=== PATIENT | female | born 1955 | race Caucasian/White ===

== ENCOUNTER 2023-02-20 09:34 | Inpatient (IN) ==
[2023-02-20] MEDS ORDERED: SODIUM CHLORIDE 0.9% 500 ML IV STA (09:45)
[2023-02-20] MEDS ORDERED: dilTIAZem HCl 5 MG/ML 5 ML VIAL IV STA ×2 (09:57→11:33)
[2023-02-20] MEDS: dilTIAZem HCL 125 MG in DEXTROSE 5% 100 ML IV SCH ×2 (10:26→23:48)
[2023-02-20 10:44] LABS: Basophils # (auto) 0.02 K/uL (0-0.2); Basophils % (auto) 0.2 %; Eosinophils # (auto) 0.15 K/uL (0-0.50); Eosinophils % (auto) 1.6 %; Hemoglobin 13.1 g/dl (12.0-16.0); Immature Granulocytes # (auto) 0.25 K/uL (0.01-0.20); Immature Granulocytes % (auto) 2.6 %; Lymphocytes # (auto) 1.26 K/uL (1.2-3.4); Lymphocytes % (auto) 13.2 %; Mean Corpuscular Hemoglobin 28.9 pg (25.0-34.0); Mean Corpuscular Hgb Conc 33.6 g/dL (32.0-36.0); Mean Corpuscular Volume 85.9 fL (80.0-100.0); Mean Platelet Volume 10.5 fL (9.4-12.4); Monocytes # (auto) 0.61 K/uL (0.11-0.59); Monocytes % (auto) 6.4 %; Neutrophils # (auto) 7.25 K/uL (1.40-6.50); Platelet Count 242 K/uL (130-400); RDW Coefficient of Variation 14.4 % (11.5-14.5); RDW Standard Deviation 45.4 fL (36.4-46.3); Red Blood Count 4.54 M/uL (4.20-5.40); White Blood Count 9.54 K/ul (4.8-10.8)
[2023-02-20 10:51] LABS: Albumin Globulin Ratio 1.1 (0.9-2); Albumin Level 3.8 gm/dl (3.4-5.0); BUN Creatinine Ratio 26.7 (10-20); Bilirubin,Total 0.8 mg/dl (0.2-1.0); Calcium 8.7 mg/dl (8.6-10.3); Creatinine Clr Calc Pharmacy 73.1 ml/min; Est GFR (African American) 67.2 ml/min; Globulin 3.4 gm/dl (2.5-4.0); Magnesium 1.8 mg/dl (1.7-2.4); Potassium 3.1 mmol/L (3.5-5.1); Total Protein 7.2 gm/dl (6.0-8.3)
[2023-02-20 10:55] LABS: Troponin I High Sensitivity 8.8 pg/ml (0-14)
[2023-02-20 10:59] LABS: INR 2.8 (0.9-1.1); Partial Thromboplastin Ratio 1.4; Partial Thromboplastin Time 39.2 Seconds (21.0-31.0); Prothrombin Time 28.7 Seconds (9.0-12.0)
[2023-02-20 11:13] LABS: Lyme Ab IgG w/WB Rflx Negative (Negative); Lyme Ab IgM w/WB Rflx Negative (Negative)
[2023-02-20] MEDS ORDERED: POTASSIUM CHLORIDE / WTR 10 MEQ/100 ML PLCT IV ONE (11:33)
[2023-02-20] MEDS ORDERED: POTASSIUM CHLORIDE CRTAB 20 MEQ TABCR PO STA (11:33)
[2023-02-20] MEDS ORDERED: MAGNESIUM SULFATE / D5W 1 GM/100 ML BAG IV ONE ×2 (11:35→15:57)
--- NOTE | 2023-02-20 11:35 | Emergency Department Note ---
Impression & Plan Atrial fibrillation with rapid ventricular response, Acute hypokalemia ED Provider Note INFORMANT: Patient ED PROVIDER(S): Bassam Sol MD CHIEF COMPLAINT: New onset A-fib PLAN: Disposition: Admitted Condition: Good Outpatient prescription management: none Referral: None MEDICAL DECISION MAKING: Patient presented because of ruptured atrial fibrillation. She was evaluated. Clinically she was doing relatively well despite the tachycardia. She was started on Cardizem bolus and drip. This was titrated. The patient was found to have a mildly low magnesium and potassium with regards to this rapid A-fib. She was treated with IV magnesium and IV potassium. Patient received an additional Cardizem bolus. Her rate gradually improved. Patient was reassessed. Discussed further management in the hospital. Patient was in agreement. Consultation was made with the [facility] hospitalist service. Patient was evaluated in the ER admitted for further management Discussed with care process manager. Discussed with ED pharmacist. After review of the information above and other included data, I feel the patient is admission. Triage Nursing notes reviewed and agree them. Vital Signs: reviewed and remarkable for tachycardia Prior /Outside records reviewed: none Differential diagnosis: Premature contractions, electrolyte abnormality, cardiac dysrhythmia, thyroid dysfunction, pulmonary embolism, infection, gastrointestinal, as well as other pathologies. Diagnostics, as interpreted by me: ECG: Twelve-lead ECG reveals atrial fibrillation with rapid ventricular sponsor low-voltage QRS and a nonspecific ST abnormality at [address] elevation. Cardiac Monitoring: Cardiac monitoring ordered by me: The patient was placed on continuous cardiac monitoring and observed. It revealed atrial fibrillation at 153 bpm. Medical decision rules: none Imaging studies: Chest x-ray. Findings: A chest x-ray was performed and revealed no pneumothorax, effusion, infiltrate, pulmonary edema, free air under the diaph ragm, or wide mediastinum. Impression: No acute disease. HPI: The patient is a 67year old female who presents to the Emergency Room with complaints of new onset A-fib. This started several days ago and is persisting but intermittent. Patient notes that her smart watch was revealing periods of tachycardia. The patient also notes the following associated symptoms, none. The patient has been prescribed no new medication for relieving factors. Current pain is rated as 0/10. Patient went to the [facility] office and was directed to the ER due to findings consistent with atrial fibrillation. Respaire Dr. Cuenca at claimant thank you pt denies LOC, headache, fevers, chills, diaphoresis, visual changes, neck pain, chest pain, breathing difficulties, nausea, vomiting, abdominal pain, back pain, melena, hematochezia, urinary symptoms, numbness, weakness, lymphadenopathy, rash, or other complaints. PAST MEDICAL HISTORY: See Below, anticoagulated, PE PAST SURGICAL HISTORY: See Below, SOCIAL HISTORY: See Below, HOME MEDICATIONS: See Below ALLERGIES: See Below VITALS: See Below PHYSICAL EXAMINATION: ,GENERAL: Awake, alert, well-appearing, in no distress HENT: Normocephalic, atraumatic. Oropharynx unremarkable. EYES: Normal conjunctiva. Sclera non-icteric. NECK: Inspection normal. Non-tender. Supple. No nuchal rigidity. FROM. No masses. RESPIRATORY: Clear to auscultation. No wheezes. No rales. Normal respiratory effort. CARDIAC: Tachycardic rate. Irregular rhythm. No murmurs. No rubs. Extremities warm and well perfused. Pulses equal. No JVD. GI: Soft, non-distended. No tenderness to palpation. No rebound or guarding. No masses. RECTAL: Deferred. MUSCULOSKELETAL: Atraumatic. Chest examination reveals no tenderness. The back is symmetrical on inspection without obvious abnormality. There is no CVA tenderness to palpation. No joint edema. LOWER EXTREMITIES: Calves are equal size bilaterally and non-tender. No edema. Chronic venous discoloration. NEURO: Normal sensorium. No sensory or motor deficits noted. SKIN: No rash or jaundice noted. CRITICAL CARE: I have personally spent greater than 35 minutes of critical care time in the direct management of this patient. This includes bedside care, interpretation of diagnostic studies, and testing, discussion with consultants, patient, and family members, and other required patient management activities. These minutes are in excess of all separately billable procedures. Past Med/Surg History Medical History (Updated 02/20/23 @ 12:56 by Tatyana Boyd PA-C) Depression DVT (deep venous thrombosis) HTN (hypertension) Hx of pulmonary embolus Hx of thyroid cancer Post-surgical hypothyroidism Surgical History H/O neck surgery H/O tubal ligation Hx of thyroidectomy with neck dissection for thyroid cancer Family History Father Heart disease Myocardial infarction first at age 48 Other Breast cancer Social History (Updated 02/20/23 @ 12:11 by Tatyana Boyd PA-C) Smoking Status: Never smoker Do You Dip or Chew Tobacco: No; Hx Alcohol Use: No Hx Substance Use: No Preferred Language: Yoruba marital status: Feels Safe at Home: Yes Allergies Allergies Allergy/AdvReac Type Severity Reaction Status Date / Time No Known Allergies Allergy Unknown 0 Verified 02/20/23 12:02 Home Meds Home Medications Medication Instructions Recorded Confirmed amlodipine 10 mg tablet 10 mg PO DAILY 02/20/23 02/20/23 cholecalciferol (vitamin D3) 10 10 mcg PO DAILY 02/20/23 02/20/23 mcg (400 unit) tablet (Vitamin D3) fluticasone propionate 50 50 mcg intranasal DAILY 02/20/23 02/20/23 mcg/actuation nasal spray,suspension hydrochlorothiazide 25 mg tablet 25 mg PO BID 02/20/23 02/20/23 levothyroxine 175 mcg tablet 175 mcg PO DAILY@0630 02/20/23 02/20/23 omeprazole 20 mg capsule,delayed 20 mg PO DAILY 02/20/23 02/20/23 release warfarin 10 mg tablet 5 mg PO MO@1600 02/20/23 02/20/23 warfarin 10 mg tablet 10 mg PO SUTUWETHFRSA@1600 02/20/23 02/20/23 Results & Data (ED) Vital Signs Vital Signs - 24 hr 02/20/23 09:41 02/20/23 09:46 02/20/23 09:58 Temperature 36.5 C Temperature Source Oral Pulse Rate 188 H 171 H Pulse Rate [Apical] 158 H Pulse Rhythm [Apical] Pulse Strength [Apical] Respiratory Rate 16 15 Blood Pressure 137/88 Blood Pressure [Left Arm] 137/100 Blood Pressure Mean 104 Blood Pressure Mean [Left Arm] 112 Blood Pressure Position Sitting Blood Pressure Position [Left Arm] Pulse Oximetry 98 98 Oxygen Delivery Method Room Air Oxygen Flow Rate Sepsis Recent Fever Within 48 Hours No Sepsis New/Unexplained Change in Mental Status No Sepsis Action Taken by Nursing No Action Required 02/20/23 10:52 02/20/23 11:08 02/20/23 11:46 Temperature Temperature Source Pulse Rate Pulse Rate [Apical] 144 H 153 H 154 H Pulse Rhythm [Apical] Irregular Pulse Strength [Apical] Normal Respiratory Rate 18 16 18 Blood Pressure Blood Pressure [Left Arm] 118/96 134/80 119/98 Blood Pressure Mean Blood Pressure Mean [Left Arm] 103 98 105 Blood Pressure Position Blood Pressure Position [Left Arm] Lying Pulse Oximetry 93 93 94 Oxygen Delivery Method Nasal Cannula Room Air Oxygen Flow Rate 2 Sepsis Recent Fever Within 48 Hours Sepsis New/Unexplained Change in Mental Status Sepsis Action Taken by Nursing 02/20/23 13:31 02/20/23 14:00 Temperature Temperature Source Pulse Rate Pulse Rate [Apical] 131 H 119 H Pulse Rhythm [Apical] Pulse Strength [Apical] Respiratory Rate 22 19 Blood Pressure Blood Pressure [Left Arm] 113/89 Blood Pressure Mean Blood Pressure Mean [Left Arm] 97 Blood Pressure Position Blood Pressure Position [Left Arm] Sitting Pulse Oximetry 93 93 Oxygen Delivery Method Room Air Oxygen Flow Rate Sepsis Recent Fever Within 48 Hours Sepsis New/Unexplained Change in Mental Status Sepsis Action Taken by Nursing Laboratory Data 02/20/23 09:59 02/20/23 09:59 Lab Results 02/20/23 02/20/23 02/20/23 Range/Units 09:59 09:59 09:59 WBC 9.54 (4.8-10.8) K/ul RBC 4.54 (4.20-5.40) M/uL Hgb 13.1 (12.0-16.0) g/dl Hct 39.0 (37.0-47.0) % MCV 85.9 (80.0-100.0) fL MCH 28.9 (25.0-34.0) pg MCHC 33.6 (32.0-36.0) g/dL RDW Std Deviation 45.4 (36.4-46.3) fL RDW Coeff of Torsten 14.4 (11.5-14.5) % Plt Count 242 (130-400) K/uL MPV 10.5 (9.4-12.4) fL Immature Gran % (Auto) 2.6 % Neut % (Auto) 76.0 % Lymph % (Auto) 13.2 % [place] % (Auto) 6.4 % Eos % (Auto) 1.6 % Baso % (Auto) 0.2 % Neut # (Auto) 7.25 H (1.40-6.50) K/uL Lymph # (Auto) 1.26 (1.2-3.4) K/uL [place] # (Auto) 0.61 H (0.11-0.59) K/uL Eos # (Auto) 0.15 (0-0.50) K/uL Baso # (Auto) 0.02 (0-0.2) K/uL Immature Gran # (Auto) 0.25 H (0.01-0.20) K/uL PT 28.7 H (9.0-12.0) Seconds INR 2.8 H (0.9-1.1) APTT 39.2 H (21.0-31.0) Seconds PTT Ratio 1.4 Sodium 139 (136-145) mmol/L Potassium 3.1 L (3.5-5.1) mmol/L Chloride 101 (98-107) mmol/L Carbon Dioxide 27 (21-32) mmol/L Anion Gap 11 (3-11) BUN 27 H (6-23) mg/dl Creatinine 1.01 (0.6-1.2) mg/dl Est Cr Clr Drug Dosing 73.1 ml/min Est GFR ( Amer) 67.2 ml/min Est GFR (Non-Af Amer) 58.0 ml/min BUN/Creatinine Ratio 26.7 H (10-20) Glucose 104 H (70-99(Fasting)) mg/dl Calcium 8.7 (8.6-10.3) mg/dl Magnesium 1.8 (1.7-2.4) mg/dl Total Bilirubin 0.8 (0.2-1.0) mg/dl AST 123 H (13-39) U/L ALT 88 H (7-52) U/L Alkaline Phosphatase 109 H (34-104) U/L Troponin I High Sens 8.8 (0-14) pg/ml Total Protein 7.2 (6.0-8.3) gm/dl Albumin 3.8 (3.4-5.0) gm/dl Globulin 3.4 (2.5-4.0) gm/dl Albumin/Globulin Ratio 1.1 (0.9-2) TSH (0.300-4.500) uIu/ml Lyme Disease IgG Ab (Negative) Lyme Disease IgM Ab (Negative) SARS-CoV-2, RNA, NAAT (NEGATIVE) 02/20/23 02/20/23 02/20/23 Range/Units 09:59 09:59 Unknown WBC (4.8-10.8) K/ul RBC (4.20-5.40) M/uL Hgb (12.0-16.0) g/dl Hct (37.0-47.0) % MCV (80.0-100.0) fL MCH (25.0-34.0) pg MCHC (32.0-36.0) g/dL RDW Std Deviation (36.4-46.3) fL RDW Coeff of Torsten (11.5-14.5) % Plt Count (130-400) K/uL MPV (9.4-12.4) fL Immature Gran % (Auto) % Neut % (Auto) % Lymph % (Auto) % [place] % (Auto) % Eos % (Auto) % Baso % (Auto) % Neut # (Auto) (1.40-6.50) K/uL Lymph # (Auto) (1.2-3.4) K/uL [place] # (Auto) (0.11-0.59) K/uL Eos # (Auto) (0-0.50) K/uL Baso # (Auto) (0-0.2) K/uL Immature Gran # (Auto) (0.01-0.20) K/uL PT (9.0-12.0) Seconds INR (0.9-1.1) APTT (21.0-31.0) Seconds PTT Ratio Sodium (136-145) mmol/L Potassium (3.5-5.1) mmol/L Chloride (98-107) mmol/L Carbon Dioxide (21-32) mmol/L Anion Gap (3-11) BUN (6-23) mg/dl Creatinine (0.6-1.2) mg/dl Est Cr Clr Drug Dosing ml/min Est GFR ( Amer) ml/min Est GFR (Non-Af Amer) ml/min BUN/Creatinine Ratio (10-20) Glucose (70-99(Fasting)) mg/dl Calcium (8.6-10.3) mg/dl Magnesium (1.7-2.4) mg/dl Total Bilirubin (0.2-1.0) mg/dl AST (13-39) U/L ALT (7-52) U/L Alkaline Phosphatase (34-104) U/L Troponin I High Sens (0-14) pg/ml Total Protein (6.0-8.3) gm/dl Albumin (3.4-5.0) gm/dl Globulin (2.5-4.0) gm/dl Albumin/Globulin Ratio (0.9-2) TSH 1.949 (0.300-4.500) uIu/ml Lyme Disease IgG Ab Negative (Negative) Lyme Disease IgM Ab Negative (Negative) SARS-CoV-2, RNA, NAAT NEGATIVE (NEGATIVE) Administered Medications Diltiazem HCl 125 mg/ Dextrose 125 mls @ 10 mls/hr IV .[id number] [facility]; Protocol Stop: 03/22/23 09:59 Last Titration: 02/20/23 10:56 Dose: 10 mg/hr, 10 mls/hr Documented By: ROVERTO Co-signed By: BERNIE Admin: 02/20/23 10:26 Dose: 5 mg/hr, 5 mls/hr Documented By: ANATOLIY Co-signed By: GAGE Discontinued Medications Acetaminophen (Acetaminophen 325 Mg Tab) 650 mg PO NOW STA Stop: 02/20/23 12:41 Last Admin: 02/20/23 12:48 Dose: 650 mg Documented By: ROVERTO Diltiazem HCl (Diltiazem Hcl 5 Mg/Ml 5 Ml Vial) 10 mg IV NOW STA Stop: 02/20/23 09:58 Last Admin: 02/20/23 10:02 Dose: 10 mg Documented By: ANATOLIY Co-signed By: GAGE Diltiazem HCl (Diltiazem Hcl 5 Mg/Ml 5 Ml Vial) 10 mg IV NOW STA Stop: 02/20/23 11:34 Last Admin: 02/20/23 12:11 Dose: 10 mg Documented By: ROVERTO Co-signed By: BERNIE Sodium Chloride (Nss) 500 mls @ 999 mls/hr IV .Q31M STA Stop: 02/20/23 10:15 Last Infusion: 02/20/23 10:39 Dose: 0 mls/hr Documented By: Admin: 02/20/23 10:01 Dose: 999 mls/hr Documented By: ANATOLIY Potassium Chloride (K Moe / Wtr) 10 meq in 100 mls @ 100 mls/hr IV ONE ONE; Protocol Stop: 02/20/23 12:32 Last Admin: 02/20/23 12:14 Dose: 100 mls/hr Documented By: ROVERTO Magnesium Sulfate/Dextrose (Magnesium Sulfate / D5w) 1 gm in 100 mls @ 50 mls/hr IV ONE ONE Stop: 02/20/23 13:34 Last Admin: 02/20/23 12:19 Dose: 50 mls/hr Documented By: ROVERTO Metoprolol Tartrate (Metoprolol Tartrate 25 Mg Tab) 25 mg PO NOW STA Stop: 02/20/23 12:53 Last Admin: 02/20/23 13:11 Dose: 25 mg Documented By: BERNIE Potassium Chloride (Potassium Chloride Crtab 20 Meq Tabcr) 40 meq PO NOW STA Stop: 02/20/23 11:34 Last Admin: 02/20/23 12:14 Dose: 40 meq Documented By: ROVERTO Imaging Data Radiologist's Impression: Chest X-Ray 02/20/23 11:46 SINGLE VIEW CHEST CLINICAL HISTORY: Rapid atrial fibrillation. FINDINGS: An AP, portable, upright chest radiograph is compared to study dated 05/05/2009. The heart is enlarged. There is mild pulmonary vascular congestion. There is mild elevation of right hemidiaphragm. Airspace opacities are seen at both lung bases. No large pleural effusion or pneumothorax is seen. The skeletal structures are osteopenic. The bony thorax is grossly intact. IMPRESSION: 1. Cardiomegaly with mild pulmonary vascular congestion. 2. Bibasilar opacities could represent atelectasis versus a mild pneumonitis. Correlate clinically. ACT 112: Negative or not required by law. Electronically signed by: Momo Sewell M.D. 02/20/2023 12:[address] 02/20/23 12:56 CT chest diagnostic wo con CLINICAL HISTORY: ? pneumonitis, cough x 6 months TECHNIQUE: Multidetector row helical CT of the chest was performed. Coronal and sagittal reformations were obtained. Automated dose lowering techniques and/or adjustment according to patient size were utilized for this exam. CT DOSE: 856.73 mGy.cm Comparison: Comparison is made to chest radiograph 12/21/2022 FINDINGS: Lungs and pleura: No airspace opacities are seen. Interlobular septal thickening is seen most prominent in the lung bases. There is bronchial wall thickening as well. Multiple pulmonary nodules are seen including a 4 mm nodule in the right upper lobe (series 4 image 78), 4 mm nodule in the right upper lobe (image 103) and 3 mm nodules in the bilateral lower lobes (images [id number]), respectively. Heart and pericardium: Heart size is normal. No pericardial effusion. Vessels: Moderate atherosclerotic changes in the aorta and coronary arteries. Pulmonary trunk measures 37 mm in diameter. Mediastinum and javier: Subcentimeter lymph nodes are seen. Chest wall and lower neck: Subcentimeter right lower cervical node is seen. Abdomen: Calcifications in the spleen may represent prior granulomatous disease. Bones: Subacute to chronic fracture of the right lateral fourth rib noted. IMPRESSION: 1. No evidence of pneumonia. There is pulmonary hypertension with interstitial pulmonary edema. 2. Tiny pulmonary nodules as above. According to Fleischner criteria, no follow-up is required in low risk patients, in high-risk patients, a 12 month follow-up CT can be optionally performed. ACT 112: Negative or not required by law. Electronically signed by: Chuckie Lira M.D. 02/20/2023 2:30 PM Discharge Plan Visit Data Chief Complaint: Arrhythmia/Palpitations Stated Complaint: ABNORMAL HEART PALPITATIONS,AFIB ED Provider: Bassam Sol Discharge Problem: Atrial fibrillation with rapid ventricular response, Acute hypokalemia Forms Stand Alone Forms: [facility] [employer] Prescriptions Prescriptions: No Action levothyroxine 175 mcg tablet 175 mcg PO DAILY@0630 warfarin 10 mg tablet 10 mg PO SUTUWETHFRSA@1600 warfarin 10 mg tablet 5 mg PO MO@1600 amlodipine 10 mg tablet 10 mg PO DAILY omeprazole 20 mg capsule,delayed release(DR/EC) 20 mg PO DAILY hydrochlorothiazide 25 mg tablet 25 mg PO BID fluticasone propionate 50 mcg/actuation spray,suspension 50 mcg INTRANASAL DAILY cholecalciferol (vitamin D3) [Vitamin D3] 10 mcg (400 unit) Tablet 10 mcg PO DAILY Referrals Referrals: Campos Lange MD [Primary Care Provider] -
--- NOTE | 2023-02-20 11:58 | History & Physical Report ---
Date of Service February 20, 2023 Assessment & Plan (1) Atrial fibrillation with rapid ventricular response: (2) Acute hypokalemia: (3) HTN (hypertension): (4) Post-surgical hypothyroidism: (5) Chronic cough: Plan This is a 67-year-old female who has significant past medical history of HTN, hypothyroidism, CKD stage III, history of PE on long-term anticoagulation with warfarin and history of thyroid cancer who presents to ED secondary to referral from PCP 2/2 Afib. A-fib with RVR, new onset Admit to medical Continue diltiazem drip Initiate metoprolol tartrate 25 mg twice daily, first dose now Obtain echocardiogram Consult cardiology Replete electrolytes to keep K greater than 4 and mag greater than 2 INR therapeutic in setting of history of PE, [id number] 3 We will make n.p.o. after midnight in event procedure warranted Patient with chronic cough x6 months, chest x-ray showing atelectasis versus pneumonitis Obtain procalcitonin and chest CT without contrast as respiratory component could be possible because of A-fib Hypokalemia received 40meq KCL in ED along with 10meq K rider will give additional 40meq KCL at 1600 replete mag as well to keep > 2 Hypertension BP normal, hold amlodipine and HCTZ for now unless patient becomes hypertensive while on diltiazem drip and titrating metoprolol tartrate Postsurgical hypothyroidism Continue levothyroxine, TSH normal Chronic cough Patient's been following [facility] Recently had PET scan which was unremarkable showing no change in uptake of pulmonary nodules but did show new incidental finding of rib fracture Chest x-ray concerning for atelectasis versus pneumonitis Obtain procalcitonin and chest CT Encourage incentive spirometry 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 consider OP US DVT prophylaxis: Continue warfarin Full code PCP: Nazario Dispo: PCU for heart rate management Patient was seen in collaboration with, Dr. Smallwood, please see addendum A total of 75 was spent coordinating, documenting, and providing care for this patient excluding time spent in the performance of separately billed services. This included personally viewing all current laboratories and imaging studies, medication reconciliation, outpatient chart review, and discussion with specialists. History of Present Illness Chief Complaint: Referred by PCP office due to Afib. Primary Care Provider: Campos Lange MD This is a 67-year-old female who has significant past medical history of HTN, hypothyroidism, CKD stage III, history of PE on long-term anticoagulation with warfarin and history of thyroid cancer who presents to ED secondary to referral from PCP 2/2 Afib. Pt was seen in outpatient clinic today where outpatient EKG revealed afib with RVR. Her smart watch has been alerting her of elevated heart rates for the past few days. She states she saw provider today initally due to R sided neck and shoulder pain that started two days ago. She has tried tylenol with some relief. Pain is not related to movement and nothing seems to make worse. She has never has similar pain in the past. Denies any numbness or tingling or radiating pain to R arm. She also reports her Iwatch telling her that her HR was high in the 150s. In clinic EKG revealed afib with RVR so she was referred here. No prior hx of afib or cad. Denies CP, sob, dizziness, lightheaded, n/v/d, abd pain, change in bowel or urinary habits. Continues to have chronic dry cough. Also has R anterior chest/rib discomfort from broken ribs. Of significance patient has recently been following with pulmonology due to persistent cough. She has been prescribed Flonase and omeprazole without improvement in symptoms and her lisinopril has also been discontinued. She recently had a PET scan due to prior history of thyroid cancer which showed incidental finding of right-sided rib fractures and otherwise was negative except for stable pulm nodules. CT scan chest also showed right hilar lymph nodes unchanged, 1 right upper lobe nodule and 2 subcentimeter parenchymal nodules in the left lower lobe with low likelihood of malignancy. Tessalon Perles were added along with lidocaine patch for right-sided rib discomfort. She also was treated with a 2-week course of Augmentin antibiotic therapy due to recurrent bronchitis. Subsequently patient developed rash for which she saw dermatology on 02/15. She was prescribed a short course of prednisone at this appointment which was to finish today but she discontinued and antibiotic was d/c at that time. Allergies Allergy/AdvReac Type Severity Reaction Status Date / Time No Known Allergies Allergy Unknown 0 Verified 02/20/23 12:02 Home Medications Medication Instructions Recorded Confirmed Type amlodipine 10 mg tablet 10 mg PO DAILY 02/20/23 02/20/23 History cholecalciferol (vitamin D3) 10 10 mcg PO DAILY 02/20/23 02/20/23 History mcg (400 unit) tablet (Vitamin D3) fluticasone propionate 50 50 mcg intranasal DAILY 02/20/23 02/20/23 History mcg/actuation nasal spray,suspension hydrochlorothiazide 25 mg tablet 25 mg PO BID 02/20/23 02/20/23 History levothyroxine 175 mcg tablet 175 mcg PO DAILY@0602/20/23 02/20/23 History omeprazole 20 mg capsule,delayed 20 mg PO DAILY 02/20/23 02/20/23 History release warfarin 10 mg tablet 5 mg PO MO@1600 02/20/23 02/20/23 History warfarin 10 mg tablet 10 mg PO SUTUWETHFRSA@1600 02/20/23 02/20/23 History Past Med/Surg History Medical History (Updated 02/20/23 @ 12:56 by Tatyana Boyd PA-C) Depression DVT (deep venous thrombosis) HTN (hypertension) Hx of pulmonary embolus Hx of thyroid cancer Post-surgical hypothyroidism Surgical History H/O neck surgery H/O tubal ligation Hx of thyroidectomy with neck dissection for thyroid cancer Family History Father Heart disease Myocardial infarction first at age 48 Other Breast cancer Social History (Updated 02/20/23 @ 12:11 by Tatyana Boyd PA-C) Smoking Status: Never smoker Do You Dip or Chew Tobacco: No; Hx Alcohol Use: No Hx Substance Use: No Preferred Language: Tajik marital status: Feels Safe at Home: Yes Review of Systems Review of Systems: All systems reviewed & are unremarkable except as noted in HPI & below Physical Exam Physical Exam: Constitutional: WD/WN, vitals as above, NAD, sitting up in bed, pleasant, conversing easily Head: Normocephalic, Atraumatic Eyes: PERRL, conjunctivae normal, anicteric sclerae ENMT: external ear and nose normal, oropharynx normal Neck: trachea midline, no thyromegaly normal visual inspection Respiratory: normal respiratory effort, lungs clear to auscultation, no wheeze, rales, rhonchi. Normal insp/exp effort, no accessory muscle use Cardiovascular: IRR/IRR, no murmur, b/l obese lower ext, no meenakshi edema, b/l varicosities Vessels: no JVD or carotid bruit Chest: normal inspection of chest Abdomen: normal bowel sounds, soft, nontender, no hepatosplenomegaly Musculoskeletal: no cyanosis or clubbing, extremities motor strength 5/5 Skin: no rashes, warm and dry normal turgor Neurologic: PERRL, EOMI, accommodation nl, no face palsy, no dysarthria CN's II-XI intact bilaterally and moves all extremities Psychiatric: A+Ox3, euthymic affect Lymphatic: no cervical or axillary lymphadenopathy : deferred Results & Data Results & Data Vital Signs (Past 12 Hours) Vital Signs Temp Pulse Pulse Resp BP BP Pulse Ox 02/20/23 11:46 154 H 18 119/98 94 02/20/23 11:08 153 H 16 134/80 93 02/20/23 10:52 144 H 18 118/96 93 02/20/23 09:58 171 H 02/20/23 09:46 158 H 15 137/100 98 02/20/23 09:41 36.5 C 188 H 16 137/88 98 O2 Del Method O2 Flow Rate 02/20/23 11:46 02/20/23 11:08 Room Air 02/20/23 10:52 Nasal Cannula 2 02/20/23 09:58 02/20/23 09:46 02/20/23 09:41 Room Air Diagnostic Findings Chest X-Ray 02/20/23 11:46 SINGLE VIEW CHEST CLINICAL HISTORY: Rapid atrial fibrillation. FINDINGS: An AP, portable, upright chest radiograph is compared to study dated 05/05/2009. The heart is enlarged. There is mild pulmonary vascular congestion. There is mild elevation of right hemidiaphragm. Airspace opacities are seen at both lung bases. No large pleural effusion or pneumothorax is seen. The skeletal structures are osteopenic. The bony thorax is grossly intact. IMPRESSION: 1. Cardiomegaly with mild pulmonary vascular congestion. 2. Bibasilar opacities could represent atelectasis versus a mild pneumonitis. Co rrelate clinically. ACT 112: Negative or not required by law. Electronically signed by: Momo Sewell M.D. 02/20/2023 12:27 PM Medications Administered Medication List Diltiazem HCl 125 mg/ Dextrose 125 mls @ 5 mls/hr IV .Q24H [facility]; Protocol Stop: 03/22/23 09:59 Last Admin: 02/20/23 10:26 Dose: 5 mg/hr, 5 mls/hr Documented By: ANATOLIY Co-signed By: GAGE Discontinued Medications Diltiazem HCl (Diltiazem Hcl 5 Mg/Ml 5 Ml Vial) 10 mg IV NOW STA Stop: 02/20/23 09:58 Last Admin: 02/20/23 10:02 Dose: 10 mg Documented By: ANATOLIY Co-signed By: GAGE Sodium Chloride (Nss) 500 mls @ 999 mls/hr IV .Q31M STA Stop: 02/20/23 10:15 Last Infusion: 02/20/23 10:39 Dose: 0 mls/hr Documented By: Admin: 02/20/23 10:01 Dose: 999 mls/hr Documented By: ANATOLIY ECG Rate (beats per minute): 165 Rhythm: atrial fibrillation COVID-19 Results Results COVID-19 Adm Lab Results: RBC 4.54 M/uL (4.20-5.40) 02/20/23 WBC 9.54 K/ul (4.8-10.8) 02/20/23 Hgb 13.1 g/dl (12.0-16.0) 02/20/23 Hct 39.0 % (37.0-47.0) 02/20/23 Plt Count 242 K/uL (130-400) 02/20/23 Neutrophils (%) (Auto) 76.0 % 02/20/23 Lymphocytes (%) (Auto) 13.2 % 02/20/23 Monocytes # (Auto) 0.61 K/uL (0.11-0.59) H 02/20/23 Eosinophils # (Auto) 0.15 K/uL (0-0.50) 02/20/23 Immature Granulocyte % (Auto) 2.6 % 02/20/23 Neutrophils # (Auto) 7.25 K/uL (1.40-6.50) H 02/20/23 Lymphocytes # (Auto) 1.26 K/uL (1.2-3.4) 02/20/23 Monocytes # (Auto) 0.61 K/uL (0.11-0.59) H 02/20/23 Eosinophils # (Auto) 0.15 K/uL (0-0.50) 02/20/23 Basophils # (Auto) 0.02 K/uL (0-0.2) 02/20/23 Immature Granulocyte # (Auto) 0.25 K/uL (0.01-0.20) H 02/20 Na 139 mmol/L (136-145) 02/20/23 K 3.1 mmol/L (3.5-5.1) L 02/20/23 Cl 101 mmol/L (98-107) 02/20/23 CO2 27 mmol/L (21-32) 02/20/23 Anion Gap 11 (3-11) 02/20/23 BUN 27 mg/dl (6-23) H 02/20/23 Creatinine 1.01 mg/dl (0.6-1.2) 02/20/23 BUN/Creatinine Ratio 26.7 (10-20) H 02/20/23 Glucose Level 104 mg/dl (70-99(Fasting)) H 02/20/23 Ca 8.7 mg/dl (8.6-10.3) 02/20/23 Total Bilirubin 0.8 mg/dl (0.2-1.0) 02/20/23 AST/SGOT 123 U/L (13-39) H 02/20/23 ALT/SGPT 88 U/L (7-52) H 02/20/23 Alkaline Phosphatase 109 U/L (34-104) H 02/20/23 Total Protein 7.2 gm/dl (6.0-8.3) 02/20/23 Albumin 3.8 gm/dl (3.4-5.0) 02/20/23 Globulin 3.4 gm/dl (2.5-4.0) 02/20/23 Albumin/Globulin Ratio 1.1 (0.9-2) 02/20/23 Procalcitonin 0.19 ng/ml (0-0.5) 02/20/23 PTT 39.2 Seconds (21.0-31.0) H 02/20/23 INR 2.8 (0.9-1.1) H 02/20/23 SARS-CoV-2, RNA, NAAT NEGATIVE (NEGATIVE) 02/20/[address] 02/20/23 Chest X-Ray 02/20/23 Code Status & VTE Plan Code Status FULL CODE Supervising Physician Co-Signing Physician Notes Attending addendum: The patient was seen and examined in the emergency room She has been complaining of some right shoulder and upper back pain for the last 2 days without any associated symptoms She was sent in from doctor's office with tachycardia which was noted by the patient in her watch She denies any palpitation, chest pain, shortness of breath Complains to have dry cough for a while and that has improved a little following stopping of lisinopril On examination Remains stable in the emergency room and the heart rate has been improving Otherwise hemodynamically stable Chestclear to auscultate bilaterally HeartS1, S2, irregularly irregular without any murmur Abdomenbenign Extremitieschronic swelling of the legs likely secondary to lymphedema and may have trace edema as well 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
--- NOTE | 2023-02-20 12:29 | XRay Report ---
SINGLE VIEW CHEST CLINICAL HISTORY: Rapid atrial fibrillation. FINDINGS: An AP, portable, upright chest radiograph is compared to study dated 05/05/2009. The heart i s enlarged. There is mild pulmonary vascular congestion. There is mild elevation of right hemidiaphra gm. Airspace opacities are seen at both lung bases. No large pleural effusion or pneumothorax is seen . The skeletal structures are osteopenic. The bony thorax is grossly intact. IMPRESSION: 1. Cardiomegaly with mild pulmonary vascular congestion. 2. Bibasilar opacities could represent atelectasis versus a mild pneumonitis. Correlate clinically. ACT 112: Negative or not required by law. Electronically signed by: Momo Sewell M.D. 02/20/2023 12:27 PM
[2023-02-20] MEDS ORDERED: ACETAMINOPHEN 325 MG TAB PO STA (12:40)
[2023-02-20] MEDS ORDERED: METOPROLOL TARTRATE 25 MG TAB PO STA (12:52)
--- NOTE | 2023-02-20 14:31 | CT Scan Report ---
CT chest diagnostic wo con CLINICAL HISTORY: ? pneumonitis, cough x 6 months TECHNIQUE: Multidetector row helical CT of the chest was performed. Coronal and sagittal reformations were obtained. Automated dose lowering techniques and/or adjustment according to patient size were u tilized for this exam. CT DOSE: 856.73 mGy.cm Comparison: Comparison is made to chest radiograph 12/21/2022 FINDINGS: Lungs and pleura: No airspace opacities are seen. Interlobular septal thickening is seen most promine nt in the lung bases. There is bronchial wall thickening as well. Multiple pulmonary nodules are seen including a 4 mm nodule in the right upper lobe (series 4 image 78), 4 mm nodule in the right upper lobe (image 103) and 3 mm nodules in the bilateral lower lobes (images 1 [id number]), respectively. Heart and pericardium: Heart size is normal. No pericardial effusion. Vessels: Moderate atherosclerotic changes in the aorta and coronary arteries. Pulmonary trunk measure s 37 mm in diameter. Mediastinum and javier: Subcentimeter lymph nodes are seen. Chest wall and lower neck: Subcentimeter right lower cervical node is seen. Abdomen: Calcifications in the spleen may represent prior granulomatous disease. Bones: Subacute to chronic fracture of the right lateral fourth rib noted. IMPRESSION: 1. No evidence of pneumonia. There is pulmonary hypertension with interstitial pulmonary edema. 2. Tiny pulmonary nodules as above. According to Fleischner criteria, no follow-up is required in lo w risk patients, in high-risk patients, a 12 month follow-up CT can be optionally performed. ACT 112: Negative or not required by law. Electronically signed by: Chuckie Lira M.D. 02/20/2023 2:30 PM
[2023-02-20] MEDS ORDERED: MAGNESIUM HYDROXIDE SUSP 30 ML UDC PO PRN (15:57)
[2023-02-20] MEDS ORDERED: POLYETHYLENE (MIRALAX) 17 GM PACK PO PRN (15:57)
[2023-02-20] MEDS ORDERED: ALUMINUM/MAGNESIUM SUSP 30 ML UDC PO PRN (15:57)
[2023-02-20] MEDS ORDERED: ACETAMINOPHEN 325 MG TAB PO PRN (15:57)
[2023-02-20] MEDS ORDERED: ONDANSETRON INJ 2 MG/ML 2 ML VIAL IV PRN (15:57)
[2023-02-20] MEDS ORDERED: POTASSIUM CHLORIDE CRTAB 20 MEQ TABCR PO ONE (16:00)
--- NOTE | 2023-02-20 17:04 | Ultrasound Report ---
ULTRASOUND RIGHT UPPER QUADRANT ABDOMEN CLINICAL HISTORY: Elevated hepatic transaminases. COMPARISON STUDY: No priors. TECHNIQUE: Real-time, grayscale, and color flow sonography of the right upper quadrant of the abdomen was performed. Images are reviewed in the transverse and longitudinal planes. FINDINGS: Liver: The liver is mildly enlarged, cirrhotic in morphology, and heterogeneous in echotexture. There is nodularity of the hepatic surface contour. There is no intrahepatic biliary ductal dilatation. Th e main portal vein is patent. Gallbladder: The gallbladder is normal in appearance. No gallstones are identified. There is no gallb ladder wall thickening or pericholecystic fluid. A sonographic Mcgarry's sign is reportedly absent. Th e common bile duct measures up to 0.2 cm in diameter. Pancreas: Visualized portions of the pancreatic head and body are normal in appearance. The splenic v ein is patent. Right kidney: Survey images of the right kidney demonstrate mild cortical atrophy. Echotexture is nor mal. There is no hydronephrosis. A 4.0 cm renal sinus cyst is noted. Ascites: None. IMPRESSION: 1. The liver is cirrhotic in morphology and heterogeneous in echotexture. 2. No gallstones are seen. ACT 112: Negative or not required by law. Electronically signed by: Momo Sewell M.D. 02/20/2023 5:03 PM
[2023-02-20] MEDS: WARFARIN SOD 10 MG TAB PO SCH (17:22)
[2023-02-20] MEDS: METOPROLOL TARTRATE 25 MG TAB PO SCH (20:51)
[2023-02-20] MEDS ORDERED: oxyCODONE HCL IR 5 MG TAB (IMMEDIATE RELEASE) PO PRN (23:17)
[2023-02-21] MEDS ORDERED: FUROSEMIDE INJ 20 MG/2 ML VIAL IV ONE (00:38)
--- NOTE | 2023-02-21 01:15 | CT Scan Report ---
Exam(s): CT HEAD Without Contrast EXAM: CT Head Without Intravenous Contrast CLINICAL HISTORY: Reason for exam: villeda. TECHNIQUE: Axial computed tomography images of the head/brain without intravenous contrast. Automated exposure control was utilized for the study. A dose lowering technique was utilized adhering to the principles of ALARA. COMPARISON: No relevant prior studies available. FINDINGS: Brain: Mild volume loss with prominent ventricles and sulci. Mild periventricular and subcortical white matter hypoattenuation likely reflects chronic small vessel disease. No hemorrhage. Ventricles: See above. Bones/joints: Unremarkable. No acute fracture. Soft tissues: Unremarkable. Sinuses: Unremarkable as visualized. No acute sinusitis. Mastoid air cells: Unremarkable as visualized. No mastoid effusion. IMPRESSION: No acute findings in the head/brain. Electronically signed by: Mellissa Olvera M.D. 02/21/23 01:14 AM
--- NOTE | 2023-02-21 01:21 | CT Scan Report ---
Exam(s): CT C SPINE EXAM: CT Cervical Spine Without Intravenous Contrast CLINICAL HISTORY: Reason for exam: neck pain. TECHNIQUE: Axial computed tomography images of the cervical spine without intravenous contrast. Automated exposure control was utilized for the study. A dose lowering technique was utilized adhering to the principles of ALARA. COMPARISON: No relevant prior studies available. FINDINGS: Vertebrae: Grade 1 anterolisthesis of C4 on 5. Straightening of the cervical lordosis. No acute fracture. Discs/spinal canal/neural foramina: Degenerative changes. No severe spinal canal stenosis. C5-6 degenerative changes with mild to moderate central canal and foraminal stenoses. Soft tissues: Unremarkable. IMPRESSION: 1. No evidence of acute fracture or malalignment. 2. Degenerative changes as above. Electronically signed by: Mellissa Olvera M.D. 02/21/23 01:20 AM
[2023-02-21 06:14] LABS: Hematocrit (blood only) 37.7 % (37.0-47.0); Hemoglobin 12.5 g/dl (12.0-16.0); Mean Corpuscular Hemoglobin 28.7 pg (25.0-34.0); Mean Corpuscular Hgb Conc 33.2 g/dL (32.0-36.0); Mean Corpuscular Volume 86.7 fL (80.0-100.0); Platelet Count 167 K/uL (130-400); RDW Coefficient of Variation 14.6 % (11.5-14.5); RDW Standard Deviation 46.5 fL (36.4-46.3); Red Blood Count 4.35 M/uL (4.20-5.40); White Blood Count 9.45 K/ul (4.8-10.8)
[2023-02-21] MEDS ORDERED: LEVOTHYROXINE SODIUM 175 MCG TABLET PO SCH (06:30)
[2023-02-21 06:36] LABS: Alanine Aminotransferase 98 U/L (7-52); Albumin Globulin Ratio 1.2 (0.9-2); Albumin Level 3.5 gm/dl (3.4-5.0); Alkaline Phosphatase 93 U/L (34-104); Anion Gap 7 (3-11); BUN Creatinine Ratio 26.9 (10-20); Bilirubin,Total 0.9 mg/dl (0.2-1.0); Blood Urea Nitrogen 25 mg/dl (6-23); Calcium 8.4 mg/dl (8.6-10.3); Carbon Dioxide 26 mmol/L (21-32); Chloride 102 mmol/L (98-107); Creatinine Clr Calc Pharmacy 78.7 ml/min; Est GFR (African American) 74.2 ml/min; Glucose 108 mg/dl (70-99(Fasting)); Magnesium 2.3 mg/dl (1.7-2.4); Sodium 135 mmol/L (136-145); Total Protein 6.5 gm/dl (6.0-8.3)
[2023-02-21 06:42] LABS: INR 2.5 (0.9-1.1); Prothrombin Time 26.3 Seconds (9.0-12.0)
--- NOTE | 2023-02-21 07:44 | XRay Report ---
XR chest 1V portable CLINICAL HISTORY: sob TECHNIQUE: Single frontal radiograph of the chest was obtained. Comparison: Comparison is made to chest radiograph 02/20/2023 FINDINGS: No lines and tubes are seen. Cardiomegaly is noted. Lungs are underinflated but clear. No evidence of pleural effusion or pneumothorax. IMPRESSION: No acute abnormalities and in particular no radiographic evidence of pneumonia. ACT 112: Negative or not required by law. Electronically signed by: Chuckie Lira M.D. 02/21/2023 7:43 AM
[2023-02-21] MEDS: METOPROLOL TARTRATE 25 MG TAB PO SCH (08:18)
[2023-02-21 08:39] LABS: Potassium 4.4 mmol/L (3.5-5.1)
[2023-02-21] MEDS ORDERED: PANTOprazole 40 MG TAB PO SCH (09:00)
[2023-02-21] MEDS ORDERED: CHOLECALCIFEROL 400 UNITS 10 MCG TAB PO SCH (09:00)
--- NOTE | 2023-02-21 10:07 | Anesthesiology Consultation ---
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 w/Anesthesia - King Pathak MD Height/Weight Height: 5 ft 4 in Weight: 127.3 kg Allergies Allergy/AdvReac Type Severity Reaction Status Date / Time No Known Allergies Allergy Unknown 0 Verified 02/20/23 12:02 Medications Home Medications Medication Instructions Recorded Confirmed Last Taken amlodipine 10 mg tablet 10 mg PO DAILY 02/20/23 02/20/23 Unknown cholecalciferol (vitamin D3) 10 10 mcg PO DAILY 02/20/23 02/20/23 Unknown mcg (400 unit) tablet (Vitamin D3) fluticasone propionate 50 50 mcg intranasal DAILY 02/20/23 02/20/23 Unknown mcg/actuation nasal spray,suspension hydrochlorothiazide 25 mg tablet 25 mg PO BID 02/20/23 02/20/23 Unknown levothyroxine 175 mcg tablet 175 mcg PO DAILY@0630 02/20/23 02/20/23 Unknown omeprazole 20 mg capsule,delayed 20 mg PO DAILY 02/20/23 02/20/23 Unknown release warfarin 10 mg tablet 5 mg PO MO@1600 02/20/23 02/20/23 Unknown warfarin 10 mg tablet 10 mg PO SUTUWETHFRSA@1600 02/20/23 02/20/23 Unknown Active Medications Generic Name Dose Route Start Last Admin Trade Name Freq PRN Reason Stop Dose Admin Acetaminophen 650 mg 02/20/23 15:57 02/20/23 17:24 Acetaminophen 325 Mg Tab PO 03/22/23 15:56 650 mg Q4H PRN Administration Pain or Fever Diltiazem HCl 125 mg/ Dextrose 125 mls @ 15 mls/hr 02/20/23 10:00 02/20/23 23:48 IV 03/22/23 09:59 15 mg/hr .Q8H20M JOSE RAMON 15 mls/hr Administration Protocol 15 MG/HR Levothyroxine Sodium 175 mcg 02/21/23 06:30 02/21/23 05:30 Levothyroxine Sodium 175 Mcg Tablet PO 03/23/23 06:29 175 mcg DAILY@0630 [facility] Administration Metoprolol Tartrate 25 mg 02/20/23 21:00 02/21/23 08:18 Metoprolol Tartrate 25 Mg Tab PO 03/22/23 20:59 25 mg BID JOSE RAMON Administration Ondansetron HCl 4 mg 02/20/23 15:57 02/21/23 03:50 Ondansetron Inj 2 Mg/Ml 2 Ml Vial IV 03/22/23 15:56 4 mg Q6H PRN Administration Nausea Oxycodone HCl 5 - 10 mg 02/20/23 23:17 02/20/23 23:33 Oxycodone Hcl Ir 5 Mg Tab (Immediate Release) PO 03/06/23 23:16 10 mg QID PRN Administration Pain Pantoprazole Sodium 40 mg 02/21/23 09:00 02/21/23 08:18 Pantoprazole 40 Mg Tab PO 03/23/23 08:59 40 mg DAILY JOSE RAMON Administration Vitamin D 400 units 02/21/23 09:00 02/21/23 08:18 Cholecalciferol 400 Units 10 Mcg Tab PO 03/23/23 08:59 400 units DAILY JOSE RAMON Administration Warfarin Sodium 10 mg 02/20/23 16:00 02/20/23 17:22 Warfarin Sod 10 Mg Tab PO 03/22/23 15:59 10 mg SUTUWETHFRSA@1600 JOSE RAMON Administration Past Medical History Medical History Depression DVT (deep venous thrombosis) HTN (hypertension) Hx of pulmonary embolus Hx of thyroid cancer Post-surgical hypothyroidism Past Family History Family History Father Heart disease Myocardial infarction first at age 48 Other Breast cancer Past Surgical History Surgical History H/O neck surgery H/O tubal ligation Hx of thyroidectomy with neck dissection for thyroid cancer Social History Smoking Status: Never smoker Do You Dip or Chew Tobacco: No Hx Alcohol Use: No Hx Substance Use: No Physical Exam Vital Signs Last Vital Signs Temp 98.4 F 02/21/23 07:44 Pulse 112 H 02/21/23 07:44 Resp 20 02/21/23 07:44 BP 112/77 02/21/23 07:44 Pulse Ox 90 02/21/23 07:44 O2 Del Method Nasal Cannula 02/21/23 07:44 O2 Flow Rate 2 02/21/23 07:44 Testing Laboratory Results 02/21/23 05:52 02/21/23 07:49 PT 26.3 Seconds (9.0-12.0) H 02/21/23 05:52 INR 2.5 (0.9-1.1) H 02/21/23 05:52 APTT 39.2 Seconds (21.0-31.0) H 02/20/23 09:59
[2023-02-21] MEDS ORDERED: LIDOCAINE 2% 2 ML VIAL/AMP(20MG/ML) INFIL ONE (10:14)
[2023-02-21] MEDS ORDERED: PROPOFOL IV EMULSION 10 MG/ML 20 ML VIAL IV ONE (10:14)
--- NOTE | 2023-02-21 10:16 | Cardiology Consultation ---
Date of Consultation February 21, 2023 Assessment & Plan (1) Atrial fibrillation with rapid ventricular response: (2) Chronic cough: (3) HTN (hypertension): Plan Patient is a 67-year-old female with history of hypertension, past PE DVT presents with newly observed atrial fibrillation with elevated ventricular sponsor rate. Patient aware of palpitations and elevated heart rate by heart rate monitor watch. Heart rates have not slowed significantly with metoprolol and IV diltiazem. Echocardiogram demonstrates preserved LV systolic function with mild left ventricular hypertrophy Plan: New onset atrial fibrillation possibly exacerbated by recent pulmonary issues. Underlying risk factors of hypertension. Patient chronically anticoagulated with warfarin without interruption. Given limited response to medical therapies have recommended proceeding to synchronized electrical c ardioversion. IV diltiazem discontinued. Patient n.p.o. We will make arrangements for synchronized electrical cardioversion this morning with further recommendations pending the results of procedure Atrial fibrillation and management discussed in detail with patient and Risks and benefits of synchronized cardioversion discussed History of Present Illness Reason for Consultation: New onset atrial fibrillation Requesting Physician: Dr. Smallwood Attending Physician: Rohan Smallwood MD History of Present Illness Patient is a 67-year-old female with ongoing medical issues of 1. Hypertension 2. 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 Possible allergic reaction to amoxicillin treated with prednisone Evening before admission patient noted on heart rate monitor watch elevated heart rate with sensation of palpitations. No chest pain, shortness of breath, syncope, near syncope. Patient's been chronically anticoagulated due to past DVT pulmonary embolus without interruption Currently asymptomatic. Treatment with metoprolol and IV diltiazem had little effect on heart rate heart rates running 110s to 120s though significantly elevated on initial presentation. No prior history of valvular disease or structural heart disease Allergies Allergy/AdvReac Type Severity Reaction Status Date / Time No Known Allergies Allergy Unknown 0 Verified 02/20/23 12:02 Home Medications Medication Instructions Recorded Confirmed Type amlodipine 10 mg tablet 10 mg PO DAILY 02/20/23 02/20/23 History cholecalciferol (vitamin D3) 10 10 mcg PO DAILY 02/20/23 02/20/23 History mcg (400 unit) tablet (Vitamin D3) fluticasone propionate 50 50 mcg intranasal DAILY 02/20/23 02/20/23 History mcg/actuation nasal spray,suspension hydrochlorothiazide 25 mg tablet 25 mg PO BID 02/20/23 02/20/23 History levothyroxine 175 mcg tablet 175 mcg PO DAILY@0630 02/20/23 02/20/23 History omeprazole 20 mg capsule,delayed 20 mg PO DAILY 02/20/23 02/20/23 History release warfarin 10 mg tablet 5 mg PO MO@1600 02/20/23 02/20/23 History warfarin 10 mg tablet 10 mg PO SUTUWETHFRSA@1600 02/20/23 02/20/23 History Patient History Medical History Depression DVT (deep venous thrombosis) HTN (hypertension) Hx of pulmonary embolus Hx of thyroid cancer Post-surgical hypothyroidism Surgical History H/O neck surgery H/O tubal ligation Hx of thyroidectomy with neck dissection for thyroid cancer Family History Father Heart disease Myocardial infarction first at age 48 Other Breast cancer Social History Smoking Status: Never smoker Do You Dip or Chew Tobacco: No; Hx Alcohol Use: No Hx Substance Use: No Preferred Language: Liberian Communication Ability: Effective 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 Required: No Beliefs That Will Affect Care: None marital status: Current Living Situation: Alone Other Information That Helps Us Care for You: No Feels Safe at Home: Yes Safety Concerns: Feels Safe At This Time Review of Systems Review of Systems: All systems reviewed & are unremarkable except as noted in HPI & below Physical Exam Constitutional: + obese; no acute distress Eyes: PERRL, conjunctivae normal, anicteric sclerae ENMT: external ear and nose normal, oropharynx normal Neck: trachea midline, no thyromegaly Respiratory: normal respiratory effort, lungs clear to auscultation Cardiovascular: Rate/Rhythm: + tachycardic and + irregularly irregular Heart Sounds: normal S1 and normal S2; no murmur Vessels: no JVD Extremities: no edema Gastrointestinal (Abdomen): normal bowel sounds, soft, nontender, no hepatosplenomegaly Musculoskeletal: no cyanosis or clubbing, extremities motor strength 5/5 Results & Data Vital Signs (Past 12 Hours) Vital Signs Temp Pulse Pulse Resp BP Pulse Ox O2 Del Method 02/21/23 07:44 36.9 C 112 H 20 112/77 90 Nasal Cannula 02/20/23 23:00 118 H 02/21/23 03:57 93 Nasal Cannula 02/21/23 03:30 36.4 C L 112 H 18 116/82 O2 Flow Rate 02/21/23 07:44 2 02/20/23 23:00 02/21/23 03:57 2 02/21/23 03:30 Laboratory Results Laboratory Results - last 24 hr 02/20/23 02/20/23 02/20/23 09:59 09:59 09:59 WBC 9.54 RBC 4.54 Hgb 13.1 Hct 39.0 MCV 85.9 MCH 28.9 MCHC 33.6 RDW Std Deviation 45.4 RDW Coeff of Torsten 14.4 Plt Count 242 MPV 10.5 Immature Gran % (Auto) 2.6 Neut % (Auto) 76.0 Lymph % (Auto) 13.2 Stafford % (Auto) 6.4 Eos % (Auto) 1.6 Baso % (Auto) 0.2 Neut # (Auto) 7.25 H Lymph # (Auto) 1.26 Stafford # (Auto) 0.61 H Eos # (Auto) 0.15 Baso # (Auto) 0.02 Immature Gran # (Auto) 0.25 H PT 28.7 H INR 2.8 H APTT 39.2 H PTT Ratio 1.4 Sodium 139 Potassium 3.1 L Chloride 101 Carbon Dioxide 27 Anion Gap 11 BUN 27 H Creatinine 1.01 Est Cr Clr Drug Dosing 73.1 Est GFR ( Amer) 67.2 Est GFR (Non-Af Amer) 58.0 BUN/Creatinine Ratio 26.7 H Glucose 104 H Calcium 8.7 Magnesium 1.8 Total Bilirubin 0.8 AST 123 H ALT 88 H Alkaline Phosphatase 109 H Troponin I High Sens 8.8 Total Protein 7.2 Albumin 3.8 Globulin 3.4 Albumin/Globulin Ratio 1.1 Procalcitonin TSH Lyme Disease IgG Ab Lyme Disease IgM Ab SARS-CoV-2, RNA, NAAT 02/20/23 02/20/23 02/20/23 09:59 09:59 09:59 WBC RBC Hgb Hct MCV MCH MCHC RDW Std Deviation RDW Coeff of Torsten Plt Count MPV Immature Gran % (Auto) Neut % (Auto) Lymph % (Auto) Stafford % (Auto) Eos % (Auto) Baso % (Auto) Neut # (Auto) Lymph # (Auto) Stafford # (Auto) Eos # (Auto) Baso # (Auto) Immature Gran # (Auto) PT INR APTT PTT Ratio Sodium Potassium Chloride Carbon Dioxide Anion Gap BUN Creatinine Est Cr Clr Drug Dosing Est GFR ( Amer) Est GFR (Non-Af Amer) BUN/Creatinine Ratio Glucose Calcium Magnesium Total Bilirubin AST ALT Alkaline Phosphatase Troponin I High Sens Total Protein Albumin Globulin Albumin/Globulin Ratio Procalcitonin 0.19 TSH 1.949 Lyme Disease IgG Ab Negative Lyme Disease IgM Ab Negative SARS-CoV-2, RNA, NAAT 02/20/23 02/21/23 02/21/23 Unknown 05:52 05:52 WBC 9.45 RBC 4.35 Hgb 12.5 Hct 37.7 MCV 86.7 MCH 28.7 MCHC 33.2 RDW Std Deviation 46.5 H RDW Coeff of Torsten 14.6 H Plt Count 167 MPV 11.0 Immature Gran % (Auto) Neut % (Auto) Lymph % (Auto) Stafford % (Auto) Eos % (Auto) Baso % (Auto) Neut # (Auto) Lymph # (Auto) Stafford # (Auto) Eos # (Auto) Baso # (Auto) Immature Gran # (Auto) PT 26.3 H INR 2.5 H APTT PTT Ratio Sodium Potassium Chloride Carbon Dioxide Anion Gap BUN Creatinine Est Cr Clr Drug Dosing Est GFR ( Amer) Est GFR (Non-Af Amer) BUN/Creatinine Ratio Glucose Calcium Magnesium Total Bilirubin AST ALT Alkaline Phosphatase Troponin I High Sens Total Protein Albumin Globulin Albumin/Globulin Ratio Procalcitonin TSH Lyme Disease IgG Ab Lyme Disease IgM Ab SARS-CoV-2, RNA, NAAT NEGATIVE 02/21/23 02/21/23 05:52 07:49 WBC RBC Hgb Hct MCV MCH MCHC RDW Std Deviation RDW Coeff of Torsten Plt Count MPV Immature Gran % (Auto) Neut % (Auto) Lymph % (Auto) Stafford % (Auto) Eos % (Auto) Baso % (Auto) Neut # (Auto) Lymph # (Auto) Stafford # (Auto) Eos # (Auto) Baso # (Auto) Immature Gran # (Auto) PT INR APTT PTT Ratio Sodium 135 L Potassium TNP 4.4 D Chloride 102 Carbon Dioxide 26 Anion Gap 7 BUN 25 H Creatinine 0.93 Est Cr Clr Drug Dosing 78.7 Est GFR ( Amer) 74.2 Est GFR (Non-Af Amer) 64.0 BUN/Creatinine Ratio 26.9 H Glucose 108 H Calcium 8.4 L Magnesium 2.3 Total Bilirubin 0.9 AST TNP 139 H ALT 98 H Alkaline Phosphatase 93 Troponin I High Sens Total Protein 6.5 Albumin 3.5 Globulin 3.0 Albumin/Globulin Ratio 1.2 Procalcitonin TSH Lyme Disease IgG Ab Lyme Disease IgM Ab SARS-CoV-2, RNA, NAAT
--- NOTE | 2023-02-21 10:45 | Cardioversion ---
Date of Service February 21, 2023 Electrical Cardioversion Rpt Electrical Cardioversion Report Patient was seen and examined, chart reviewed. Procedure risk and benefits of synchronize electrical cardioversion explained in detail. Informed consent was obtained. Formal TIMEOUT ws performed Patient was sedated via anesthesia consult with O2 HR BP and endtidal CO2 monitoring. Synchronized biphasic 150J shock administered with successful conversion to sinus rhythm. Patient aroused having tolerated well EKG: NSR at 65 bpm, low voltage QRS '
--- NOTE | 2023-02-21 11:11 | Anesthesiology Progress Note ---
Date of Service February 21, 2023 Anesthesia Post Procedure Vital Signs Vital Signs: Temp Pulse Pulse Resp BP Pulse Ox O2 Del Method 02/21/23 10:58 78 18 105/73 93 Oxymask 02/21/23 10:43 69 18 88/67 L 93 Oxymask 02/21/23 10:23 125 H 18 106/90 95 Oxymask 02/21/23 07:44 98.4 F 112 H 20 112/77 90 Nasal Cannula 02/20/23 23:00 118 H 02/21/23 03:57 93 Nasal Cannula 02/21/23 03:30 97.5 F L 112 H 18 116/82 02/20/23 19:00 Room Air 02/20/23 19:39 97.9 F 109 H 18 115/78 91 Room Air 02/20/23 17:00 146 H 02/20/23 16:38 124 H 02/20/23 16:00 97.9 F 131 H 16 134/87 94 Room Air 02/20/23 14:00 119 H 19 93 02/20/23 13:31 131 H 22 113/89 93 Room Air 02/20/23 11:46 154 H 18 119/98 94 O2 Flow Rate 02/21/23 10:58 12 02/21/23 10:43 12 02/21/23 10:23 8 02/21/23 07:44 2 02/20/23 23:00 02/21/23 03:57 2 02/21/23 03:30 02/20/23 19:00 02/20/23 19:39 02/20/23 17:00 02/20/23 16:38 02/20/23 16:00 02/20/23 14:00 02/20/23 13:31 02/20/23 11:46 Transfer of Care Handoff Completed per policy Notes Mental Status: alert / awake / arousable and participated in evaluation Patient Amnestic to Procedure: Yes Nausea / Vomiting: adequately controlled Pain: adequately controlled Airway Patency, RR, SpO2: stable & adequate BP & HR: stable & adequate Hydration State: stable & adequate Anesthetic Complications: no major complications apparent and Pt Satisfied with anesthetic care
[2023-02-21] MEDS: dilTIAZem HCL 125 MG in DEXTROSE 5% 100 ML IV SCH (11:18)
--- NOTE | 2023-02-21 12:10 | Communication Note ---
Date of Service: February 21, 2023 Patient referred and underwent synchronized electrical cardioversion earlier today for new onset atrial fibrillation with difficult to control heart rate. P atient with successful conversion to sinus rhythm with single 150 J shock Impression: New onset atrial fibrillation with successful conversion to sinus rhythm. History of hypertension I suspect diastolic LV dysfunction Plan: Reduce amlodipine to 5 mg/day Add metoprolol succinate 25 mg daily Continue anticoagulation with warfarin Given low voltage on EKG question secondary to infiltrative process versus body habitus we will order serum immunofixation Would resume HCTZ 25 mg twice per day as per outpatient. May need higher dose/alternative diuretic post discharge Add potassium chloride 10 mill equivalent per day We will arrange for cardiology appointment 4 to 6-week Consider sleep study as outpatient
[2023-02-21] MEDS ORDERED: hydroCHLOROthiazide 25 MG TAB PO SCH (12:15)
--- NOTE | 2023-02-21 13:02 | Hospitalist Progress Note ---
Date of Service February 21, 2023 Assessment & Plan (1) Atrial fibrillation with rapid ventricular response: (2) Acute hypokalemia: (3) HTN (hypertension): (4) Post-surgical hypothyroidism: (5) Chronic cough: Plan This is a 67-year-old female who has significant past medical history of HTN, hypothyroidism, CKD stage III, history of PE on long-term anticoagulation with warfarin and history of thyroid cancer who presents to ED secondary to referral from PCP 2/2 Afib. A-fib with RVR, new onset Admit to medical Continue diltiazem drip Initiate metoprolol tartrate 25 mg twice daily, first dose now Obtain echocardiogram-short atrial fibrillation with elevated ventricular rate, LV normal in size with mild concentric LVH, LV wall motion is normal, EF 55 to 60%, left atrium is moderately dilated with mild mitral annular calcification, mild MR and mild TR INR therapeutic in setting of history of PE, [id number] 3 We will make n.p.o. after midnight in event procedure warranted Appreciate cardiology input and recommendation Status post cardioversion with reversion to normal sinus rhythm Maintained on beta-joan Can be discharged home this afternoon if stable Patient with chronic cough x6 months, chest x-ray showing atelectasis versus pneumonitis Obtain procalcitonin and chest CT without contrast as respiratory component could be possible because of A-fib CT of this chest showed tiny 4 mm nodule in the right upper lobe A 12-month follow-up CT meds can be done for further evaluation of the nodule Hypokalemia received 40meq KCL in ED along with 10meq K rider will give additional 40meq KCL at 1600 replete mag as well to keep > 2 Potassium level has been normalized to 4.4 Hypertension BP normal, hold amlodipine and HCTZ for now unless patient becomes hypertensive while on diltiazem drip and titrating metoprolol tartrate Postsurgical hypothyroidism Continue levothyroxine, TSH normal Chronic cough Patient's been following Rcahel hillman Recently had PET scan which was unremarkable showing no change in uptake of pulmonary nodules but did show new incidental finding of rib fracture Chest x-ray concerning for atelectasis versus pneumonitis Obtain procalcitonin and chest CT Encourage incentive spirometry 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 consider OP US DVT prophylaxis: Continue warfarin Full code PCP: Nazario Dispo: PCU for heart rate management Will be discharged home this afternoon Admission and Anticipated Discharge Date Admission Date: February 20, 2023 Subjective 02/21/2023 The patient was seen and examined in telemetry unit He is a status post cardioversion and maintaining sinus rhythm at 59/min Denies any symptoms If she has been feeling well following the cardioversion she will be discharged home this afternoon Review of Systems Review of Systems: All systems reviewed and are unremarkable except as noted below Physical Exam Physical Exam: Lying in bed comfortably Constitutional: well developed, well nourished and + obese; not ill appearing Eyes: PERRL, conjunctivae normal, anicteric sclerae ENMT: external ear and nose normal, oropharynx normal Neck: trachea midline, no thyromegaly Respiratory: no respiratory distress Auscultation: lungs clear to auscultation bilaterally Cardiovascular: Rate/Rhythm: regular rate and regular rhythm; not tachycardic Heart Sounds: normal S1 and normal S2; no murmur Extremities: no edema Gastrointestinal (Abdomen): Inspection/Auscultation: normal bowel sounds; abdomen not distended Percussion/Palpation: abdomen soft; abdomen nontender Musculoskeletal: No acute arthritis involving any joint Neurologic: normal touch/pain/proprioception and moves all extremities; no focal motor deficits Psychiatric: A+Ox3, euthymic affect Lymphatic: no cervical or axillary lymphadenopathy Results & Data Results & Data Vital Signs (Past 12 Hours) Vital Signs Temp Pulse Resp BP Pulse Ox O2 Del Method O2 Flow Rate 02/21/23 08:00 Nasal Cannula 2 02/21/23 11:20 36.5 C 59 L 18 98/60 L 90 Nasal Cannula 3 02/21/23 10:58 78 18 105/73 93 Oxymask 12 02/21/23 10:43 69 18 88/67 L 93 Oxymask 12 02/21/23 10:23 125 H 18 106/90 95 Oxymask 8 02/21/23 07:44 36.9 C 112 H 20 112/77 90 Nasal Cannula 2 02/21/23 03:57 93 Nasal Cannula 2 02/21/23 03:30 36.4 C L 112 H 18 116/82 Laboratory Results Short CBC 02/21/23 Range/Units 05:52 WBC 9.45 (4.8-10.8) K/ul Hgb 12.5 (12.0-16.0) g/dl Hct 37.7 (37.0-47.0) % Plt Count 167 (130-400) K/uL BMP 02/21/23 02/21/23 05:52 07:49 Sodium 135 L Potassium TNP 4.4 D Chloride 102 Carbon Dioxide 26 BUN 25 H Creatinine 0.93 Glucose 108 H Calcium 8.4 L Liver Function 02/21/23 02/21/23 Range/Units 05:52 07:49 Total Bilirubin 0.9 (0.2-1.0) mg/dl AST TNP 139 H ALT 98 H (7-52) U/L Alkaline Phosphatase 93 (34-104) U/L Albumin 3.5 (3.4-5.0) gm/dl Medications Administered Current Inpatient Medications Acetaminophen (Acetaminophen 325 Mg Tab) 650 mg PO Q4H PRN PRN Reason: Pain or Fever Stop: 03/22/23 15:56 Last Admin: 02/20/23 17:24 Dose: 650 mg Al Hydrox/Mg Hydrox/Simethicone (Aluminum/Magnesium Susp 30 Ml Udc) 15 ml PO Q4H PRN PRN Reason: Dyspepsia Stop: 03/22/23 15:56 Amlodipine Besylate (Amlodipine Besylate 5 Mg Tab) 5 mg PO [facility] Stop: 03/24/23 08:59 Hydrochlorothiazide (Hydrochlorothiazide 25 Mg Tab) 25 mg PO BID [facility] Stop: 03/23/23 12:14 Last Admin: 02/21/23 12:51 Dose: 25 mg Levothyroxine Sodium (Levothyroxine Sodium 175 Mcg Tablet) 175 mcg PO DAILY@629 [facility] Stop: 03/23/23 06:29 Last Admin: 02/21/23 05:30 Dose: 175 mcg Magnesium Hydroxide (Magnesium Hydroxide Susp 30 Ml Udc) 30 ml PO Q12H PRN PRN Reason: Constipation Stop: 03/22/23 15:56 Metoprolol Succinate (Metoprolol Succ 25mg Ext Rel Tab) [facility] Stop: 03/24/23 08:59 Ondansetron HCl (Ondansetron Inj 2 Mg/Ml 2 Ml Vial) 4 mg IV Q6H PRN PRN Reason: Nausea Stop: 03/22/23 15:56 Last Admin: 02/21/23 03:50 Dose: 4 mg Oxycodone HCl (Oxycodone Hcl Ir 5 Mg Tab (Immediate Release)) 5 - 10 mg PO QID PRN PRN Reason: Pain Stop: 03/06/23 23:16 Last Admin: 02/20/23 23:33 Dose: 10 mg Pantoprazole Sodium (Pantoprazole 40 Mg Tab) 40 mg PO DAILY [facility] Stop: 03/23/23 08:59 Last Admin: 02/21/23 08:18 Dose: 40 mg Polyethylene Glycol (Polyethylene (Miralax) 17 Gm Pack) 17 gm PO DAILY PRN PRN Reason: Constipation Stop: 03/22/23 15:56 Potassium Chloride (Potassium Chloride 10 Meq Tabcr) 10 meq PO DAILY [facility] Stop: 03/24/23 08:59 Vitamin D (Cholecalciferol 400 Units 10 Mcg Tab) 400 units PO DAILY [facility] Stop: 03/23/23 08:59 Last Admin: 02/21/23 08:18 Dose: 400 units Warfarin Sodium (Warfarin Sod 5 Mg Tab) 5 mg PO MO@1600 [facility] Stop: 03/28/23 15:59 Warfarin Sodium (Warfarin Sod 10 Mg Tab) 10 mg PO SUTUWETHFRSA@1600 [facility] Stop: 03/22/23 15:59 Last Admin: 02/20/23 17:22 Dose: 10 mg
--- NOTE | 2023-02-21 16:25 | Discharge Summary ---
Date of Service February 21, 2023 Admission HPI Per Admitting Provider This is a 67-year-old female who has significant past medical history of HTN, hypothyroidism, CKD stage III, history of PE on long-term anticoagulation with warfarin and history of thyroid cancer who presents to ED secondary to referral from PCP 2/2 Afib. Pt was seen in outpatient clinic today where outpatient EKG revealed afib with RVR. Her smart watch has been alerting her of elevated heart rates for the past few days. She states she saw provider today initally due to R sided neck and shoulder pain that started two days ago. She has tried tylenol with some relief. Pain is not related to movement and nothing seems to make worse. She has never has similar pain in the past. Denies any numbness or tingling or radiating pain to R arm. She also reports her Iwatch telling her that her HR was high in the 150s. In clinic EKG revealed afib with RVR so she was referred here. No prior hx of afib or cad. Denies CP, sob, dizziness, lightheaded, n/v/d, abd pain, change in bowel or urinary habits. Continues to have chronic dry cough. Also has R anterior chest/rib discomfort from broken ribs. Of significance patient has recently been following with pulmonology due to persistent cough. She has been prescribed Flonase and omeprazole without improvement in symptoms and her lisinopril has also been discontinued. She recently had a PET scan due to prior history of thyroid cancer which showed incidental finding of right-sided rib fractures and otherwise was negative except for stable pulm nodules. CT scan chest also showed right hilar lymph nodes unchanged, 1 right upper lobe nodule and 2 subcentimeter parenchymal nodules in the left lower lobe with low likelihood of malignancy. Tessalon Perles were added along with lidocaine patch for right-sided rib discomfort. She also was treated with a 2-week course of Augmentin antibiotic therapy due to recurrent bronchitis. Subsequently patient developed rash for which she saw dermatology on 02/15. She was prescribed a short course of prednisone at this appointment which was to finish today but she discontinued and antibiotic was d/c at that time. Admission Exam Per Admitting Provider hysical Exam: Constitutional: WD/WN, vitals as above, NAD, sitting up in bed, pleasant, conversing easily Head: Normocephalic, Atraumatic Eyes: PERRL, conjunctivae normal, anicteric sclerae ENMT: external ear and nose normal, oropharynx normal Neck: trachea midline, no thyromegaly normal visual inspection Respiratory: normal respiratory effort, lungs clear to auscultation, no wheeze, rales, rhonchi. Normal insp/exp effort, no accessory muscle use Cardiovascular: IRR/IRR, no murmur, b/l obese lower ext, no meenakshi edema, b/l varicosities Vessels: no JVD or carotid bruit Chest: normal inspection of chest Abdomen: normal bowel sounds, soft, nontender, no hepatosplenomegaly Musculoskeletal: no cyanosis or clubbing, extremities motor strength 5/5 Skin: no rashes, warm and dry normal turgor Neurologic: PERRL, EOMI, accommodation nl, no face palsy, no dysarthria CN's II-XI intact bilaterally and moves all extremities Psychiatric: A+Ox3, euthymic affect Lymphatic: no cervical or axillary lymphadenopathy : deferred Principal Diagnosis A-fib with RVR status post successful cardioversion Discharge Exam Lying in bed comfortably Constitutional well developed, well nourished and + obese; not ill appearing Eyes PERRL, conjunctivae normal, anicteric sclerae ENMT external ear and nose normal, oropharynx normal Neck trachea midline, no thyromegaly Respiratory no respiratory distress Auscultation: lungs clear to auscultation bilaterally Cardiovascular Rate/Rhythm: regular rate and regular rhythm; not tachycardic Heart Sounds: normal S1 and normal S2; no murmur Extremities: no edema Gastrointestinal (Abdomen) Inspection/Auscultation: normal bowel sounds; abdomen not distended Percussion/Palpation: abdomen soft; abdomen nontender Neurologic normal touch/pain/proprioception and moves all extremities; no focal motor deficits Psychiatric A+Ox3, euthymic affect Lymphatic no cervical or axillary lymphadenopathy Discharge Data Allergies Allergy/AdvReac Type Severity Reaction Status Date / Time No Known Allergies Allergy Unknown 0 Verified 02/20/23 12:02 Consultations 02/20/23 11:57 ED Decision to Admit Stat 02/20/23 12:16 Consult Cardiology Routine Procedures Performed Operation Date: 02/21/23 12:00 Actual Procedures p Cardioversion - King Pathak MD Ordered Studies 02/20/23 12:56 CT chest diagnostic wo con Routine 02/20/23 15:45 US GB [US gallbladder] Urgent 02/20/23 23:17 CT cervical spine wo con Stat CT head/brain wo con Stat Hospital Course (1) Atrial fibrillation with rapid ventricular response: (2) Acute hypokalemia: (3) HTN (hypertension): (4) Post-surgical hypothyroidism: (5) Chronic cough: Plan This is a 67-year-old female who has significant past medical history of HTN, hypothyroidism, CKD stage III, history of PE on long-term anticoagulation with warfarin and history of thyroid cancer who presents to ED secondary to referral from PCP 2/2 Afib. A-fib with RVR, new onset Admit to medical Continue diltiazem drip Initiate metoprolol tartrate 25 mg twice daily, first dose now Obtain echocardiogram-short atrial fibrillation with elevated ventricular rate, LV normal in size with mild concentric LVH, LV wall motion is normal, EF 55 to 60%, left atrium is moderately dilated with mild mitral annular calcification, mild MR and mild TR INR therapeutic in setting of history of PE, [id number] 3 We will make n.p.o. after midnight in event procedure warranted Appreciate cardiology input and recommendation Status post cardioversion with reversion to normal sinus rhythm Maintained on beta-joan Can be discharged home this afternoon if stable Patient with chronic cough x6 months, chest x-ray showing atelectasis versus pneumonitis Obtain procalcitonin and chest CT without contrast as respiratory component could be possible because of A-fib CT of this chest showed tiny 4 mm nodule in the right upper lobe A 12-month follow-up CT meds can be done for further evaluation of the nodule Hypokalemia received 40meq KCL in ED along with 10meq K rider will give additional 40meq KCL at 1600 replete mag as well to keep > 2 Potassium level has been normalized to 4.4 Hypertension BP normal, hold amlodipine and HCTZ for now unless patient becomes hypertensive while on diltiazem drip and titrating metoprolol tartrate Postsurgical hypothyroidism Continue levothyroxine, TSH normal Chronic cough Patient's been following Rachel lopez Recently had PET scan which was unremarkable showing no change in uptake of pulmonary nodules but did show new incidental finding of rib fracture Chest x-ray concerning for atelectasis versus pneumonitis Obtain procalcitonin and chest CT Encourage incentive spirometry 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 consider OP US DVT prophylaxis: Continue warfarin Full code PCP: Nazario Dispo: PCU for heart rate management Will be discharged home this afternoon Total Time Total Time Spent Total Time Spent (In Minutes): 35 minutes Discharge Plan Discharge Items Patient Disposition: Home - Self-Care Reason For Visit: AFIB RVR Discharge Diagnosis: A-fib with RVR status post successful cardioversion Condition on Discharge: Good Activity: Resume your previous activity Non-emergency contact: Primary Care Provider Call non-emergency contact if: you have any medication questions and your symptoms worsen Follow-up/Referrals: Campos Lange MD [Primary Care Provider] - (Your doctor's office will give you a call tomorrow with an appointment within 7 days) Diet: Heart Healthy Addtl Attending Provider Instructions: Please take precautions to avoid fall Take your medications as advised Please give appointment with your healthcare providers Pending Studies at Discharge: No Stand-Alone Forms: My [employer], Smoking Cessation Medications and DC Order Prescriptions: New amlodipine [Norvasc] 5 mg Tablet 5 mg PO QAM 30 Days Qty: 30 0RF metoprolol succinate 25 mg Tablet Extended Release 24 Hr 25 mg PO QAM 30 Days Qty: 30 0RF potassium chloride 10 mEq Tablet,Er Particles/Crystals 10 meq PO DAILY 30 Days Qty: 30 0RF Continued levothyroxine 175 mcg tablet 175 mcg PO DAILY@0630 warfarin 10 mg tablet 10 mg PO SUTUWETHFRSA@1600 warfarin 10 mg tablet 5 mg PO MO@1600 omeprazole 20 mg capsule,delayed release(DR/EC) 20 mg PO DAILY hydrochlorothiazide 25 mg tablet 25 mg PO BID fluticasone propionate 50 mcg/actuation spray,suspension 50 mcg INTRANASAL DAILY cholecalciferol (vitamin D3) [Vitamin D3] 10 mcg (400 unit) Tablet 10 mcg PO DAILY Discontinued amlodipine 10 mg tablet 10 mg PO DAILY Discharge Orders: Discharge Order (Routine); Ordered 02/21/23 Ordered By: Rohan Smallwood Admission Data Admit Date/Time: 02/20/23 12:16 Attending Provider: Rohan Smallwood Admit Provider: Rohan Smallwood Primary Care Provider: Campos Lange Other Providers: King Pathak ; Rohan Smallwood
[2023-02-21] MEDS: WARFARIN SOD 10 MG TAB PO SCH (16:45)
--- NOTE | 2023-02-22 05:46 | Electrocardiogram Report ---
Test Reason : Blood Pressure : / mmHG Vent. Rate : 165 BPM Atrial Rate : 000 BPM P-R Int : 000 ms QRS Dur : 084 ms QT Int : 290 ms P-R-T Axes : 000 052 148 degrees QTc Int : 480 ms Atrial fibrillation with rapid ventricular response Low voltage QRS Nonspecific ST and T wave abnormality Abnormal ECG No previous ECGs available Confirmed by Jimbo Das ([id number]) on 02/22/2023 5:46:24 AM Referred By: REFERRED SELF Confirmed By:Jimbo Das
[2023-02-22] MEDS ORDERED: POTASSIUM CHLORIDE 10 MEQ TABCR PO SCH (09:00)
[2023-02-22] MEDS ORDERED: amLODIPine BESYLATE 5 MG TAB PO SCH (09:00)
[2023-02-22] MEDS ORDERED: METOPROLOL SUCC 25MG EXT REL TAB PO SCH (09:00)
--- NOTE | 2023-02-23 05:31 | Electrocardiogram Report ---
Test Reason : Blood Pressure : / mmHG Vent. Rate : 119 BPM Atrial Rate : 131 BPM P-R Int : 000 ms QRS Dur : 086 ms QT Int : 322 ms P-R-T Axes : 000 054 075 degrees QTc Int : 452 ms Atrial fibrillation with rapid ventricular response Low voltage QRS Abnormal ECG When compared with ECG of 20-FEB-2023 09:52, Nonspecific T wave abnormality no longer evident in Inferior leads Confirmed by Jimbo Das ([id number]) on 02/23/2023 5:31:20 AM Referred By: REFERRED SELF Confirmed By:Jimbo Das
--- NOTE | 2023-02-23 05:48 | Electrocardiogram Report ---
Test Reason : Blood Pressure : / mmHG Vent. Rate : 065 BPM Atrial Rate : 065 BPM P-R Int : 174 ms QRS Dur : 088 ms QT Int : 452 ms P-R-T Axes : 025 034 030 degrees QTc Int : 470 ms Normal sinus rhythm Low voltage QRS Borderline ECG When compared with ECG of 20-FEB-2023 09:52, Sinus rhythm has replaced Atrial fibrillation Vent. rate has decreased BY 100 BPM Confirmed by Jimbo Das ([id number]) on 02/23/2023 5:48:36 AM Referred By: REFERRED SELF Confirmed By:Jimbo Das
[2023-02-26] MEDS ORDERED: WARFARIN SOD 5 MG TAB PO SCH (16:00)
== END 2023-02-21 18:15 | disposition home or self-care (01) | DRG 310 ==
LOC: ED 09:34 → 4W 12:16

== ENCOUNTER 2024-04-10 18:19 | Inpatient (IN) ==
[2024-04-10] MEDS: LIDOCAINE 1%/EPINEPHRINE 1:100,000 50 ML VIAL INFIL ONE (18:57)
[2024-04-10] MEDS: LIDOCAINE 1%/EPINEPHRINE 1:100,000 50 ML VIAL ONE (18:57)
[2024-04-10 19:35] LABS: Basophils # (auto) 0.03 K/uL (0.00-0.20); Basophils % (auto) 0.4 %; Eosinophils # (auto) 0.12 K/uL (0.00-0.50); Eosinophils % (auto) 1.7 %; Hematocrit (blood only) 42.9 % (37.0-47.0); Hemoglobin 13.8 g/dl (12.0-16.0); Immature Granulocytes # (auto) 0.03 K/uL (0.01-0.20); Immature Granulocytes % (auto) 0.4 %; Lymphocytes # (auto) 1.26 K/uL (1.20-3.40); Lymphocytes % (auto) 17.8 %; Mean Corpuscular Hemoglobin 27.9 pg (25.0-34.0); Mean Corpuscular Hgb Conc 32.2 g/dL (32.0-36.0); Mean Corpuscular Volume 86.8 fL (80.0-100.0); Mean Platelet Volume 10.2 fL (9.4-12.4); Monocytes # (auto) 0.45 K/uL (0.11-0.59); Monocytes % (auto) 6.4 %; Neutrophils # (auto) 5.18 K/uL (1.40-6.50); Neutrophils % (auto) 73.3 %; Platelet Count 155 K/uL (130-400); RDW Standard Deviation 47.9 fL (36.4-46.3); Red Blood Count 4.94 M/uL (4.20-5.40); White Blood Count 7.07 K/ul (4.8-10.8)
--- NOTE | 2024-04-10 20:07 | Emergency Department Note ---
Impression & Plan Elevated INR ED Provider Note NAME: MATY ZAPATA AGE: 68 SEX: F : 1955 ARRIVES VIA: Walk-In INFORMANT: Patient, ED PROVIDER(S): Bin George MD CHIEF COMPLAINT: Laceration to right ankle HPI: This is a 68-year-old female presenting for laceration to right ankle. Patient is on warfarin for atrial fibrillation. Patient notes that she was in a pool and when she got out she think she had her right ankle. No bleeding that was profuse in this area. Pressure applied however this did not stop so they came to the ER. Patient notes no significant injury or fall. Able to walk on it without difficulty, last check of INR was over 6 weeks ago. ROS: See above HPI for pertinent positives & negatives. A total of 10 systems reviewed and were otherwise negative. PHYSICAL EXAMINATION: General: resting comfortably in no acute distress Head: Normocephalic and atraumatic Eyes: Normal inspection, extraocular muscles intact Ear, nose, throat: Normal external exam Neck: Normal range of motion Respiratory: lungs clear to auscultation bilaterally Cardiovascular: Regular rate/rhythm, no murmur GI: soft, nontender, no guarding or rebound Extremities: nontender, moves all extremities, extensive varicose veins, right ankle shows pinpoint area of venous bleeding laterally Neuro: The patient awake and alert, appropriately conversive, no focal deficits, symmetric faces Skin: Warm, dry, and intact MEDICAL DECISION MAKING: This is a 58-year-old female presenting for right ankle laceration. Patient has a pinpoint area of venous bleeding. No pulsatile nature of this. Will do [id number] stitch. Patient requests lidocaine prior to suture. -1% lidocaine with epinephrine was injected for analgesia -1 [id number] stitch was placed in the area of bleeding with immediate cessation of bleeding -4-O Ethilon was used -Patient's INR comes back at over 9.5 -Will give patient oral vitamin K and discussed for discharge -Discussed case with patient, she feels uncomfortable being sent home as she may fall with his unclear INR significant elevated. -Patient will be admitted to [facility] service for inpatient observation Differential diagnosis: Elevated INR, venous bleed, arterial bleed ER treatment provided: See below Diagnostics interpreted by me: ECG: None Cardiac Monitoring: An order was placed for continuous cardiac monitoring. The monitor shows a rate of 68 with sinus rhythm. Laboratory studies: As stated above and show below. Imaging studies: See below. Past Med/Surg History Problem List (Updated 04/12/24 @ 00:49 by Bin George MD) Elevated INR (Acute) Coagulopathy Acute hypokalemia (Acute) Encounter for pre-operative examination Chronic cough Atrial fibrillation with rapid ventricular response (Acute) follows w/ [facility] cardio Post-surgical hypothyroidism HTN (hypertension) (Chronic) Medical History (Updated 04/12/24 @ 00:49 by Bin George MD) CKD (chronic kidney disease) stage 3, GFR 30-59 ml/min Hilar adenopathy Upper airway cough syndrome Oropharyngeal dysphagia Anxiety situational Hx of deep venous thrombosis right calf; 40 yrs ago Hypothyroidism On anticoagulant therapy warfarin daily History of cardioversion 02/21/2023 Depression Hx of pulmonary embolus 40 yrs ago- takes warfarin daily Hx of thyroid cancer hx radiation- 2008 Surgical History Hx of thyroidectomy with neck dissection for thyroid cancer H/O neck surgery X3 total, related to thyroid cancer H/O tubal ligation Family History Father Heart disease Myocardial infarction first at age 48 Other Breast cancer Social History Smoking Status: Never smoker Second Hand Exposure: No; Do You Dip or Chew Tobacco: No; Hx Alcohol Use: No Hx Substance Use: No Preferred Language: Maldivian Communication Ability: Effective [employer] Faculty Assistant Required: No Beliefs That Will Affect Care: None marital status: Current Living Situation: Alone Other Information That Helps Us Care for You: No Feels Safe at Home: Yes Assistive Devices: None Allergies Allergies Allergy/AdvReac Type Severity Reaction Status Date / Time No Known Allergies Allergy Unknown 0 Verified 04/10/24 21:01 Home Meds Home Medications Medication Instructions Recorded Confirmed cholecalciferol (vitamin D3) 10 10 mcg PO QAM 02/20/23 04/10/24 mcg (400 unit) tablet (Vitamin D3) fluticasone propionate 50 50 mcg intranasal BID 02/20/23 04/10/24 mcg/actuation nasal spray,suspension levothyroxine 175 mcg tablet 175 mcg PO DAILYBB 02/20/23 04/10/24 omeprazole 20 mg capsule,delayed 20 mg PO DAILY 02/20/23 04/10/24 release warfarin 10 mg tablet See Rx Instructions .Route .COMPLEX 02/20/23 04/10/24 amiodarone 200 mg tablet 200 mg PO QAM 03/13/23 04/10/24 cetirizine 10 mg tablet (Zyrtec) 10 mg PO DAILY PRN Cough 03/13/23 04/10/24 furosemide 40 mg tablet 40 mg PO BID PRN SWELLING 03/13/23 04/10/24 amlodipine 5 mg tablet 5 mg PO QAM 04/10/24 04/10/24 montelukast 10 mg tablet 10 mg PO HS 04/10/24 04/10/24 Results & Data (ED) Vital Signs Vital Signs - 24 hr 04/10/24 18:25 Temperature 36.8 C Temperature Source Temporal Artery Scan Pulse Rate 75 Respiratory Rate 19 Respiratory Effort / Characteristics Non-Labored Spontaneous Respiratory Depth Normal Respiratory Pattern Regular Blood Pressure 167/97 H Blood Pressure Mean 120 Pulse Oximetry 94 Oxygen Delivery Method Room Air Sepsis Recent Fever Within 48 Hours No Sepsis New/Unexplained Change in Mental Status N/A Sepsis Action Taken by Nursing No Action Required Laboratory Data 04/11/24 07:17 04/11/24 07:17 Lab Results 04/10/24 Range/Units 19:18 WBC 7.07 (4.8-10.8) K/ul RBC 4.94 (4.20-5.40) M/uL Hgb 13.8 (12.0-16.0) g/dl Hct 42.9 (37.0-47.0) % MCV 86.8 (80.0-100.0) fL MCH 27.9 (25.0-34.0) pg MCHC 32.2 (32.0-36.0) g/dL RDW Std Deviation 47.9 H (36.4-46.3) fL RDW Coeff of Torsten 15.0 H (11.5-14.5) % Plt Count 155 (130-400) K/uL MPV 10.2 (9.4-12.4) fL Immature Gran % (Auto) 0.4 % Neut % (Auto) 73.3 % Lymph % (Auto) 17.8 % [place] % (Auto) 6.4 % Eos % (Auto) 1.7 % Baso % (Auto) 0.4 % Neut # (Auto) 5.18 (1.40-6.50) K/uL Lymph # (Auto) 1.26 (1.20-3.40) K/uL [place] # (Auto) 0.45 (0.11-0.59) K/uL Eos # (Auto) 0.12 (0.00-0.50) K/uL Baso # (Auto) 0.03 (0.00-0.20) K/uL Immature Gran # (Auto) 0.03 (0.01-0.20) K/uL PT > 90.0 H (9.0-12.0) Seconds INR > 9.5 H* (0.9-1.1) Sodium 142 (136-145) mmol/L Potassium 4.3 (3.5-5.1) mmol/L Chloride 104 (98-107) mmol/L Carbon Dioxide 31 (21-32) mmol/L Anion Gap 7 (3-11) BUN 19 (6-23) mg/dl Creatinine 1.29 H (0.6-1.2) mg/dl Est Cr Clr Drug Dosing Not Reportable Est GFR ( Amer) 49.6 ml/min Est GFR (Non-Af Amer) 42.8 ml/min BUN/Creatinine Ratio 14.7 (10-20) Glucose 107 H (70-99(Fasting)) mg/dl Calcium 9.6 (8.6-10.3) mg/dl Total Bilirubin 0.8 (0.2-1.0) mg/dl AST 45 H (13-39) U/L ALT 26 (7-52) U/L Alkaline Phosphatase 101 (34-104) U/L Total Protein 7.4 (6.0-8.3) gm/dl Albumin 4.2 (3.4-5.0) gm/dl Globulin 3.2 (2.5-4.0) gm/dl Albumin/Globulin Ratio 1.3 (0.9-2) TSH 5.977 H (0.300-4.500) uIu/ml Free T4 1.18 (0.61-1.60) ng/dl Administered Medications Amiodarone HCl (Amiodarone 200 Mg Tab) 200 mg PO QAM [facility] Stop: 05/11/24 08:59 Last Admin: 04/11/24 08:12 Dose: 200 mg Documented By: ADY Amlodipine Besylate (Amlodipine Besylate 5 Mg Tab) 5 mg PO QAM [facility] Stop: 05/11/24 08:59 Last Admin: 04/11/24 08:12 Dose: 5 mg Documented By: ADY Fluticasone Propionate (Fluticasone Propionate Na Spr 16 Gm Btl) 1 sprays NA BID JOSE RAMON Stop: 05/11/24 08:59 Last Admin: 04/11/24 21:20 Dose: 1 sprays Documented By: Admin: 04/11/24 08:12 Dose: 1 sprays Documented By: ADY Levothyroxine Sodium (Levothyroxine Sodium 175 Mcg Tablet) 175 mcg PO DAILYBB JOSE RAMON Stop: 05/11/24 06:29 Last Admin: 04/11/24 05:56 Dose: 175 mcg Documented By: ARSLAN Montelukast Sodium (Montelukast Sodium 10 Mg Tablet) 10 mg PO HS JOSE RAMON Stop: 05/11/24 20:59 Last Admin: 04/11/24 21:20 Dose: 10 mg Documented By: LAN Pantoprazole Sodium (Pantoprazole 40 Mg Tab) 40 mg PO DAILY JOSE RAMON Stop: 05/11/24 08:59 Last Admin: 04/11/24 08:12 Dose: 40 mg Documented By: ADY Discontinued Medications Sodium Chloride (1/2 Nss) 1,000 mls @ 80 mls/hr IV .[id number] STA Stop: 04/11/24 11:27 Last Infusion: 04/11/24 12:50 Dose: Infused Documented By: Admin: 04/11/24 00:44 Dose: 80 mls/hr Documented By: SARAH Phytonadione 2.5 mg/ Dextrose 50.25 mls @ 100.5 mls/hr IV ONE ONE Stop: 04/11/24 08:59 Last Infusion: 04/11/24 09:51 Dose: Infused Documented By: Admin: 04/11/24 09:18 Dose: 100.5 mls/hr Documented By: ADY Lidocaine/Epinephrine (Lidocaine 1%/Epinephrine 1:100,000 50 Ml Vial) 2 ml INFIL NOW ONE Stop: 04/10/24 18:46 Last Admin: 04/10/24 18:57 Dose: 2 ml Documented By: [id number] Lidocaine/Epinephrine (Lidocaine 1%/Epinephrine 1:100,000 50 Ml Vial) Confirm Administered Dose 1 ml .ROUTE .STK-MED ONE Stop: 04/10/24 18:46 Last Admin: 04/10/24 18:57 Dose: Not Given Documented By: SARAH(2) Phytonadione (Phytonadione 5 Mg Tab) 5 mg PO NOW STA Stop: 04/10/24 21:03 Last Admin: 04/10/24 21:19 Dose: 5 mg Documented By: SARINA Discharge Plan Visit Data Chief Complaint: Bleeding Stated Complaint: RT ANKLE BLEEDING ED Provider: Bin George Discharge Problem: Elevated INR Patient Disposition: Admitted As Inpatient Discharge Instructions Interventions: ED Discharge Assessment Last Done: 04/11/24 01:56
[2024-04-10 20:20] LABS: Prothrombin Time > 90.0 Seconds (9.0-12.0)
[2024-04-10 20:43] LABS: INR > 9.5 (0.9-1.1)
[2024-04-10] MEDS: PHYTONADIONE 5 MG TAB PO STA (21:19)
[2024-04-10 22:51] LABS: Alanine Aminotransferase 26 U/L (7-52); Albumin Globulin Ratio 1.3 (0.9-2); Albumin Level 4.2 gm/dl (3.4-5.0); Alkaline Phosphatase 101 U/L (34-104); Anion Gap 7 (3-11); Aspartate Aminotransferase 45 U/L (13-39); BUN Creatinine Ratio 14.7 (10-20); Bilirubin,Total 0.8 mg/dl (0.2-1.0); Blood Urea Nitrogen 19 mg/dl (6-23); Calcium 9.6 mg/dl (8.6-10.3); Carbon Dioxide 31 mmol/L (21-32); Chloride 104 mmol/L (98-107); Est GFR (African American) 49.6 ml/min; Est GFR (Non-African American) 42.8 ml/min; Globulin 3.2 gm/dl (2.5-4.0); Glucose 107 mg/dl (70-99(Fasting)); Potassium 4.3 mmol/L (3.5-5.1); Sodium 142 mmol/L (136-145); Total Protein 7.4 gm/dl (6.0-8.3)
[2024-04-10 23:06] LABS: Thyroid Stimulating Hormone 5.977 uIu/ml (0.300-4.500)
--- NOTE | 2024-04-10 23:08 | History & Physical Report ---
Date of Service April 10, 2024 Assessment & Plan (1) Coagulopathy: Plan: Resulting in bleeding traumatic wound right ankle Patient currently hemodynamically stable. hx PE/A-fib on Coumadin ARF hx chronic diastolic heart failure (55 %, TTE 2023), patient euvolemic to dry valvular heart disease (mild MR/TR) hypertension, stable thyroid cancer status post surgery postsurgical hypothyroidism, TSH slightly elevated Admit to medical telemetry Hold Coumadin for now Follow H&H, transfuse PRBC if hemoglobin less than 7 and or for symptomatic anemia Baseline UA, monitor creatinine response to IVF Recheck TSH next month DVT prophylaxis. SCDs while Coumadin on hold if INR less than 2 Full code Text document was generated using [employer] voice recognition software. It may contain grammatical or spelling errors. Kindly contact undersigned for clarification of any documentation item in question. History of Present Illness Chief Complaint: Right ankle bleeding Primary Care Provider: Campos Lange MD History obtained from patient, family, and records. Medical history significant for chronic diastolic heart failure (55 %, TTE 2023), PE/A-fib on Coumadin, valvular heart disease (mild MR/TR), hypertension, thyroid cancer status post surgery, postsurgical hypothyroidism, GERD. Last confinement last month for rapid A-fib status post cardioversion. Patient woke up this morning at home with nonpainful right ankle bleeding. Not sure about trauma. No recent changes in Coumadin dosing. Spontaneous cessation of bleeding at home. Patient took granddaughter for swimming this afternoon. Upon coming out of the pool, patient noted recurrent bleeding on right ankle from a small wound. No headache, no dizziness, no chest pain, no SOB. Patient consulted ER for evaluation. Right ankle laceration sutured at the ER. Oral Vitamin K administered at the ER. 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 Allergies Allergy/AdvReac Type Severity Reaction Status Date / Time No Known Allergies Allergy Unknown 0 Verified 04/10/24 21:01 Home Medications Medication Instructions Recorded Confirmed Type cholecalciferol (vitamin D3) 10 10 mcg PO QAM 02/20/23 04/10/24 History mcg (400 unit) tablet (Vitamin D3) fluticasone propionate 50 50 mcg intranasal BID 02/20/23 04/10/24 History mcg/actuation nasal spray,suspension levothyroxine 175 mcg tablet 175 mcg PO DAILYBB 02/20/23 04/10/24 History omeprazole 20 mg capsule,delayed 20 mg PO DAILY 02/20/23 04/10/24 History release warfarin 10 mg tablet See Rx Instructions .Route .COMPLEX 02/20/23 04/10/24 History amiodarone 200 mg tablet 200 mg PO QAM 03/13/23 04/10/24 History cetirizine 10 mg tablet (Zyrtec) 10 mg PO DAILY PRN Cough 03/13/23 04/10/24 History furosemide 40 mg tablet 40 mg PO BID PRN SWELLING 03/13/23 04/10/24 History amlodipine 5 mg tablet 5 mg PO QAM 04/10/24 04/10/24 History montelukast 10 mg tablet 10 mg PO HS 04/10/24 04/10/24 History Past Med/Surg History Problem List (Updated 04/11/24 @ 03:37 by Tej Pelaez MD) Coagulopathy Acute hypokalemia (Acute) Encounter for pre-operative examination Chronic cough Atrial fibrillation with rapid ventricular response (Acute) follows w/ [facility] cardio Post-surgical hypothyroidism HTN (hypertension) (Chronic) Medical History (Updated 04/11/24 @ 03:37 by Tej Pelaez MD) CKD (chronic kidney disease) stage 3, GFR 30-59 ml/min Hilar adenopathy Upper airway cough syndrome Oropharyngeal dysphagia Anxiety situational Hx of deep venous thrombosis right calf; 40 yrs ago Hypothyroidism On anticoagulant therapy warfarin daily History of cardioversion 02/21/2023 Depression Hx of pulmonary embolus 40 yrs ago- takes warfarin daily Hx of thyroid cancer hx radiation- 2008 Surgical History Hx of thyroidectomy with neck dissection for thyroid cancer H/O neck surgery X3 total, related to thyroid cancer H/O tubal ligation Family History Father Heart disease Myocardial infarction first at age 48 Other Breast cancer Social History Smoking Status: Never smoker Second Hand Exposure: No; Do You Dip or Chew Tobacco: No; Hx Alcohol Use: No Hx Substance Use: No Preferred Language: Somali Communication Ability: Effective 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 Production Required: No Beliefs That Will Affect Care: None marital status: Current Living Situation: Alone Other Information That Helps Us Care for You: No Feels Safe at Home: Yes Assistive Devices: None Review of Systems Review of Systems: As per HPI, all other systems reviewed and negative Physical Exam Physical Exam: GENERAL: Comfortable, morbidly obese, pleasant, no respiratory distress SKIN: Normal color, warm HEENT: [place] palpebral conjunctivae, no ptosis, dry buccal mucosa NECK : Supple, short neck, no tenderness CHEST : CTA, no tenderness HEART : RRR, no obvious murmurs ABDOMEN: Marked distention, nontender EXTREMITIES : Bilateral LE venous stasis without tenderness, RLE dressing NEUROLOGIC : Coherent, no facial asymmetry, no other gross focality Results & Data Results & Data Vital Signs (Past 12 Hours) Vital Signs Temp Pulse Pulse Resp BP BP Pulse Ox 04/10/24 22:00 68 16 134/88 98 04/10/24 20:00 78 16 140/88 97 04/10/24 18:25 36.8 C 75 19 167/97 H 94 O2 Del Method 04/10/24 22:00 Room Air 04/10/24 20:00 Room Air 04/10/24 18:25 Room Air Laboratory Results Laboratory Results WBC 7.07 K/ul (4.8-10.8) 04/10/24 19:18 RBC 4.94 M/uL (4.20-5.40) 04/10/24 19:18 Hgb 13.8 g/dl (12.0-16.0) 04/10/24 19:18 Hct 42.9 % (37.0-47.0) 04/10/24 19:18 MCV 86.8 fL (80.0-100.0) 04/10/24 19:18 MCH 27.9 pg (25.0-34.0) 04/10/24 19:18 MCHC 32.2 g/dL (32.0-36.0) 04/10/24 19:18 RDW Std Deviation 47.9 fL (36.4-46.3) H 04/10/24 19:18 RDW Coeff of Torsten 15.0 % (11.5-14.5) H 04/10/24 19:18 Plt Count 155 K/uL (130-400) 04/10/24 19:18 MPV 10.2 fL (9.4-12.4) 04/10/24 19:18 Immature Gran % (Auto) 0.4 % 04/10/24 19:18 Neut % (Auto) 73.3 % 04/10/24 19:18 Lymph % (Auto) 17.8 % 04/10/24 19:18 [place] % (Auto) 6.4 % 04/10/24 19:18 Eos % (Auto) 1.7 % 04/10/24 19:18 Baso % (Auto) 0.4 % 04/10/24 19:18 Neut # (Auto) 5.18 K/uL (1.40-6.50) 04/10/24 19:18 Lymph # (Auto) 1.26 K/uL (1.20-3.40) 04/10/24 19:18 [place] # (Auto) 0.45 K/uL (0.11-0.59) 04/10/24 19:18 Eos # (Auto) 0.12 K/uL (0.00-0.50) 04/10/24 19:18 Baso # (Auto) 0.03 K/uL (0.00-0.20) 04/10/24 19:18 Immature Gran # (Auto) 0.03 K/uL (0.01-0.20) 04/10/24 19:18 PT > 90.0 Seconds (9.0-12.0) H 04/10/24 19:18 INR > 9.5 (0.9-1.1) H* 04/10/24 19:18 Sodium 142 mmol/L (136-145) 04/10/24 19:18 Potassium 4.3 mmol/L (3.5-5.1) 04/10/24 19:18 Chloride 104 mmol/L (98-107) 04/10/24 19:18 Carbon Dioxide 31 mmol/L (21-32) 04/10/24 19:18 Anion Gap 7 (3-11) 04/10/24 19:18 BUN 19 mg/dl (6-23) 04/10/24 19:18 Creatinine 1.29 mg/dl (0.6-1.2) H 04/10/24 19:18 Est Cr Clr Drug Dosing Not Reportable 04/10/24 19:18 Est GFR ( Amer) 49.6 ml/min 04/10/24 19:18 Est GFR (Non-Af Amer) 42.8 ml/min 04/10/24 19:18 BUN/Creatinine Ratio 14.7 (10-20) 04/10/24 19:18 Glucose 107 mg/dl (70-99(Fasting)) H 04/10/24 19:18 Calcium 9.6 mg/dl (8.6-10.3) 04/10/24 19:18 Total Bilirubin 0.8 mg/dl (0.2-1.0) 04/10/24 19:18 AST 45 U/L (13-39) H 04/10/24 19:18 ALT 26 U/L (7-52) 04/10/24 19:18 Alkaline Phosphatase 101 U/L (34-104) 04/10/24 19:18 Total Protein 7.4 gm/dl (6.0-8.3) 04/10/24 19:18 Albumin 4.2 gm/dl (3.4-5.0) 04/10/24 19:18 Globulin 3.2 gm/dl (2.5-4.0) 04/10/24 19:18 Albumin/Globulin Ratio 1.3 (0.9-2) 04/10/24 19:18 TSH 5.977 uIu/ml (0.300-4.500) H 04/10/24 19:18
[2024-04-10] MEDS ORDERED: oxyCODONE HCL IR 5 MG TAB (IMMEDIATE RELEASE) PO PRN (23:10)
[2024-04-10] MEDS ORDERED: ACETAMINOPHEN 500 MG TAB PO PRN (23:10)
[2024-04-10 23:43] LABS: T4 Free Thyroxine 1.18 ng/dl (0.61-1.60)
--- OUTSIDE RECORDS SUMMARY | 2024-04-11 00:07 | External Medical Summary | Summary of Care ---
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 Encounter Details Date Type Department Care Team (Late st Contact Info) Description 02/13/2024 8:20 AM EDT Office Visit Family Practice [facility] [address] [place] [address] Alicia Meyers CRNP [address] [place] [address] Moderate persistent asthma with exacerbation*; Chronic cough Allergies No known active allergiesdocumented as of this encounter (statuses as of 02/13/2024) Medications Medication Sig Dispensed Refills Start Date End Date Status VITAMIN D 400 UNIT PO TABSIndications:Hy pocalcemia 2 Tab Oral Daily qs 0 06/30/2009 Active Fluticasone Propionate 50 MCG/ACT Nasal Suspension (Flonase Allergy Relief) Administer 1 [place] into nostril in the morning. 15.8 mL 3 12/11/2022 Active Warfarin Sodium 10 MG Oral Tablet (Coumadin)Indicati ons:History of pulmonary embolism TAKE 1 TAB BY MOUTH DAILY. DIRECTED BY THE [facility] 90 Tablet 3 02/02/2023 Active Furosemide 40 MG Oral Tablet (Lasix) Take one tab by mouth daily (40mg) and ok to take a second tab daily by mouth as needed for worsening leg swelling and weight gain 60 Tablet 11 03/02/2023 Active Albuterol Sulfate 108 (90 Base) MCG/ACT Inhalation Aerosol Powder Breath Activated Inhale 2 Puffs by mouth every 4 hours. 1 Each 3 03/05/2023 Active amLODIPine Besylate 5 MG Oral Tablet (Norvasc) Take 1 Tablet by mouth in the morning. 90 Tablet 3 04/02/2023 Active Metoprolol Succinate ER 25 MG Oral Tablet Extended Release 24 Hour (toPROL XL) Take 1 Tablet by mouth in the morning. 90 Tablet 3 04/27/2023 Active Amiodarone HCl 200 MG Oral Tablet (Cordarone)Indicat ions:PAF (paroxysmal atrial fibrillation) (HCC),Atrial fibrillation with rapid ventricular response (HCC) Take 1 Tablet by mouth in the morning. 90 Tablet 3 04/27/2023 Active Cetirizine HCl 10 MG Oral Tablet (ZyrTEC Allergy) Take 1 Tablet by mouth in the morning. Active Levothyroxine Sodium 175 MCG Oral Tablet (Levoxyl)Indicatio ns:Malignant neoplasm of thyroid gland (HCC) TAKE 1 TABLET BY MOUTH IN THE MORNING. (AT LEAST 30 MIN PRIOR TO BREAKFAST OR OTHER MEDS). 90 Tablet 3 08/30/2023 Active Montelukast Sodium 10 MG Oral Tablet (Singulair)Indicat ions:Mild intermittent asthma with exacerbation Take 1 Tablet by mouth at bedtime. 90 Tablet 3 09/07/2023 Active Fluticasone Furoate-Vilanterol 200-25 MCG/ACT Inhalation Aerosol Powder Breath Activated (BREO ellipta) Inhale 1 Puff by mouth in the morning. 60 Blister Dosing Unit 3 11/28/2023 Active Omeprazole 20 MG Oral Capsule Delayed Release (PriLOSEC)Indicati ons:Gastroesophage al reflux disease without esophagitis TAKE 1 CAPSULE EVERY DAY 1 HOUR BEFORE THE FIRST MEAL OF THE DAY 90 Capsule 3 12/05/2023 Active Fluticasone-Umecli din-Vilant 200-62.5-25 MCG/ACT Aerosol Powder Breath Activated (Trelegy Ellipta) Inhale 1 Puff by mouth every evening. 60 Blister Dosing Unit 3 02/06/2024 Active hydrOXYzine HCl 10 MG Oral Tablet (Atarax) Take 1-2 tablets every 8 hours as needed for anxiety 60 Tablet 1 02/06/2024 Active predniSONE 20 MG Oral Tablet (Deltasone) Take 1 Tablet by mouth daily for 5 days, THEN 0.5 Tablets daily for 5 days. 8 Tablet 02/13/2024 02/23/2024 Active Azithromycin 250 MG Oral Tablet (Zithromax) Take 2 tabs by mouth on the first day, then 1 tab daily on days two through five 6 Tablet 02/13/2024 02/18/2024 Active Hospital, Clinic, or Other Facility Administered Medication Ordered Dose Route Frequency Start Date End Date Status Albuterol Sulfate (Proventil) (2.5 MG/3ML) 0.083% inhalation solution 2.5 mgIndications:Chronic cough 2.5 mg NEBULIZER PRN 03/23/2023 03/22/2024 Active Albuterol Sulfate (Proventil) (5 MG/ML) 0.5% *conc* inhalation solution 2.5 mgIndications:Chronic cough 2.5 mg NEBULIZER PRN 03/23/2023 03/22/2024 Active documented as of this encounter (statuses as of 02/13/2024) Active Problems Problem Noted Date Diagnosed Date Acute reaction to situational stress 02/06/2024 BMI 45.0-49.9, adult 02/06/2024 Gastro-esophageal reflux disease without esophag itis 02/06/2024 Chronic cough 11/28/2023 Hypertensive heart and kidne y disease with chronic diastolic congestive heart failure and stage 3a chronic kidney disease 11/28/2023 PAF (paroxysmal atrial fibrillation) 03/18/2023 Chronic heart failure with preserved ejection fr action 03/18/2023 HTN, goal below 130/80 03/18/2023 Oropharyngeal dysphagia 03/05/2023 Hilar adenopathy 03/05/2023 History of thyroid cancer 11/06/2022 Stage 3a chronic kidney disease 10/25/2020 Overview: Per CKD protocol Hypothyroidism, postablative 07/18/2015 History of pulmonary embolism 04/05/2010 Morbidly obese 03/01/2010 Overview: Per Obesity Protocol, #19 ICD-10 update of inactive term documented as of this encounter (statuses as of 02/13/2024) Resolved Problems Problem Noted Date Diagnosed Date Resolved Date Mild persistent asthma without complication 11/28/2023 02/06/2024 Morbid obesity with BMI of 40.0-44.9, adult 11/28/2023 12/27/2023 Upper respiratory tract infection 09/24/2023 11/28/2023 Mild persistent asthma with acute exacerbation 09/24/2023 11/28/2023 Body mass index (BMI) of 45. 0 to 49.9 in adult 06/25/2023 09/06/2023 Overview: Per Obesity protocol - Per Obesity protocol - Per Obesity protocol - Per Obesity protocol Body mass index (BMI) of 40. 0 to 44.9 in adult 03/26/2023 06/28/2023 Overview: Per Obesity protocol - Per Obesity protocol - Per Obesity protocol Upper airway cough syndrome 03/05/2023 09/06/2023 Chronic cough 03/05/2023 09/06/2023 Multiple closed fractures of ribs of right side 03/05/2023 09/06/2023 Hypertensive kidney disease with stage 3a chronic kidney disease 02/26/2023 09/06/2023 Body mass index (BMI) of 45. 0 to 49.9 in adult 12/25/2022 03/29/2023 Overview: Per Obesity protocol - Per Obesity protocol Body mass index (BMI) of 40. 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 Area of suspicion in right neck on diagnostic US not confirmed at August 2010 US Guided FNAB appointment so no biopsy performed. Thyroglobulin 0.3 with TSH 0.19 Jan 2011. Repeat US revealed [address] with Fatty Hilum. No FNAB recommended by Radiologist. Thyroglobulin 0.4 in June 2012. Other pulmonary embolism and infarction 07/07/2009 04/05/2010 Hypocalcemia 06/26/2009 07/18/2019 Overview: Post thyroidectomy Malignant neoplasm of thyroid gland 06/25/2009 07/18/2019 Overview: 53 year old female at diagnosis s/p total thyroidectomy Diaz Box DO Jun 25, 2009. Path report describes a 0.2 cm focus in thryoid with 9 out of 33 positive lymph nodes for papillary thyroid cancer. Malignant neoplasm of thyroid gland 05/27/2009 06/25/2009 Anticoagulation management encounter 05/17/2009 09/06/2023 Iatrogenic pulmonary embolism and infarction 9 07/07/2009 Pyogenic granuloma 06/04/2003 9 Onychia of finger 06/04/2003 01/01/2018 HTN, goal below 140/90 04/28/200209/06 documented as of this encounter (statuses as of 02/13/2024) Immunizations Name Administration Dates Next Due COVID-19 mRNA, LNP-s, No Pre serve, 2-Dose Series (Moderna) 11/18/2020,10/23/2020 COVID-19, mRNA, LNP-s, PF, B ooster, 100mcg/0.5mg (Moderna) 09/24/2021 Pneumococcal Conjugate Vacci ne, 20-valent ([id number]) 11/07/2023 Pneumococcal Polysaccharide PPV23 (Pneumovax) 11/04/2021 Seasonal Influenza, PF, 6 M & above, IM , (FluLaval or Fluzone) 07/19/2020,07/18/2019,07/09/2018,06/18 Seasonal Influenza, Quadriva lent Hd (Fluzone Hd) 11/07/2023,09/06/2021 Seasonal Influenza, Quadriva lent, No Preserve, IM 08/30/2016,07/01/2015 Seasonal Influenza, Split, I IV3, With Preserve, Inj 09/19/2014,06/26/2013,06/07/2011,05/18,05/18/2009 09/19/2015 TD, Preservative Free 11/04/2021 TDAP (age 11 and older)(Adacel) 04/20/2011 documented as of this encounter Social History Tobacco Use Types Packs/Day Years Used Date Smoking Tobacco: Never Smokeless Tobacco: Never Alcohol Use Standard Drinks/Week Comments No 0 (1 standard drink = 0.6 oz pur e alcohol) PHQ-2 Answer Date Recorded PHQ-2 Score 0 07/18/2019 Hunger Vital Sign Answer Date Recorded Worried About Running Out of Food in the Last Ye ar Never true 07/18/2019 Ran Out of Food in the Last Year Never true 07/18/2019 Sex and Gender Information Value Date Recorded Sex Assigned at Not on file Gender Identity Not on file Sexual Orientation Not on file Job Start Date Occupation Industry Not on file Not on file Not on file documented as of this encounter Last Filed Vital Signs Vital Sign Reading Time Taken Comments Blood Pressure 134/70 02/13/2024 8:22 AM EDT Pulse 72 02/13/2024 8:22 AM EDT Temperature - - Respiratory Rate 16 02/13/2024 8:22 AM EDT Oxygen Saturation 93% 02/13/2024 8:22 AM EDT Inhaled Oxygen Concentration - - Weight - - Height 165.1 cm (5' 5") 02/13/2024 8:22 AM EDT Body Mass Index - - documented in this encounter Functional Status Functional Status Response Date of Assess ment Are you deaf or do you have serious difficulty h earing? No 12/03/2014 Are you blind or do you have serious difficulty seeing, even when wearing glasses? No 12/03/2014 Do you have serious difficul ty walking or climbing stairs? (5 years old or older) No 12/03/2014 Do you have difficulty dress ing or bathing? (5 years old or older) No 12/03/2014 Because of a physical, menta l, or emotional condition, do you have difficulty doing errands alone such as visiting a doctor s office or shopping? (15 years old or older) No 12/04/19 15 Cognitive Status Response Date of Assessm ent Because of a physical, menta l, or emotional condition, do you have serious difficulty concentrating, remembering, or making decisions? 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 History of Present Illness: Taylor Kraft is a 68 year old female presenting for new cough. This was sudden onset last Sunday. Using albuterol 2-3 times a day She started trelegy Sunday night and this barky cough started Sunday am. 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 [employer] Tobacco Use Smoking status: Never Smokeless tobacco: Never Vaping Use Vaping status: Never Used Substance and Sexual Activity Alcohol use: No Drug use: No Sexual activity: Yes control/protection: Surgical Other Topics Concern Not on file Social History Narrative 1 dog No mold Social Determinants of Health Financial Resource Strain: Not on file Food Insecurity: No Food Insecurity (07/18/2019) Hunger Vital Sign Worried About Running Out of Food in the Last Year: Never true Ran Out of Food in the Last Year: Never true Transportation Needs: Not on file Physical Activity: Not on file Stress: Not on file Social Connections: Not on file Intimate Partner Violence: Not At Risk (05/04/2023) Received from [facility], [facility] Safety Threatened: Not on file Insulted: Not on file Physically Hurt : Not on file Scream: Not on file Housing Stability: Low Risk (01/15/2024) [facility]ceived [facility], [facility] Housing Stability Unstable Housing in the Last Year: Not on file PMH: Past Medical History: Diagnosis Date Depressive disorder, not elsewhere classified HTN, goal below 140/90 Malignant neoplasm of thyroid gland (HCC) 06/25/2009 53 year old female s/p total thyroidectomy Diaz Box, Jun 25, 2009 Mitral valve regurgitation Obstetrical blood-clot embolism, antepartum 1980 very early , loss Other postablative hypothyroidism 08/18/2009 149 mCi I-131 August 04, 2009 under thyrogen with possible mediastinal lymph node on scan and a large thyroid remnant. Pulmonary embolus (HCC) 04/25 Past Surgical History: Procedure Laterality Date COLONOSCOPY W/ BIOPSY (RECTUM) 01/30/07 path-normal, repeat 2016 COLONOSCOPY, DIAGNOSTIC (RECTUM) 07/29/2018 adenomatous polyp, diverticulosis, repeat 5 yrs/COLONOSCOPY FLEXIBLE PROXIMAL DIAGNOSTIC performed by Anali James MD at END[facility]COPY [facility] FOLLOWUP THYROID SURGERY Left 12/03/2014 THYROIDECTOMY FOLLOWING PREVIOUS REMOVAL PORTION THYROID performed [place] Gurmeet Sood [place] [facility] labor and del x2 LIGATE/CUT OVIDUCT(S) PARATHYROID AUTOTRANSPLANTATION 06/25/09 PARATHYROID AUTOTRANSPLANTATION performed by DIAZ BOX [place] [facility] [place]OVAL OF NECK LYMPH NODES Left 11/10/2015 lymph node dissection for thyroid cancer REMOVAL OF THYROID FOR TUMOR 06/25/09 THYROIDECTOMY WITH LIMITED NECK DISSECTION performed by DIAZ BOX [place] [facility] [place]COMPLETE x6 including tubl preg post tubal lig Current Outpatient Medications Medication Sig Dispense Refill Bauipbininc-Deukncxaj-Cthavx 200-62.5-25 MCG/ACT Aerosol Powder Breath Activated (Trelegy Ellipta) Inhale 1 Puff by mouth every evening. 60 Blister Dosing Unit 3 hydrOXYzine HCl 10 MG Oral Tablet (Atarax) Take 1-2 tablets every 8 hours as needed for anxiety 60 Tablet 1 Omeprazole 20 MG Oral Capsule Delayed Release (PriLOSEC) TAKE 1 CAPSULE EVERY DAY 1 HOUR BEFORE THEFIRST MEAL OF THE DAY 90 Capsule 3 Fluticasone Furoate-Vilanterol 200-25 MCG/ACT Inhalation Aerosol Powder Breath Activated (BREO ellipta) Inhale 1 Puff by mouth in the morning. 60 Blister Dosing Unit 3 Montelukast Sodium 10 MG Oral Tablet (Singulair) Take 1 Tablet by mouth at bedtime. 90 Tablet 3 Levothyroxine Sodium 175 MCG Oral Tablet (Levoxyl) TAKE 1 TABLET BY MOUTH IN THE MORNING. (AT LEAST30 MIN PRIOR TO BREAKFAST OR OTHER MEDS). 90 Tablet 3 Cetirizine HCl 10 MG Oral Tablet (ZyrTEC Allergy) Take 1 Tablet by mouth in the morning. Amiodarone HCl 200 MG Oral Tablet (Cordarone) Take 1 Tablet by mouth in the morning. 90 Tablet 3 Metoprolol Succinate ER 25 MG Oral Tablet Extended Release 24 Hour (toPROL XL) Take 1 Tablet by mouth in the morning. 90 Tablet 3 amLODIPine Besylate 5 MG Oral Tablet (Norvasc) Take 1 Tablet by mouth in the morning. 90 Tablet 3 Albuterol Sulfate 108 (90 Base) MCG/ACT Inhalation Aerosol Powder Breath Activated Inhale 2 Puffs by mouth every 4 hours. 1 Each 3 Furosemide 40 MG Oral Tablet (Lasix) Take one tab by mouth daily (40mg) and ok to take a second tabdaily by mouth as needed for worsening leg swelling and weight gain 60 Tablet 11 Warfarin Sodium 10 MG Oral Tablet (Coumadin) TAKE 1 TAB BY MOUTH DAILY. DIRECTED BY THE COUMADINCLINIC 90 Tablet 3 Fluticasone Propionate 50 MCG/ACT Nasal Suspension (Flonase Allergy Relief) Administer 1 [place] intonostril in the morning. 15.8 mL 3 VITAMIN D 400 UNIT PO TABS 2 Tab Oral Daily qs 0 Current Facility-Administered Medications Medication Dose Route Frequency Provider Last Rate Last Admin Albuterol Sulfate (Proventil) (2.5 MG/3ML) 0.083% inhalation solution 2.5 mg 2.5 mg Nebulizer PRN RhedAlicia CRNP Albuterol Sulfate (Proventil) (5 MG/ML) 0.5% *conc* inhalation solution 2.5 mg 2.5 mg Nebulizer PRNRAlicia bautista CRNP 2.5 mg at 10/16/23 0753 Review of patient's allergies indicates: No Known Allergies Most Recent Immunizations Administered Date(s) Administered COVID-19 mRNA, LNP-s, No Preserve, 2-Dose Series (Moderna) 11/18/2020 COVID-19, mRNA, LNP-s, PF, Booster, 100mcg/0.5mg (Moderna) 09/24/2021 Diptheria/Tetanus Adult (TD) 01/20/2002 Pneumococcal Conjugate Vaccine, 20-valent ([id number]) 11/07/2023 Pneumococcal Polysaccharide PPV23 (Pneumovax) 11/04/2021 Seasonal Influenza, PF, 6 M & above, IM , (FluLaval or Fluzone) 07/19/2020 Seasonal Influenza, Quadrivalent Hd (Fluzone Hd) 11/07/2023 Seasonal Influenza, Quadrivalent, No Preserve, IM 08/30/2016 Seasonal Influenza, Split, IIV3, With Preserve, Inj 09/19/2014 TD, Preservative Free 11/04/2021 TDAP (age 11 and older)(Adacel) 04/20/2011 Physical Exam: BP 134/70 | Pulse 72 | Resp 16 | Ht 1.651 m (5' 5") | LMP 12/12/2006 | SpO2 93% | BMI 45.51 kg/m | BSA 2.39 m Physical Exam Constitutional: Appearance: She is obese. HENT: Head: Normocephalic. Nose: Mucosal edema present. Mouth/Throat: Pharynx: No posterior oropharyngeal erythema. Tonsils: No tonsillar exudate. Cardiovascular: Rate and Rhythm: Normal rate and regular rhythm. Pulmonary: Effort: Pulmonary effort is normal. Breath sounds: Examination of the right-lower field reveals decreased breath sounds. Examination ofthe left-lower field reveals decreased breath sounds. Decreased breath sounds present. Musculoskeletal: Cervical back: Normal range of motion. Lymphadenopathy: Cervical: No cervical adenopathy. Neurological: Mental Status: She is alert and oriented to person, place, and time. Psychiatric: Attention and Perception: Attention normal. Mood and Affect: Mood normal. Speech: Speech normal. Behavior: Behavior normal. Behavior is cooperative. Thought Content: Thought content normal. Cognition and Memory: Cognition and memory normal. Judgment: Judgment normal. Assessment and Plan: 1. Moderate persistent asthma with exacerbation UNCLEAR TRIGGER SUSPECTED ALLERGY GERD- CONTROLLED ADD PREDNISONE ADD AZITHROMYCIN ADD ALBUTEROL CONTINUE MUCINEX CONTINUE TRELEGY 200 2. Chronic cough Increased from BASELINE Recommend supportive care including: -Humidifier -Rest -Push fluids -Reviewed pathophysiology of viral URIk -Recommend handwashing and covering cough -Reviewed signs and symptoms in which to seek medical care I have advised the patient to call our office incase of any worsening or new symptoms. I spent a total of 20-29 minutes (exact time 25 mins) on the date of service in preparation, delivery, and documentation of the care provided to Taylor Kraft excluding any time spent in the performance of separately billed services. Janet, MSN, [facility] * Kelley Barrera MED ASSIST - 02/13/2024 8:23 AM EDT The patient has been properly identified by confirmation of name and date of . documented in this encounter Nursing Notes * Kelley Barrera MED ASSIST - 02/13/2024 8:21 AM EDT documented in this encounter Plan of Treatment Upcoming Encounters Date Type Department Care Team (Latest Contact Info) Description 02/20/2024 10:10 AM EDT Laboratory Laboratory, [facility] [address] [place] [phone] [facility] [address] [place] [phone] 02/21/2024 6:15 AM EDT Anticoagulation Pharmacy Call Center [phone] [place] [address] [facility] [address] [facility] [place] [address] 05/15/2024 9:40 AM EDT Office Visit [facility] [address] [place] [address] Alicia Meyers CRNP [address] [place] [address] 07/16/2024 11:46 AM EDT Hospital Encounter OR [facility], Operating Room, [facility] - 4th Floor [address] [place] [address] Viri Hightower MD [address] [place] [address] 07/16/2024 11:46 AM EDT - 07/16/2024 12:39 PM EDT Surgery OR [facility], Operating Room, [facility] Floor [address] [place] [address] Viri Hightower MD [address] [place] [phone] COLONOSCOPY FLEXIBLE PROXIMAL DIAGNOSTIC 11/10/2024 8:20 AM EST Office Visit [facility] [address] [place] [phone] Campos Lange MD [address] [place] [address] Scheduled Procedures Name Priority Associated Diagnoses Date/Ti me COLONOSCOPY FLEXIBLE PROXIMAL DIAGNOSTIC Recall History of colon polyps 07/16/2024 11:46 AM EDT Health Maintenance Due Date Last Done Comments Cologuard 2001 Fecal Occult Blood Test 2001 Sigmoidoscopy 2001 Zoster Vaccines (1 of 2) 2006 Depression Screening 07/19/2021 07/19/2020 COVID-19 Vaccine ( season) 2023 09/24/2021, 11/18/2020, 10/23/2020 Colonoscopy 07/29/2023 07/29/2018, 07/18, 01/30/2007 Colorectal Cancer Screening 07/29/2023 CKD PHOS USE SMARTSET 16960 11/07/202310/19, 07/23/2019, 03/25/2014 CKD HGB USE SMARTSET 81420 04/30/202404/30, 04/30/2023, 11/07/2022, Additional history exists GFR 05/07/2024 11/07/2023, 04/17, 03/02/2023, Additional history exists TSH 11/07/2024 11/07/2023, 04/17, 03/02/2023, Additional history exists Albumin/Creatinine Ratio 11/13/2024 11/13/2023, 10/19 Mammogram 02/05/2025 02/06/2024, 04/2023, 01/22/2023, Additional history exists Diabetes Screening 11/07/2026 11/07/2023, 0 04/27/2023, 03/02/2023, Additional history exists Lipid Panel 11/07/2027 11/07/2022, 02/15, 09/27/2020, Additional history exists DXA Scan 12/06/2029 12/06/2022, 11/16, 04/16/2013 DTaP,Tdap,and Td Vaccines (3 - Td or Tdap) 11/04/2031 11/04/2021, 04/20/2011, 01/20/2002 Pap Smear Discontinued 08/19/2014, 11/2013, 04/03/2013, Additional history exists RETIRED - COLONOSCOPY-EVERY 5 YRS AGES 18-100 Discontinued 07/29/2018, 07/29/2018, 01/30/2007 Influenza Vaccine (FLU shot) Completed 11/07/2023, 09/06/2021, 07/19/2020, Additional history exists Pneumococcal Vaccine: 65+ Years Completed 11/07/2023, 11/04/2021 GARDASIL-HPV IMMUNIZATION SERIES Aged Out No longer eligible based on patient's age to complete this topic Hepatitis B Aged Out No longer eligi ble based on patient's age to complete this topic MENINGOCOCCAL (MENACTRA/MENVEO) Aged Out No longer eligible based on patient's age to complete this topic documented as of this encounter Medical Devices Not on filedocumented as of this encounter Visit Diagnoses Diagnosis Moderate persistent asthma with exacerbation- Primary Unspecified asthma, with exacerbation Chronic cough Cough History of colon polyps Personal history of colonic polyps documented in this encounter Advance Directives * Full Code (Latest Code Status on File) Date Activated Date Inactivated Comments 12/03/2014 4:13 PM 12/04/2014 12:54 PM This order reflects the patients wishes and were consensually agreed upon. * Full Code Date Activated Date Inactivated Comments 06/22/2009 7:09 PM 07/01/2009 2:52 AM This order reflects the patients wishes and were consensually agreed upon. Care Teams Inspector And Clerk Relationship Specialty Start Date End Date Campos Lange MD [address] [place] [address] PCP - General Family Medicine 10/07/15 documented as of this encounter
--- OUTSIDE RECORDS SUMMARY | 2024-04-11 00:07 | External Medical Summary ---
Author Name Unknown Address Unknown Organization [id number]:[facility] - [facility] [address] [place] [address] Laboratory Report Ordering Provider Test Date Status MARLENE COVARRUBIAS 02/25/2024 09:42:07 Final Please draw PT/INR every 1-4 weeks or as requested by the [facility]

Warfarin Therapy
INR: 2.0-3.0 conventional anticoagulation
INR: 2.5-3.5 high intensity anticoagulation Observation Date Value Abnormality Reference (Units ) Status PT 02/25/2024 09:42:07 28.2 Above high normal 11 .6-15.2 (seconds) Final INR 02/25/2024 09:42:07 2.6 Above high normal 0. 8-1.2 Final Performing Location [facility] - [facility] [address] [place] [address]
--- OUTSIDE RECORDS SUMMARY | 2024-04-11 00:07 | External Medical Summary | Summary of Care ---
Author Name Unknown Organization [facility] Address [address] [place] [address] Phone [phone] Care Team Providers Care Clerical Supervisor Name Role Phone Capmos Lange MD Primary Care Provider +1- [phone] Reason for Visit * Reason Comments eRx-Medication Refill Encounter Details Date Type Department Care Team (Late st Contact Info) Description 03/11/2024 Refill Cardiology, [facility] [address] [facility] [place] [address] Francie Bartholomew, DO [address] [facility] [place] [address] HTN, goal below 130/80*; Chronic heart failure with preserved ejection fraction (HCC) Allergies No known active allergiesdocumented as of this encounter (statuses as of 03/11/2024) Medications Medication Sig Dispensed Refills Start Date End Date Status VITAMIN D 400 UNIT PO TABSIndications:H ypocalcemia 2 Tab Oral Daily qs 0 06/30/2009 Active Fluticasone Propionate 50 MCG/ACT Nasal Suspension (Flonase Allergy Relief) Administer 1 [place] into nostril in the morning. 15.8 mL 3 12/11/2022 Active Warfarin Sodium 10 MG Oral Tablet (Coumadin)Indicat ions:History of pulmonary embolism TAKE 1 TAB BY MOUTH DAILY. DIRECTED BY THE COU[facility]ADIN CLINIC 90 Tablet 3 02/02/2023 Active Albuterol Sulfate 108 (90 Base) MCG/ACT [...] Active Amiodarone HCl 200 MG Oral Tablet (Cordarone)Indica tions:PAF (paroxysmal atrial fibrillation) (HCC),Atrial fibrillation with rapid ventricular response (HCC) Take 1 Tablet by mouth in the morning. 90 Tablet 3 04/27/2023 Active Cetirizine HCl 10 MG Oral Tablet (ZyrTEC Allergy) Take 1 Tablet by mouth in the morning. Active Levothyroxine Sodium 175 MCG Oral Tablet (Levoxyl)Indicati ons:Malignant neoplasm of thyroid gland (HCC) TAKE 1 TABLET BY MOUTH IN THE MORNING. (AT LEAST 30 MIN PRIOR TO BREAKFAST OR OTHER MEDS). 90 Tablet 3 08/30/2023 Active Montelukast Sodium 10 MG Oral Tablet (Singulair)Indica tions:Mild intermittent asthma with exacerbation Take 1 Tablet by mouth at bedtime. 90 Tablet 3 09/07/2023 Active Fluticasone Furoate-Vilantero l 200-25 MCG/ACT Inhalation Aerosol Powder Breath Activated (BREO ellipta) Inhale 1 Puff by mouth in the morning. 60 Blister Dosing Unit 3 11/28/2023 Active Omeprazole 20 MG Oral Capsule Delayed Release (PriLOSEC)Indicat ions:Gastroesopha geal reflux disease without esophagitis TAKE 1 CAPSULE EVERY DAY 1 HOUR BEFORE THE FIRST MEAL OF THE DAY 90 Capsule 3 12/05/2023 Active Fluticasone-Umecl idin-Vilant 200-62.5-25 MCG/ACT Aerosol Powder Breath Activated (Trelegy Ellipta) Inhale 1 Puff by mouth every evening. 60 Blister Dosing Unit 3 02/06/2024 Active hydrOXYzine HCl 10 MG Oral Tablet (Atarax) Take 1-2 tablets every 8 hours as needed for anxiety 60 Tablet 1 02/06/2024 Active Furosemide 40 MG Oral Tablet (Lasix)Indication s:HTN, goal below 130/80,Chronic heart failure with preserved ejection fraction (HCC) TAKE 1 TAB BY MOUTH DAILY. MAY TAKE A SECOND TAB DAILY NEEDED FOR WORSENING LEG SWELLING AND WEIGHT GAIN 135 Tablet 3 03/11/2024 Active Furosemide 40 MG Oral Tablet (Lasix) Take one tab by mouth daily (40mg) and ok to take a second tab daily by mouth as needed for worsening leg swelling and weight gain 60 Tablet 11 03/02/2023 03/11/20 24 Discontinued Hospital, Clinic, or Other Facility Administered Medication Ordered Dose Route Frequency Start Date End Date Status Albuterol Sulfate (Proventil) (2.5 MG/3ML) 0.083% inhalation solution 2.5 mgIndications:Chronic cough 2.5 mg NEBULIZER PRN 03/23/2023 03/22/2024 Active Albuterol Sulfate (Proventil) (5 MG/ML) 0.5% *conc* inhalation solution 2.5 mgIndications:Chronic cough 2.5 mg NEBULIZER PRN 03/23/2023 03/22/2024 Active documented as of this encounter (statuses as of 03/11/2024) Active Problems Problem Noted Date Diagnosed Date [...] postablative 07/18/2015 History of pulmonary embolism 04/05/2010 documented as of this encounter (statuses as of 03/11/2024) Resolved Problems Problem Noted Date Diagnosed Date [...] CUFF SYNDROME, RIGHT SHOULDER 04/05/2010 07/18/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 Path report describes a [...] as of this encounter (statuses as of 03/11/2024) Immunizations Name Administration Dates Next Due COVID-19 mRNA, LNP-s, No Pre serve, 2-Dose Series (Moderna) 11/18/2020,10/23/2020 COVID-19, mRNA, LNP-s, PF, B ooster, 100mcg/0.5mg (Moderna) 09/24/2021 Pneumococcal Conjugate Vacci ne, 20-valent ([id number]) 11/07/2023 Pneumococcal Polysaccharide PPV23 (Pneumovax) 11/04/2021 Seasonal Influenza, PF, 6 M & above, IM , (FluLaval or Fluzone) 07/19/2020,07/18/2019,07/09/2018,06/18 Seasonal Influenza, Quadriva lent Hd (Fluzone Hd) 11/07/2023,09/06/2021 Seasonal Influenza, Quadriva lent, No Preserve, IM 08/30/2016,07/01/2015 Seasonal Influenza, Split, I IV3, With Preserve, Inj 09/19/2014,06/26/2013,06/07/2011,05/18,05/18/2009 09/19/2015 TD, Preservative Free 11/04/2021 TDAP, Age 7 and older, IM (Adacel) 04/20/2011 documented as of this encounter Social [...] on file documented as of this encounter Functional Status Functional Status Response [...] No 12/03/2014 documented as of this encounter Miscellaneous Notes * Telephone Encounter - Chris Covington CRNP - 03/11/2024 2:59 PM EDTSigned Prescriptions: Disp Refills Furosemide 40 MG Oral Tablet (Lasix) 135 Ta*3 Sig: TAKE 1 TAB BY MOUTH DAILY. MAY TAKE A SECOND TAB DAILY NEEDED FOR WORSENING LEG SWELLING AND WEIGHT GAIN Authorizing Provider: CHRIS COVINGTON * Telephone Encounter - Anel Mendez CMA - 03/11/2024 12:22 PM EDTPending Prescriptions: Disp Refills Furosemide 40 MG Oral Tablet (Lasix) 135 Ta*3 Sig: TAKE 1 TAB BY MOUTH DAILY. MAY TAKE A SECOND TAB DAILY NEEDED FOR WORSENING LEG SWELLING AND WEIGHT GAIN * Telephone Encounter - Anel Mendez CMA - 03/11/2024 12:22 PM EDT Did you pend patient's preferred pharmacy and medication before forwarding?yes Pharmacy: [id number] [address] [facility] Pending Prescriptions: Disp Refills Furosemide 40 MG Oral Tablet (Lasix) [Pha*135 Ta*3 Sig: TAKE 1 TAB BY MOUTH DAILY. MAY TAKE A SECOND TAB DAILY NEEDED FOR WORSENING LEG SWELLING AND WEIGHT GAIN Last Visit: 10/30/2023 (in office), Visit date not found (telemedicine) Next Visit: Visit date not found If no future appointments scheduled, and last appointment is greater than a year ago, please schedule patient for a follow-up appointment Last date the medication was ordered: 03-02-2023 Is this request for a controlled substance?No Urine Drug Screen:No results found. However, due to the size of the patient record, not all encounters were searched. Please check Results Review for a complete set of results. Patient Phone Numbers Labs: Lab Results Component Value Date/Time CREAT 1.1 (H) 11/07/2023 09:21 AM CREAT 1.2 (H) 09/27/2020 10:09 AM POTASSIUM 4.1 11/07/2023 09:21 AM POTASSIUM 4.4 09/27/2020 10:09 AM TSH 5.54 (H) 11/07/2023 09:21 AM TSH 1.40 11/13/2019 09:19 AM LDLCALC 115 11/07/2022 10:34 AM LDLCALC 141 (H) 09/27/2020 10:09 AM LDLDIRECT NOT APPLICABLE 09/27/2020 10:09 AM ALT 39 (H) 11/07/2023 09:21 AM ALT 35 11/13/2015 12:00 AM ALT 26 03/27/2013 08:43 AM documented in this encounter Plan of Treatment Upcoming Encounters Date Type Department Care Team (Latest Contact Info) Description 03/17/2024 9:30 AM EDT Laboratory Laboratory, [facility] [place] [address] [place] [facility] [place] [address] 03/18/2024 6:15 AM EDT Anticoagulation Centralized Clinical Pharmacy Services, Ruben Gilliam [address] [place] [address] [place] [address] [place] [address] [address] [facility] [place] [address] 05/15/2024 9:40 AM EDT Office Visit [facility] 132 [facility] [place] [address] Alicia Meyesr CRNP [address] [place] [address] 07/16/2024 10:47 AM EDT Hospital Encounter OR [facility], Operating Room, [facility] - 4th Floor 400 [place] [address] Viri Hightower MD [address] [place] [address] 07/16/2024 10:47 AM EDT - 07/16/2024 11:40 AM EDT Surgery OR [facility], Operating Room, [facility] - 4th Floor [address] [place] [address] Viri Hightower MD [address] [place] [address] COLONOSCOPY FLEXIBLE PROXIMAL DIAGNOSTIC 11/10/2024 8:20 AM EST Office Visit [facility] [address] [place] [phone] Campos Lange MD [address] [place] [address] Scheduled Procedures Name Priority Associated Diagnoses Date/Ti me COLONOSCOPY FLEXIBLE PROXIMAL DIAGNOSTIC Recall History of colon polyps 07/16/2024 10:47 AM EDT Health Maintenance Due Date Last Done Comments Cologuard 2001 Fecal Occult Blood Test 2001 Sigmoidoscopy 2001 Zoster Vaccines (1 of 2) 2006 Depression Screening 07/19/2021 07/19/2020 COVID-19 Vaccine ( season) 2023 09/24/2021, 11/18/2020, 10/23/2020 Colonoscopy 07/29/2023 07/29/2018, 07/18, 01/30/2007 Colorectal Cancer Screening 07/29/2023 CKD PHOS USE SMARTSET 93266 11/07/202310/19, 07/23/2019, 03/25/2014 CKD HGB USE SMARTSET 15623 04/30/202404/30, 04/30/2023, 11/07/2022, Additional history exists GFR [...] as of this encounter Visit Diagnoses Diagnosis HTN, goal below 130/80- Primary Unspecified essential hypertension Chronic heart failure with preserved ejection fraction (HCC) History of colon polyps Personal history of [...] and were consensually agreed upon. Care Teams Clerical Supervisor Relationship Specialty Start Date End Date Campos Lange MD [address] [place] [address] PCP - General Family Medicine 10/07/15 documented as of this encounter
--- OUTSIDE RECORDS SUMMARY | 2024-04-11 00:07 | External Medical Summary | Summary of Care ---
Author Name Unknown Organization [facility] Address [address] [place] [address] Phone [phone] Care Team Providers Care Precision Lens Generator Name Role Phone Campos Lange MD Primary Care Provider +1- [phone] Reason for Visit * Reason Onset Date Comments Order Request 02/07/2024 NPO Encounter Details Date Type Department Care Team (Late st Contact Info) Description 02/07/2024 Telephone Pulmonary Medicine, [facility] 132 [facility] [place] [address] Stan Romero MD [address] [facility] [id number] Order Request (NPO) Allergies No known active allergiesdocumented as of this encounter (statuses as of 02/12/2024) Medications Medication Sig Dispensed Refills Start Date End Date Status VITAMIN D 400 UNIT PO TABSIndications:Hyp ocalcemia 2 Tab Oral Daily qs 0 06/30/2009 Active Fluticasone Propionate 50 MCG/ACT Nasal Suspension (Flonase Allergy Relief) Administer 1 [place] into nostril in the morning. 15.8 mL 3 12/11/2022 Active Warfarin Sodium 10 MG Oral Tablet (Coumadin)Indicatio ns:History of pulmonary embolism TAKE 1 TAB BY [...] Active Amiodarone HCl 200 MG Oral Tablet (Cordarone)Indicati ons:PAF (paroxysmal atrial fibrillation) (HCC),Atrial fibrillation with rapid ventricular response (HCC) Take 1 Tablet by mouth in the morning. 90 Tablet 3 04/27/2023 Active Cetirizine HCl 10 MG Oral Tablet (ZyrTEC Allergy) Take 1 Tablet by mouth in the morning. Active Levothyroxine Sodium 175 MCG Oral Tablet (Levoxyl)Indication s:Malignant neoplasm of thyroid gland (HCC) TAKE 1 TABLET BY MOUTH IN THE MORNING. (AT LEAST 30 MIN PRIOR TO BREAKFAST OR OTHER MEDS). 90 Tablet 3 08/30/2023 Active Montelukast Sodium 10 MG Oral Tablet (Singulair)Indicati ons:Mild intermittent asthma with exacerbation Take 1 Tablet by mouth at bedtime. 90 Tablet 3 09/07/2023 Active Fluticasone Furoate-Vilanterol 200-25 MCG/ACT Inhalation Aerosol Powder Breath Activated (BREO ellipta) Inhale 1 Puff by mouth in the morning. 60 Blister Dosing Unit 3 11/28/2023 Active Omeprazole 20 MG Oral Capsule Delayed Release (PriLOSEC)Indicatio ns:Gastroesophageal reflux disease without esophagitis TAKE 1 CAPSULE EVERY DAY 1 HOUR BEFORE THE FIRST MEAL OF THE DAY 90 Capsule 3 12/05/2023 Active Fluticasone-Umeclid in-Vilant 200-62.5-25 MCG/ACT Aerosol Powder Breath Activated (Trelegy Ellipta) Inhale 1 Puff by mouth every evening. 60 Blister Dosing Unit 3 02/06/2024 Active hydrOXYzine HCl 10 MG Oral Tablet (Atarax) Take 1-2 tablets every 8 hours as needed for anxiety 60 Tablet 1 02/06/2024 Active Hospital, Clinic, or Other Facility Administered Medication Ordered Dose Route Frequency Start Date End Date Status Albuterol Sulfate (Proventil) (2.5 MG/3ML) 0.083% inhalation solution 2.5 mgIndications:Chronic cough 2.5 mg NEBULIZER PRN 03/23/2023 03/22/2024 Active Albuterol Sulfate (Proventil) (5 MG/ML) 0.5% *conc* inhalation solution 2.5 mgIndications:Chronic cough 2.5 mg NEBULIZER PRN 03/23/2023 03/22/2024 Active documented as of this encounter (statuses as of 02/12/2024) Active Problems Problem Noted Date Diagnosed Date [...] as of this encounter (statuses as of 02/12/2024) Resolved Problems Problem Noted Date Diagnosed Date [...] ROTATOR CUFF SYNDROME, RIGHT SHOULDER 04/05/2010 07/18/2019 shelter current use of ant icoagulant therapy 04/05/2010 [...] as of this encounter (statuses as of 02/12/2024) Immunizations Name Administration Dates Next Due COVID-19 mRNA, LNP-s, No Pre serve, 2-Dose Series (Moderna) 11/18/2020,10/23/2020 COVID-19, mRNA, LNP-s, PF, B ooster, 100mcg/0.5mg (Moderna) 09/24/2021 Pneumococcal Conjugate Vacci ne, 20-valent ([id number]) 11/07/2023 Pneumococcal Polysaccharide PPV23 (Pneumovax) 11/04/2021 Seasonal [...] encounter Miscellaneous Notes * Telephone Encounter - Jackie English LPN - 02/07/2024 10:52 AM EDT Pt's NPO order has been cx d/t the order being . Please reorder if the testing is still wanted documented in this encounter Plan of Treatment Upcoming Encounters Date Type Department Care Team (Latest Contact Info) Description 02/13/2024 8:20 AM EDT Office Visit [facility] [address] [place] [address] Alicia Meyers CRNP [address] [place] [address] 02/20/2024 10:10 AM EDT Laboratory Laboratory, [facility] [address] [place] [phone] [facility] [address] [place] [address] 02/21/2024 6:15 AM EDT [facility] [address] [facility] [place] [address] [facility] [address] [facility] [place] [address] 05/15/2024 9:40 AM EDT Office Visit [facility] [address] [place] [address] Alicia Meyers CRNP [address] [place] [address] 07/16/2024 11:46 AM EDT Hospital Encounter OR [facility], Operating Room, [facility] - 4th Floor [address] [place] [address] Viri Hightower MD [address] [place] [address] 07/16/2024 11:46 AM EDT - 07/16/2024 12:39 PM EDT Surgery OR [facility], Operating Room, [facility] - 4th Floor [address] [place] [address] Viri Hightower MD [address] [place] [address] COLONOSCOPY FLEXIBLE PROXIMAL DIAGNOSTIC 11/10/2024 8:20 AM EST Office Visit [facility] [address] [place] [facility] [place] [phone] Campos Lange MD [address] [place] [address] Scheduled Orders Name Type Priority Associated Diagnoses Orde r Schedule NOCTURNAL HOME OXIMETRY (OP) Procedures Routine Chronic respiratory failure with hypoxia (HCC) Ordered: 02/12/2024 Scheduled Procedures Name Priority Associated Diagnoses Date/Ti [...] Cancer Screening 07/29/2023 CKD PHOS USE SMARTSET 81924 11/07/202310/19, 07/23/2019, 03/25/2014 CKD HGB USE SMARTSET 49653 04/30/202404/30, 04/30/2023, 11/07/2022, Additional history exists GFR 05/07/2024 11/07/2023, 04/17, 03/02/2023, Additional history exists TSH 11/07/2024 11/07/2023, 04/17, 03/02/2023, Additional history exists Albumin/Creatinine Ratio 11/13/2024 11/13/2023, 10/19 Mammogram 02/05/2025 02/06/2024, 0504/2023, 01/22/2023, Additional history exists Diabetes Screening 11/07/2026 [...] as of this encounter Visit Diagnoses Diagnosis Chronic respiratory failure with hypoxia (HCC)- Primary Chronic respiratory failure History of colon polyps Personal history of [...] and were consensually agreed upon. Care Teams Precision Lens Generator Relationship Specialty Start Date End Date Campos Lange MD [address] [place] [address] PCP - General Family Medicine 10/07/15 documented as of this encounter
--- OUTSIDE RECORDS SUMMARY | 2024-04-11 00:07 | External Medical Summary | Summary of Care ---
Author Name Unknown Organization [facility] Address [address] [place] [address] Phone [phone] Care Team Providers Care Jewelry Enameler Name Role Phone Campos Lange MD Primary Care Provider +1- [phone] Reason for Visit * Reason Comments Dosage Adjustment Via Phone (anticoag Cl inic) Encounter Details Date Type Department Care Team (Latest Contact Info) Description 02/26/2024 6:10 AM EDT Anticoagulation Centralized Clinical Pharmacy Services, Ruben Gilliam [address] [place] [address] [place] [address] [facility] [address] [facility] [place] [address] History of pulmonary embolism* Allergies No known active allergiesdocumented as of this encounter (statuses as of 02/26/2024) Medications Medication Sig Dispensed Refills Start Date End Date Status VITAMIN D 400 UNIT PO TABSIndications:Hyp ocalcemia 2 Tab Oral Daily qs 0 06/30/2009 Active Fluticasone Propionate 50 MCG/ACT Nasal Suspension (Flonase Allergy Relief) Administer 1 [place] into nostril in the morning. 15.8 mL [...] as of this encounter (statuses as of 02/26/2024) Active Problems Problem Noted Date Diagnosed Date [...] as of this encounter (statuses as of 02/26/2024) Resolved Problems Problem Noted Date Diagnosed Date [...] ROTATOR CUFF SYNDROME, RIGHT SHOULDER 04/05/2010 07/18/2019 residential current use of ant icoagulant therapy 04/05/2010 [...] female at diagnosis s/p total thyroidectomy Ameya DO Karin Jun 25, 2009. Path report describes a [...] as of this encounter (statuses as of 02/26/2024) Immunizations Name Administration Dates Next Due COVID-19 mRNA, LNP-s, No Pre serve, 2-Dose Series (Moderna) 11/18/2020,10/23/2020 COVID-19, mRNA, LNP-s, PF, B ooster, 100mcg/0.5mg (Moderna) 09/24/2021 Pneumococcal Conjugate Vacci ne, 20-valent ([id number]) 11/07/2023 Pneumococcal Polysaccharide PPV23 (Pneumovax) 11/04/2021 Seasonal [...] as of this encounter Progress Notes * Ivania Martino RPh - 02/26/2024 10:12 AM EDT Agree with plan. Ivania Martino Rph, Pharm.D. Clinical Pharmacist Telepharmacy [phone] 02/26/2024,10:12 AM documented in this encounter Plan of Treatment Upcoming Encounters Date Type Department Care Team (Latest Contact Info) Description 05/15/2024 9:40 AM EDT Office Visit [facility] [address] [place] [address] Alicia Meyers CRNP [address] [place] [address] 07/16/2024 11:46 AM EDT Hospital Encounter OR [facility], Operating Room, [facility] - 4th Floor [address] [facility] [place] [address] Viri Hightower MD [address] [place] [address] 07/16/2024 11:46 AM EDT - 07/16/2024 12:39 PM EDT Surgery OR [facility], Operating Room, [facility] - 4th Floor [address] [facility] [place] [address] Viri Hightower MD [address] [place] [address] COLONOSCOPY FLEXIBLE PROXIMAL DIAGNOSTIC 11/10/2024 8:20 AM EST Office Visit [facility] [address] [place] [phone] Campos Lange MD [address] [place] [address] Scheduled Procedures Name Priority Associated Diagnoses Date/Ti [...] Cancer Screening 07/29/2023 CKD PHOS USE SMARTSET 40404 11/07/202310/19, 07/23/2019, 03/25/2014 CKD HGB USE SMARTSET 39984 04/30/202404/30, 04/30/2023, 11/07/2022, Additional history exists GFR [...] as of this encounter Visit Diagnoses Diagnosis History of pulmonary embolism- Primary Personal history of pulmonary embolism History of colon polyps Personal history of [...] and were consensually agreed upon. Care Teams Jewelry Enameler Relationship Specialty Start Date End Date Campos Lange MD [address] [place] [address] PCP - General Family Medicine 10/07/15 documented as of this encounter
--- OUTSIDE RECORDS SUMMARY | 2024-04-11 00:07 | External Medical Summary | Summary of Care ---
Author Name Unknown Organization [facility] Address [address] [place] [address] Phone [phone] Care Team Providers Care Neonatal Icu Coordinator Name Role Phone Campos Lange MD Primary Care Provider +1- [phone] Reason for Visit * Reason Comments Outpatient Testing Encounter Details Date Type Department Care Team (Late st Contact Info) Description 02/25/2024 9:30 AM EDT Laboratory Laboratory, [place] [address] [place] [phone] [place], Laboratory [address] [place] [address] History of pulmonary embolism Allergies No known active allergiesdocumented as of this encounter (statuses as of 02/25/2024) Medications Medication Sig Dispensed Refills Start Date End Date Status VITAMIN D 400 UNIT PO TABSIndications:Hyp ocalcemia 2 Tab Oral Daily qs 0 06/30/2009 Active Fluticasone Propionate 50 MCG/ACT Nasal Suspension (Flonase Allergy Relief) Administer 1 [place] into nostril in the morning. 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 Path report describes [...] as of this encounter (statuses as of 02/25/2024) Immunizations Name Administration Dates Next Due COVID-19 mRNA, LNP-s, No Pre serve, 2-Dose Series (Moderna) 11/18/2020,10/23/2020 COVID-19, mRNA, LNP-s, PF, B ooster, 100mcg/0.5mg (Moderna) 09/24/2021 Pneumococcal Conjugate Vacci ne, 20-valent ([id number]) 11/07/2023 Pneumococcal Polysaccharide PPV23 (Pneumovax) 11/04/2021 Seasonal [...] No 12/03/2014 documented as of this encounter Plan of Treatment Upcoming Encounters Date Type Department Care Team (Latest Contact Info) Description 02/28/2024 6:15 AM EDT [facility] Centralized Clinical Pharmacy Services, Ruben Gilliam [address] [place] [address] [place] [address] [facility] 58 60 [facility] [place] [address] 05/15/2024 9:40 AM EDT Office Visit Family [facility] [address] [place] [address] Alicia Meyers CRNP [address] [place] [address] 07/16/2024 11:46 AM EDT Hospital Encounter OR [facility], Operating Room, [facility] - 4th Floor [address] [place] [address] Viri Hightower MD [facility] [place] [address] 07/16/2024 11:46 AM EDT - 07/16/2024 12:39 PM EDT Surgery OR [facility], Operating Room, [facility] - 4th Floor [address] [place] [address] Viri Hightower MD [address] [place] [address] COLONOSCOPY FLEXIBLE PROXIMAL DIAGNOSTIC 11/10/2024 8:20 AM EST Office Visit [facility] [address] [place] [phone] Campos Lange MD [address] [place] [address] Pending Results Name Type Priority Associated Diagnoses Date /Time PT INR Lab Routine History of pulmonary embolism 02/25/2024 9:42 AM EDT Scheduled Procedures Name Priority Associated Diagnoses Date/Ti [...] Cancer Screening 07/29/2023 CKD PHOS USE SMARTSET 56116 11/07/202310/19, 07/23/2019, 03/25/2014 CKD HGB USE SMARTSET 01453 04/30/202404/30, 04/30/2023, 11/07/2022, Additional history exists GFR [...] encounter Visit Diagnoses Diagnosis History of pulmonary embolism Personal history of pulmonary embolism History of [...] and were consensually agreed upon. Care Teams Neonatal Icu Coordinator Relationship Specialty Start Date End Date Campos Lange MD [address] [place] [address] PCP - General Family Medicine 10/07/15 documented as of this encounter
--- OUTSIDE RECORDS SUMMARY | 2024-04-11 00:07 | External Medical Summary | Summary of Care ---
Author Name Unknown Organization [facility] Address [address] [place] [address] Phone [phone] Care Team Providers Care Fast Food Server Name Role Phone Alicia Meyers Nicci LACEY Primary Care Provider Reason for Visit * Reason Onset Date Comments Medication Refill 03/30/2024 Encounter Details Date Type Department Care Team (Late st Contact Info) Description 03/30/2024 Refill [facility] [address] [place] [address] Campos Lange MD [address] [place] [address] Allergies No known active allergiesdocumented as of this encounter (statuses as of 03/31/2024) Medications Medication Sig Dispensed Refills Start Date End Date Status VITAMIN D 400 UNIT PO TABSIndications:Hy pocalcemia 2 Tab Oral Daily qs 0 06/30/2009 Active Fluticasone Propionate 50 MCG/ACT Nasal Suspension (Flonase Allergy Relief) Administer 1 [place] into nostril in the morning. 15.8 mL 3 12/11/2022 Active Warfarin Sodium 10 MG Oral Tablet (Coumadin)Indicati ons:History of pulmonary embolism TAKE 1 TAB BY MOUTH DAILY. DIRECTED BY THE [facility] 90 Tablet 3 02/02/2023 Active Albuterol Sulfate 108 (90 Base) MCG/ACT Inhalation Aerosol Powder Breath Activated Inhale 2 Puffs by mouth every 4 hours. 1 Each 3 03/05/2023 Active Metoprolol Succinate ER 25 MG Oral [...] 02/06/2024 Active Furosemide 40 MG Oral Tablet (Lasix)Indications :HTN, goal below 130/80,Chronic heart failure with preserved ejection fraction (HCC) TAKE 1 TAB BY MOUTH DAILY. MAY TAKE A SECOND TAB DAILY NEEDED FOR WORSENING LEG SWELLING AND WEIGHT GAIN 135 Tablet 3 03/11/2024 Active amLODIPine Besylate 5 MG Oral Tablet (Norvasc) Take 1 Tablet by mouth in the morning. 90 Tablet 3 03/31/2024 Active amLODIPine Besylate 5 MG Oral Tablet (Norvasc) Take 1 Tablet by mouth in the morning. 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 Path report describes a [...] as of this encounter (statuses as of 03/31/2024) Immunizations Name Administration Dates Next Due COVID-19 mRNA, LNP-s, No Pre serve, 2-Dose Series (Moderna) 11/18/2020,10/23/2020 COVID-19, mRNA, LNP-s, PF, B ooster, 100mcg/0.5mg (Moderna) 09/24/2021 Pneumococcal Conjugate Vacci ne, 20-valent ([id number]) 11/07/2023 Pneumococcal Polysaccharide PPV23 (Pneumovax) 11/04/2021 Seasonal [...] Upcoming Encounters Date Type Department Care Team (Late st Contact Info) Description 04/01/2024 6:15 AM EDT Anticoagulation Centralized Clinical Pharmacy Services, Ruben Gilliam [address] [place] [address] [place] [address] [place] [address] 05/15/2024 9:40 AM EDT Office Visit Family Practice [facility] [address] [place] [address] Alicia Meyers CRNP [address] [place] [address] 07/16/2024 10:47 AM EDT Hospital Encounter OR [facility], Operating Room, [facility] - 4th Floor [address] [place] [address] Viri Hightower MD [address] [place] [address] 07/16/2024 10:47 AM EDT - 07/16/2024 11:40 AM EDT Surgery OR [facility], Operating Room, [facility] - 4th Floor [address] [place] [address] Viri Hightower MD [address] [place] [address] COLONOSCOPY FLEXIBLE PROXIMAL DIAGNOSTIC 11/10/2024 8:20 AM EST Office Visit [facility] [address] [place] [address] Campos Lnage MD [address] [place] [address] Scheduled Procedures Name Priority Associated Diagnoses Date/Ti [...] Cancer Screening 07/29/2023 CKD PHOS USE SMARTSET 45483 11/07/202310/19, 07/23/2019, 03/25/2014 CKD HGB USE SMARTSET 36228 04/30/202404/303, 04/30/2023, 11/07/2022, Additional history exists GFR 05/07/2024 11/07/2023, 04/17, 03/02/2023, Additional history exists Influenza Vaccine (FLU shot) (#1) 2024 11/07/2023, 09/06/2021, 07/19/2020, Additional history exists TSH 11/07/2024 11/07/2023, 04/17, [...] YRS AGES 18-100 Discontinued 07/29/2018, 07/29/2018, 01/30/2007 *BASELINE EKG FOR HTN Completed 03/02/2023 , 02/20/2023, 11/18/2014, Additional history exists Pneumococcal Vaccine: 65+ Years Completed 11/07/2023, 11/04/2021 HPV (Gardasil) Vaccine Aged Out No lo nger eligible based on patient's age to complete this topic Hepatitis B Vaccine Aged Out No longe r eligible based on patient's age to complete this topic MENINGOCOCCAL (MENACTRA/MENVEO) Aged Out No longer eligible based on patient's age to complete this topic documented as of this encounter Medical Devices Not on filedocumented as of this encounter Advance Directives * Full Code (Latest Code Status on File) Date Activated Date Inactivated Comments 12/03/2014 4:13 PM 12/04/2014 12:54 PM This order reflects the patients wishes and were consensually agreed upon. * Full Code Date Activated Date Inactivated Comments 06/22/2009 7:09 PM 07/01/2009 2:52 AM This order reflects the patients wishes and were consensually agreed upon. Care Teams Fast Food Server Relationship Specialty Start Date End Date Alicia Meyers CRNP [address] [place] [address] PCP - General Nurse Practitioner 03/30/24 documented as of this encounter
--- OUTSIDE RECORDS SUMMARY | 2024-04-11 00:07 | External Medical Summary | Summary of Care ---
Author Name Unknown Organization [facility] Address [address] [place] [address] Phone [phone] Care Team Providers Care Scientific Artist Name Role Phone Alicia Meyers Primary Care Provider Reason for Visit * Reason Comments eRx-Medication Refill Encounter Details Date Type Department Care Team (Late st Contact Info) Description 03/29/2024 Refill Family Practice [facility] [address] [facility] [address] Alicia Meyers CRNP [address] [facility] [place] [address] Allergies No known active allergiesdocumented as of this encounter (statuses as of 03/31/2024) Medications Medication Sig Dispensed Refills Start Date End Date Status VITAMIN D 400 UNIT PO TABSIndications:Hyp ocalcemia 2 Tab Oral Daily qs 0 06/30/2009 Active Fluticasone Propionate 50 MCG/ACT Nasal Suspension (Flonase Allergy Relief) Administer 1 [place] into nostril in the morning. 15.8 mL [...] 02/06/2024 Active Furosemide 40 MG Oral Tablet (Lasix)Indications: HTN, goal below 130/80,Chronic heart failure with preserved ejection fraction (HCC) TAKE 1 TAB BY MOUTH DAILY. MAY TAKE A SECOND TAB DAILY NEEDED FOR WORSENING LEG SWELLING AND WEIGHT GAIN 135 Tablet 3 03/11/2024 Active documented as of this encounter (statuses [...] CUFF SYNDROME, RIGHT SHOULDER 04/05/2010 07/18/2019 intermediate current use of ant icoagulant therapy 04/05/2010 [...] (Moderna) 09/24/2021 Pneumococcal Conjugate Vacci ne, 20-valent ([id number]) 11/07/2023 Pneumococcal Polysaccharide PPV23 (Pneumovax) 11/04/2021 Seasonal [...] encounter Miscellaneous Notes * Telephone Encounter - Ivan Connolly RPh - 03/31/2024 1:14 PM EDTRefused Prescriptions: Disp Refills amLODIPine Besylate 5 MG Oral Tablet (Norv*90 Tab*3 Sig: TAKE 1TABLET BY MOUTH EVERY DAY IN THE MORNINGRefused By: IVAN CONNOLLY for Refusal: Duplicate Request documented in this encounter Plan of Treatment Upcoming Encounters Date Type Department Care Team (Late st Contact Info) Description 04/01/2024 6:15 AM EDT Anticoagulation Centralized Clinical Pharmacy Services, Ruben Gilliam [address] [place] [address] [place] [address] [place] [address] 05/15/2024 9:40 AM EDT Office Visit [facility] [address] [place] [address] Alicia Meyers CRNP [address] [place] [address] 07/16/2024 10:47 AM EDT Hospital Encounter OR [facility], Operating Room, [facility] - 4th Floor [address] [facility] [place] [address] Viri Hightower MD [address] [place] [address] 07/16/2024 10:47 AM EDT - 07/16/2024 11:40 AM EDT Surgery OR [facility], Operating Room, [facility] - [facility] Floor 400 [facility] [place] [address] Viri Hightower MD [address] [place] [address] COLONOSCOPY FLEXIBLE PROXIMAL DIAGNOSTIC 11/10/2024 8:20 AM EST Office Visit [facility] [address] [place] [address] Campos Lange MD [address] [place] [address] Scheduled Procedures Name Priority Associated Diagnoses Date/Ti [...] Cancer Screening 07/29/2023 CKD PHOS USE SMARTSET 50688 11/07/202310/19, 07/23/2019, 03/25/2014 CKD HGB USE SMARTSET 08280 04/30/202404/30, 04/30/2023, 11/07/2022, Additional history exists GFR 05/07/2024 11/07/2023, 04/17, 03/02/2023, Additional history exists Influenza Vaccine (FLU shot) (#1) 2024 11/07/2023, 09/06/2021, 07/19/2020, Additional history exists TSH 11/07/2024 11/07/2023, 04/17, 03/02/2023, Additional history exists Albumin/Creatinine Ratio 11/13/2024 11/13/2023, 10/19 Mammogram 02/05/2025 02/06/2024, 050 04/2023, 01/22/2023, Additional history exists Diabetes Screening [...] and were consensually agreed upon. Care Teams Scientific Artist Relationship Specialty Start Date End Date Alicia Meyers CRNP [address] [place] [address] PCP - General Nurse Practitioner 03/30/24 documented as of this encounter
--- OUTSIDE RECORDS SUMMARY | 2024-04-11 00:07 | External Medical Summary | Summary of Care ---
Author Name Unknown Organization [facility] Address [address] [place] [address] Phone [phone] Care Team Providers Care Charge Coordinator Name Role Phone Campos Lange MD Primary Care Provider +1- [phone] Reason for Visit * Reason Onset Date Comments Order Request 02/07/2024 NPO Encounter Details Date Type Department Care Team (Late st Contact Info) Description 02/07/2024 Telephone Pulmonary Medicine, [facility] 132 [facility] [place] [address] Stan Romero [facility] [address] [facility] [phone] Order Request (NPO) Allergies No known active allergiesdocumented as of this encounter (statuses as of 02/13/2024) Medications Medication Sig Dispensed Refills Start Date End Date Status VITAMIN D 400 UNIT PO TABSIndications:Hyp ocalcemia 2 Tab Oral Daily qs 0 06/30/2009 Active Fluticasone Propionate 50 MCG/ACT Nasal Suspension (Flonase Allergy Relief) Administer 1 [place] into nostril in the morning. 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 Please reorder if the testing is still wanted documented in this encounter Plan of Treatment Upcoming Encounters Date Type Department Care Team (Latest Contact Info) Description 02/20/2024 10:10 AM EDT Laboratory Laboratory, [facility] [address] [place] [address] [facility] [address] [place] [address] 02/21/2024 6:15 AM EDT [facility] Call Center [address] [facility] [place] [address] [facility] [address] [facility] [place] [address] 05/15/2024 9:40 AM EDT Office Visit Family Practice [facility] [address] [place] [address] Alicia Meyres CRNP [address] [place] [address] 07/16/2024 11:46 AM EDT Hospital Encounter OR [facility], Operating Room, [facility] - 4th Floor 400 [facility] [place] [address] Viri Hightower MD [address] [place] [address] 07/16/2024 11:46 AM EDT - 07/16/2024 12:39 PM EDT Surgery OR [facility], Operating Room, [facility] - 4th Floor 400 [place] [address] Viri Hightower MD [address] [place] [address] COLONOSCOPY FLEXIBLE PROXIMAL DIAGNOSTIC 11/10/2024 8:20 AM EST Office Visit [facility] [address] [place] [address] Campos Lange MD [address] [place] [address] Scheduled Orders Name Type Priority Associated Diagnoses [...] Cancer Screening 07/29/2023 CKD PHOS USE SMARTSET 45353 11/07/202310/19, 07/23/2019, 03/25/2014 CKD HGB USE SMARTSET 01649 04/30/202404/30, 04/30/2023, 11/07/2022, Additional history exists GFR [...] and were consensually agreed upon. Care Teams Charge Coordinator Relationship Specialty Start Date End Date Campos Lange MD [address] [place] [address] PCP - General Family Medicine 10/07/15 documented as of this encounter
--- OUTSIDE RECORDS SUMMARY | 2024-04-11 00:08 | External Medical Summary | Summary of Care ---
Author Name Unknown Organization [facility] Address [address] [place] [address] Phone [phone] Care Team Providers Care Lead Enterprise Architect Name Role Phone Campos Lange MD Primary Care Provider +1- [phone] Reason for Visit * Reason Comments Outpatient Testing Encounter Details Date Type Department Care Team (Late st Contact Info) Description 01/02/2024 10:00 AM EDT Laboratory Laboratory, [place] [address] [place] [address] [place], Laboratory [address] [place] [address] History of pulmonary embolism Allergies No known active allergiesdocumented as of this encounter (statuses as of 01/02/2024) Medications Medication Sig Dispensed Refills Start Date End Date Status VITAMIN D 400 UNIT PO TABSIndications:Hyp ocalcemia 2 Tab Oral Daily qs 0 06/30/2009 Active Fluticasone Propionate 50 MCG/ACT Nasal Suspension (Flonase Allergy Relief) Administer 1 [place] into nostril in the morning. 15.8 mL [...] Oral Tablet (Cordarone)Indicati ons:PAF (paroxysmal atrial fibrillation) ([facility]),Atrial fibrillation with rapid ventricular response (HCC) Take 1 Tablet by mouth in the morning. 90 Tablet 3 04/27/2023 Active Cetirizine HCl 10 MG Oral Tablet (ZyrTEC Allergy) Take 1 Tablet by mouth in the morning. 0 Active Levothyroxine Sodium 175 MCG Oral Tablet [...] THE DAY 90 Capsule 3 12/05/2023 Active Hospital, Clinic, or Other Facility Administered Medication Ordered Dose Route Frequency Start Date End Date Status Albuterol Sulfate (Proventil) (2.5 MG/3ML) 0.083% inhalation solution 2.5 mgIndications:Chronic cough 2.5 mg NEBULIZER PRN 03/23/2023 03/22/2024 Active Albuterol Sulfate (Proventil) (5 MG/ML) 0.5% *conc* inhalation solution 2.5 mgIndications:Chronic cough 2.5 mg NEBULIZER PRN 03/23/2023 03/22/2024 Active documented as of this encounter (statuses as of 01/02/2024) Active Problems Problem Noted Date Diagnosed Date Mild persistent asthma without complication 11/15 Chronic cough 11/28/2023 Hypertensive heart and kidne [...] as of this encounter (statuses as of 01/02/2024) Resolved Problems Problem Noted Date Diagnosed Date Resolved Date Morbid obesity with BMI of 40.0-44.9, adult [...] ROTATOR CUFF SYNDROME, RIGHT SHOULDER 04/05/2010 07/18/2019 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 04/05/2010 [...] as of this encounter (statuses as of 01/02/2024) Immunizations Name Administration Dates Next Due COVID-19 mRNA, LNP-s, No Pre serve, 2-Dose Series (Moderna) 11/18/2020,10/23/2020 COVID-19, mRNA, LNP-s, PF, B ooster, 100mcg/0.5mg (Moderna) 09/24/2021 Pneumococcal Conjugate Vacci ne, 20-valent ([id number]) 11/07/2023 Pneumococcal Polysaccharide PPV23 (Pneumovax) 11/04/2021 Seasonal [...] Care Team (Late st Contact Info) Description 01/03/2024 6:15 AM EDT Anticoagulation Pharmacy Call Center [address] [facility] [place] [address] [facility] 58 60 [facility] [place] [address] 01/24/2024 9:20 AM EDT Office Visit [facility] [address] [place] [address] Alicia Meyers CRNP [address] [place] [address] 02/06/2024 9:00 AM EDT Imaging Radiology [facility] 1st Floor, [place] [address] [place] [address] 02/06/2024 10:00 AM EDT Office Visit Family [facility] [address] [place] [address] Alicia Meyers, TOWEL SORTER [address] [place] [address] 11/10/2024 8:20 AM EST Office Visit [facility] [address] [facility] [address] Campos Lange MD [address], [place] [address] Pending Results Name Type Priority Associated Diagnoses Date /Time PT INR Lab Routine History of pulmonary embolism 01/02/2024 9:58 AM EDT Scheduled Procedures Name Priority Associated Diagnoses Date/Ti me COLONOSCOPY FLEXIBLE PROXIMAL DIAGNOSTIC Recall History of colon polyps Health Maintenance Due Date Last Done Comments Zoster Vaccines (1 of 2) 2006 Depression Screening 07/19/2021 07/19/2020 COVID-19 Vaccine ( season) 2023 09/24/2021, 11/18/2020, 10/23/2020 COLONOSCOPY-EVERY 5 YRS AGES 18-100 07/29/2023 07/29/2018, 07/29/2018, 01/30/2007 CKD PHOS USE SMARTSET 74288 11/07/202310/19, 07/23/2019, 03/25/2014 Mammogram 01/23/2024 01/22/2023, 0504/2023, 01/03/2022, Additional history exists CKD HGB USE SMARTSET 64983 04/30/202404/30, 04/30/2023, 11/07/2022, Additional history exists GFR 05/07/2024 11/07/2023, 04/17, 03/02/2023, Additional history exists TSH 11/07/2024 11/07/2023, 04/17, 03/02/2023, Additional history exists Albumin/Creatinine Ratio 11/13/2024 11/13/2023, 10/19 Diabetes Screening 11/07/2026 11/07/2023, 0 04/27/2023, 03/02/2023, Additional history exists Lipid Panel 11/07/2027 11/07/2022, 02/15, 09/27/2020, Additional history exists DXA Scan 12/06/2029 12/06/2022, 11/16, 04/16/2013 DTaP,Tdap,and Td Vaccines (3 - Td or Tdap) 11/04/2031 11/04/2021, 04/20/2011, 01/20/2002 Pap Smear Discontinued 08/19/2014, 11/2013, 04/03/2013, Additional history exists Influenza Vaccine (FLU shot) Completed 11/07/2023, 09/06/2021, [...] pulmonary embolism Personal history of pulmonary embolism documented in this encounter Advance Directives Latest Code Status on File Code Status Date Activated Date Inactivated Comments Full Code 12/03/2014 4:13 PM 12/04/2014 12:54 PM This order reflects the patients wishes and were consensually agreed upon. Code Status History Code Status Date Activated Date Inactivated Comments Full Code 06/22/2009 7:09 PM 07/01/2009 2:52 AM This order reflects the patients wishes and were consensually agreed upon. Care Teams Lead Enterprise Architect Relationship Specialty Start Date End Date Campos Lange MD [address] [place] [address] PCP - General Family Medicine 10/07/15 documented as of this encounter
--- OUTSIDE RECORDS SUMMARY | 2024-04-11 00:08 | External Medical Summary | Summary of Care ---
Author Name Unknown Organization [facility] Address [address] [place] [address] Phone [phone] Care Team Providers Care Ice Cream Van Vendor Name Role Phone Campos Lange MD Primary Care Provider +1- [phone] Reason for Visit * Reason Comments Follow Up Encounter Details Date Type Department Care Team (Late st Contact Info) Description 02/06/2024 10:00 AM EDT Office Visit [facility] [address] [facility] [place] [address] Alicia Meyers CRNP [address] [facility] [address] Moderate persistent asthma without complication*; Chronic heart failure with preserved ejection fraction (HCC); HTN, goal below 130/80; PAF (paroxysmal atrial fibrillation) ([facility]); Hypothyroidism, postablative; Chronic cough; Acute reaction to situational stress; BMI 45.0-49.9, adult ([facility]); Gastro-esophageal reflux disease without esophagitis Allergies No known active allergiesdocumented as of this encounter (statuses as of 02/07/2024) Medications Medication Sig Dispensed Refills Start Date End Date Status VITAMIN D 400 UNIT PO TABSIndications:Hyp ocalcemia 2 Tab Oral Daily qs 0 06/30/2009 Active Fluticasone Propionate 50 MCG/ACT Nasal Suspension (Flonase Allergy Relief) Administer 1 Grafton into nostril in the morning. 15.8 mL [...] as of this encounter (statuses as of 02/07/2024) Active Problems Problem Noted Date Diagnosed Date [...] as of this encounter (statuses as of 02/07/2024) Resolved Problems Problem Noted Date Diagnosed Date [...] female at diagnosis s/p total thyroidectomy Ameya Box DO Jun 25, 2009. Path report [...] as of this encounter (statuses as of 02/07/2024) Immunizations Name Administration Dates Next Due COVID-19 mRNA, LNP-s, No Pre serve, 2-Dose Series (Moderna) 11/18/2020,10/23/2020 COVID-19, mRNA, LNP-s, PF, B ooster, 100mcg/0.5mg (Moderna) 09/24/2021 Pneumococcal Conjugate Vacci ne, 20-valent ([id number]) 11/07/2023 Pneumococcal Polysaccharide PPV23 (Pneumovax) 11/04/2021 Seasonal [...] Sign Reading Time Taken Comments Blood Pressure 138/72 02/06/2024 9:44 AM EDT Pulse 69 02/06/2024 9:44 AM EDT Temperature - - Respiratory Rate - - Oxygen Saturation - - Inhaled Oxygen Concentration - - Weight 124.1 kg (273 lb 8 oz) 02/06/2024 9:44 AM EDT Height - - Body Mass Index 45.51 11/28/2023 7:05 AM EDT documented in this encounter Functional Status Functional [...] Progress Notes * Alicia Meyers CRNP - 02/06/2024 10:09 AM EDT FOLLOW UP History of Present Illness: Taylor Kraft is a 68 year old female presenting for follow up of chronic cough. Started breo 200 3 months ago. She is most comfortable when she sleeps in recliner. Cough is about 50-60% improved from origianal Interim History: Cough is still keeping her up at night Worse when laying on her side Feels cough is less severe. Using albuterone 1-2 times per day. Respiratory Symptoms: Cough: still present but less severe Sputum: productive occasional Dyspnea:improved on breo Hemoptysis: DENIES Wheeze: SOMETIMES AT NIGHT Triggers: exertion, laying on back. Worse in [place] Orthopnea: denies Oxygen: denies CPAP/BIPAP use:denies GERD symptoms:denies Sinus Symptoms :PND controlled with singulair and zyrtec Tobacco use: Social History Tobacco Use Smoking Status Never Smokeless Tobacco Never PMH: Patient Active Problem List Diagnosis Morbidly obese (HCC) History of pulmonary embolism Hypothyroidism, postablative Stage 3a chronic kidney disease History of thyroid cancer Oropharyngeal dysphagia Hilar adenopathy PAF (paroxysmal atrial fibrillation) (HCC) Chronic heart failure with preserved ejection fraction (HCC) HTN, goal below 130/80 Mild persistent asthma without complication Chronic cough Hypertensive heart and kidney disease with chronic diastolic congestive heart failure and stage 3a chronic kidney disease (HCC) Current Outpatient Medications Medication Sig Dispense Refill VITAMIN D 400 UNIT PO TABS 2 Tab Oral Daily qs 0 Fluticasone Propionate 50 MCG/ACT Nasal Suspension (Flonase Allergy Relief) Administer 1 Grafton intonostril in the morning. 15.8 mL 3 Warfarin Sodium 10 MG Oral Tablet (Coumadin) TAKE 1 TAB BY MOUTH DAILY. DIRECTED BY THE COUMADINCLINIC 90 Tablet 3 Furosemide 40 MG Oral Tablet (Lasix) Take one tab by mouth daily (40mg) and ok to take a second tabdaily by mouth as needed for worsening leg swelling and weight gain 60 Tablet 11 Albuterol Sulfate 108 (90 Base) MCG/ACT Inhalation Aerosol Powder Breath Activated Inhale 2 Puffs by mouth every 4 hours. 1 Each 3 amLODIPine Besylate 5 MG Oral Tablet (Norvasc) Take 1 Tablet by mouth in the morning. 90 Tablet 3 Metoprolol Succinate ER 25 MG Oral Tablet Extended Release 24 Hour (toPROL XL) Take 1 Tablet by mouth in the morning. 90 Tablet 3 Amiodarone HCl 200 MG Oral Tablet (Cordarone) Take 1 Tablet by mouth in the morning. 90 Tablet 3 Cetirizine HCl 10 MG Oral Tablet (ZyrTEC Allergy) Take 1 Tablet by mouth in the morning. Levothyroxine Sodium 175 MCG Oral Tablet (Levoxyl) TAKE 1 TABLET BY MOUTH IN THE MORNING. (AT LEAST30 MIN PRIOR TO BREAKFAST OR OTHER MEDS). 90 Tablet 3 Montelukast Sodium 10 MG Oral Tablet (Singulair) Take 1 Tablet by mouth at bedtime. 90 Tablet 3 Fluticasone Furoate-Vilanterol 200-25 MCG/ACT Inhalation Aerosol Powder Breath Activated (BREO ellipta) Inhale 1 Puff by mouth in the morning. 60 Blister Dosing Unit 3 Omeprazole 20 MG Oral Capsule Delayed Release (PriLOSEC) TAKE 1 CAPSULE EVERY DAY 1 HOUR BEFORE THEFIRST MEAL OF THE DAY 90 Capsule 3 Current Facility-Administered Medications Medication Dose Route Frequency Provider Last Rate Last Admin Albuterol Sulfate (Proventil) (2.5 MG/3ML) 0.083% inhalation solution 2.5 mg 2.5 mg Nebulizer PRN RhedAlicia CRNP Albuterol Sulfate (Proventil) (5 MG/ML) 0.5% *conc* inhalation solution 2.5 mg 2.5 mg Nebulizer PRNRAlicia bautista CRNP 2.5 mg at 10/16/23 0753 Review of patient's allergies indicates: No Known Allergies Past Surgical History: Procedure Laterality Date COLONOSCOPY W/ BIOPSY (RECTUM) 01/30/07 path-normal, repeat 2017 COLONOSCOPY, DIAGNOSTIC (RECTUM) 07/29/2018 adenomatous polyp, diverticulosis, repeat 5 yrs/COLONOSCOPY FLEXIBLE PROXIMAL DIAGNOSTIC performed by Anali James MD at ENDOSCOPY [facility] FOLLOWUP THYROID SURGERY Left 12/03/2014 THYROIDECTOMY FOLLOWING PREVIOUS REMOVAL PORTION THYROID performed by Gurmeet Sood MD at [facility] INFORMATION labor and del x2 LIGATE/CUT OVIDUCT(S) PARATHYROID AUTOTRANSPLANTATION 06/25/09 PARATHYROID AUTOTRANSPLANTATION performed by AMEYA BOX at [facility] REMOVAL OF NECK LYMPH NODES Left 11/10/2015 lymph node dissection for thyroid cancer REMOVAL OF THYROID FOR TUMOR 06/25/09 THYROIDECTOMY WITH LIMITED NECK DISSECTION performed by AMEYA BOX at [facility] TREATMENT OF INCOMPLETE x6 including tubl preg post tubal lig Review of Systems: Review of Systems Constitutional: Negative for fatigue and fever. Respiratory: Positive for cough, shortness of breath and wheezing. Negative for chest tightness. Gastrointestinal: Negative for abdominal pain. Neurological: Negative for syncope. Psychiatric/Behavioral: Positive for sleep disturbance. Negative for agitation. The patient is nervous/anxious. Physical Exam: BP 138/72 | Pulse 69 | Wt 124.1 kg (273 lb 8 oz) | LMP 12/12/2006 | BMI 45.51 kg/m | BSA 2.39 m Physical Exam Constitutional: Appearance: She is obese. HENT: Head: Normocephalic. Nose: Nose normal. Mouth/Throat: Mouth: Mucous membranes are moist. Pharynx: Oropharynx is clear. Eyes: Conjunctiva/sclera: Conjunctivae normal. Pupils: Pupils are equal, round, and reactive to light. Cardiovascular: Rate and Rhythm: Normal rate and regular rhythm. Pulmonary: Effort: Pulmonary effort is normal. Breath sounds: Normal breath sounds. Musculoskeletal: General: Normal range of motion. Cervical back: Normal range of motion. Skin: General: Skin is warm and dry. Nails: There is no clubbing. Neurological: General: No focal deficit present. Mental Status: She is alert and oriented to person, place, and time. Psychiatric: Mood and Affect: Mood normal. Behavior: Behavior normal. Thought Content: Thought content normal. Judgment: Judgment normal. Assessment and Plan: 1. Moderate persistent asthma without complication STILL WITH DAILY COUGH FEELS ABOUT 50% improved Still disrupting sleep Change to Trelegy 200 Stop breo Continue albuterol 2. Chronic heart failure with preserved ejection fraction (HCC) WEIGHT IS STABLE LEG SWELLING STABLE 3. HTN, goal below 130/80 STABLE 4. PAF (paroxysmal atrial fibrillation) ([facility]) RATE CONTROLLED 5. Hypothyroidism, postablative STABLE 6. Chronic cough ONGOING 7. Acute reaction to situational stress ADD HYDROXIZINE I have advised the patient to call our office incase of any worsening or new symptoms. I spent a total of 40-54 minutes (exact time 40 mins) on the date of service in preparation, delivery, and documentation of the care provided to Taylor Kraft excluding any time spent in the performance of separately billed services. Janet, MSN, D[facility]I [facility] Pulmonary and Sleep Medicine documented in this encounter Plan of Treatment Upcoming Encounters Date Type Department Care Team (Late st Contact Info) Description 02/20/2024 10:10 AM EDT Laboratory Laboratory, [facility] [address] [facility] [place] [phone] [facility] [address] [facility] [place] [address] 02/21/2024 6:15 AM EDT Anticoagulation Pharmacy Call Center [address] [place] [address] [facility] [address] [place] [address] 05/15/2024 9:40 AM EDT Office Visit [facility] [address] [facility] [place] [address] Alicia Meyers CRNP [facility] [place] [address] 11/10/2024 8:20 AM EST Office Visit [facility] [address] [place] [phone] Campos Lange MD [address] [place] [facility] [place] [address] Scheduled Procedures Name Priority Associated Diagnoses Date/Ti me COLONOSCOPY FLEXIBLE PROXIMAL DIAGNOSTIC Recall History of colon polyps Health Maintenance Due Date Last Done Comments Cologuard 2001 Fecal Occult Blood Test 2001 Sigmoidoscopy 2001 Zoster Vaccines (1 of 2) 2006 Depression Screening 07/19/2021 07/19/2020 COVID-19 Vaccine (4 - 2022- season) 2023 09/24/2021, 11/18/2020, 10/23/2020 Colonoscopy 07/29/2023 07/29/2018, 07/18, 01/30/2007 Colorectal Cancer Screening 07/29/2023 CKD PHOS USE SMARTSET 21853 11/07/202310/19, 07/23/2019, 03/25/2014 Mammogram 01/23/2024 01/22/2023, 04/2023, 01/03/2022, Additional history exists CKD HGB USE SMARTSET 02523 04/30/202404/30, 04/30/2023, 11/07/2022, Additional history exists GFR [...] 11/04/2021, 04/20/2011, 01/20/2002 Pap Smear Discontinued 08/19/2014, 1211/2013, 04/03/2013, Additional history exists RETIRED - COLONOSCOPY-EVERY [...] encounter Visit Diagnoses Diagnosis Moderate persistent asthma without complication- Primary Unspecified asthma Chronic heart failure with preserved ejection fraction (HCC) HTN, goal below 130/80 Unspecified essential hypertension PAF (paroxysmal atrial fibrillation) (HCC) Atrial fibrillation Hypothyroidism, postablative Other postablative hypothyroidism Chronic cough Cough Acute reaction to situational stress BMI 45.0-49.9, adult (HCC) Body Mass Index 45.0-49.9, adult Gastro-esophageal reflux disease without esophagitis Esophageal reflux documented in this encounter Advance Directives * Full Code (Latest Code Status on File) Date Activated Date Inactivated Comments 12/03/2014 4:13 PM 12/04/2014 12:54 PM This order reflects the patients wishes and were consensually agreed upon. * Full Code Date Activated Date Inactivated Comments 06/22/2009 7:09 PM 07/01/2009 2:52 AM This order reflects the patients wishes and were consensually agreed upon. Care Teams Ice Cream Van Vendor Relationship Specialty Start Date End Date Campos Lange MD [address] [place] [address] PCP - General Family Medicine 10/07/15 documented as of this encounter"
--- OUTSIDE RECORDS SUMMARY | 2024-04-11 00:08 | External Medical Summary ---
Author Name Unknown Address Unknown Organization K01:[facility] [address] [place] [address] Laboratory Report Ordering Provider Test Date Status MARLENE COVARRUBIAS 01/16/2024 10:23:41 Final Please draw PT/INR every 1-4 weeks or as requested by the [facility] Coumadin Clinic

Warfarin Therapy
INR: 2.0-3.0 conventional anticoagulation
INR: 2.5-3.5 high intensity anticoagulation Observation Date Value Abnormality Reference (Units ) Status PT 01/16/2024 10:23:41 25.9 Above high normal 11 .6-15.2 (seconds) Final INR 01/16/2024 10:23:41 2.3 Above high normal 0. 8-1.2 Final Performing Location [facility] [address] [place] [address]
--- OUTSIDE RECORDS SUMMARY | 2024-04-11 00:08 | External Medical Summary | Summary of Care ---
Author Name Unknown Organization [facility] Address [address] [place] [address] Phone [phone] Care Team Providers Care Weighing Station Operator Name Role Phone Campos Lange MD Primary Care Provider +1- [phone] Reason for Visit * Reason Comments Dosage Adjustment Via Phone (anticoag Cl inic) Encounter Details Date Type Department Care Team (Latest Contact Info) Description 01/17/2024 6:15 AM EDT Anticoagulation Pharmacy Call Center [address] [place] [address] [facility] [address] [place] [address] History of pulmonary embolism* Allergies No known active allergiesdocumented as of this encounter (statuses as of 01/17/2024) Medications Medication Sig Dispensed Refills Start Date End Date Status VITAMIN D 400 UNIT PO TABSIndications:Hyp ocalcemia 2 Tab Oral Daily qs 0 06/30/2009 Active Fluticasone Propionate 50 MCG/ACT Nasal Suspension (Flonase Allergy Relief) Administer 1 Perry into nostril in the morning. 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 Clinical Pharmacist [facility] ([facility]) (formerly Telepharmacy) [phone] 01/17/2024,4:03 PM * Ivania Hendrix CPhT - 01/17/2024 3:05 PM EDT Contacts Type Contact Phone/Fax 01/17/2024 11:42 AM EDT Phone (Outgoing) Taylor Kraft (Self) [phone] (M) No Answer/Busy - VM is full. 01/17/2024 01:40 PM EDT Phone (Outgoing) Taylor Kraft (Self) [phone] (M) No Answer/Busy - Vm is full 01/17/2024 01:42 PM EDT Email (Outgoing) Taylor Kraft (Self) MYG sent 01/17/2024 03:05 PM EDT Phone (Outgoing) Taylor Kraft (Self) [phone] (M) No Answer/Busy - VM is full Unable to reach pt or ER contact. MyG message sent. Ivania Hendrix CPhT 01/17/2024, 3:05 PM * Ivania Martino RPh - 01/17/2024 9:21 AM EDT Coumadin Clinic (region specific) Objective Current Warfarin Dose As of 01/17/2024 Warfarin maintenance plan: 5 mg (10 mg x 0.5) every Mon, Fri; 10 mg (10 mg x 1) all other days INR Result As of 01/17/2024 INR goal: 2.0-3.0 INR used for dosin.3 (01/16/2024) Assessment & Plan Warfarin Plan As of 01/17/2024 Full warfarin instructions: 5 mg every Mon, Fri; 10 mg all other days No change documented: Ivania Martino RPh Next INR check: 01/30/2024 Repeat PT/INR in 2 week(s) Weekly dose: not changed Additional Dosing Information: Description [employer] [place] [employer] started 03/09/23 Tech to contact patient with dose instructions as noted. Ivania Martino RPh 01/17/2024, 9:21 AM documented in this encounter Plan of Treatment Upcoming Encounters Date Type Department Care Team (Late st Contact Info) Description 01/18/2024 6:15 AM EDT Anticoagulation Pharmacy Call Center [address] [place] [address] [facility], [facility] [address] [facility] [place] [address] 01/30/2024 10:00 AM EDT Laboratory Laboratory, [facility] [address] [facility] [phone] [facility]azoVidhi garcia [facility] [address] [place] [address] 01/31/2024 6:15 AM EDT Anticoagulation Pharmacy Call Center [address] [facility] [place] [address] [facility], [facility] [address] [facility] [place] [address] 02/06/2024 9:00 AM EDT Imaging Radiology [facility] [address] [place] [address] 02/06/2024 10:00 AM EDT Office Visit Family Practice [facility] [address] [facility] [address] Alicia Meyers CRNP 132 [place] [address] 11/10/2024 8:20 AM EST Office Visit [facility] [address] [place] [phone] Campos Lange MD [address] [place] [address] Scheduled Procedures Name Priority Associated Diagnoses Date/Ti [...] Cancer Screening 07/29/2023 CKD PHOS USE SMARTSET 64393 11/07/202310/19, 07/23/2019, 03/25/2014 Mammogram 01/23/2024 01/22/2023, 04/2023, 01/03/2022, Additional history exists CKD HGB USE SMARTSET 43642 04/30/202404/30, 04/30/2023, 11/07/2022, Additional history exists GFR [...] embolism- Primary Personal history of pulmonary embolism documented in [...] and were consensually agreed upon. Care Teams Weighing Station Operator Relationship Specialty Start Date End Date Campos Lange MD [address] [place] [address] PCP - General Family Medicine 10/07/15 documented as of this encounter
--- OUTSIDE RECORDS SUMMARY | 2024-04-11 00:08 | External Medical Summary | Summary of Care ---
Author Name Unknown Organization [facility] Address [address] [place] [address] Phone [phone] Care Team Providers Care Occupational Therapy Co Director Name Role Phone Campos Lange MD Primary Care Provider +1- [phone] Reason for Visit * Reason Comments Dosage Adjustment Via Phone (anticoag Cl inic) Encounter Details Date Type Department Care Team (Latest Contact Info) Description 01/18/2024 6:15 AM EDT Anticoagulation Pharmacy Call Center [address] [place] [address] [facility] [address] [place] [address] History of pulmonary embolism* Allergies No known active allergiesdocumented as of this encounter (statuses as of 01/18/2024) Medications Medication Sig Dispensed Refills Start Date End Date Status VITAMIN D 400 UNIT PO TABSIndications:Hyp ocalcemia 2 Tab Oral Daily qs 0 06/30/2009 Active Fluticasone Propionate 50 MCG/ACT Nasal Suspension (Flonase Allergy Relief) Administer 1 Rogers into nostril in the morning. 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 04/05/2010 [...] as of this encounter (statuses as of 01/18/2024) Immunizations Name Administration Dates Next Due COVID-19 mRNA, LNP-s, No Pre serve, 2-Dose Series (Moderna) 11/18/2020,10/23/2020 COVID-19, mRNA, LNP-s, PF, B ooster, 100mcg/0.5mg (Moderna) 09/24/2021 Pneumococcal Conjugate Vacci ne, 20-valent ([id number]) 11/07/2023 Pneumococcal Polysaccharide PPV23 (Pneumovax) 11/04/2021 Seasonal [...] as of this encounter Progress Notes * Aga Connolly PHARM Tech - 01/18/2024 10:39 AM EDT Contacts Type Contact Phone/Fax 01/18/2024 10:33 AM EDT Phone (Outgoing) Taylor Kraft (Self) [phone] (M) Left Message Subjective Advised patient to contact Anticoagulation Clinic if any unusual bruising or bleeding, recent illness, changes in medication, or questions/concerns. PT/INR results, Coumadin dose instructions, and next PT/INR date communicated as noted by Pharmacist: Yes ALLYSON HAMMOND 01/18/2024, 10:39 AM * Ivania Martino [facility] - 01/18/2024 8:57 AM EDT Coumadin Clinic (region specific) Objective Current Warfarin Dose As of 01/18/2024 Warfarin maintenance plan: 5 mg (10 mg x 0.5) every Mon, Fri; 10 mg (10 mg x 1) all other days INR Result As of 01/18/2024 INR goal: 2.0-3.0 INR used for dosin.3 (01/16/2024) Assessment & Plan Warfarin Plan As of 01/18/2024 Full warfarin instructions: 5 mg every Mon, Fri; 10 mg all other days No change documented: Ivania Martino RPh Next INR check: 01/30/2024 Repeat PT/INR in 2 week(s) Weekly dose: not changed Additional Dosing Information: Description Yasmin Mendezo started 03/09/23 Tech to contact patient with dose instructions as noted. Ivania Martino RPh 01/18/2024, 8:57 AM documented in this encounter Plan of Treatment Upcoming Encounters Date Type Department Care Team (Late st Contact Info) Description 01/30/2024 10:00 AM EDT Laboratory Laboratory, [facility] [address] [place] [phone] [facility] [address] [place] [address] 01/31/2024 6:15 AM EDT Anticoagulation Pharmacy Call Center [address] [facility] [place] [address] [facility] [address] [facility] [place] [address] 02/06/2024 9:00 AM EDT Imaging Radiology [facility] [address] [place] [address] 02/06/2024 10:00 AM EDT Office Visit Family Practice [facility] [address] [place] [address] Alicia Meyers CRNP [address] [place] [address] 11/10/2024 8:20 AM EST Office Visit [facility] [address] [place] [address] Campos Lange MD [address] [facility] [place] [id number] Scheduled Procedures Name Priority Associated Diagnoses Date/Ti [...] Cancer Screening 07/29/2023 CKD PHOS USE SMARTSET 88171 11/07/202310/19, 07/23/2019, 03/25/2014 Mammogram 01/23/2024 01/22/2023, 0504/2023, 01/03/2022, Additional history exists CKD HGB USE SMARTSET 36649 04/30/202404/30, 04/30/2023, 11/07/2022, Additional history exists GFR [...] and were consensually agreed upon. Care Teams Occupational Therapy Co Director Relationship Specialty Start Date End Date Campos Lange MD [address] [place] [address] PCP - General Family Medicine 10/07/15 documented as of this encounter
--- OUTSIDE RECORDS SUMMARY | 2024-04-11 00:08 | External Medical Summary | Summary of Care ---
Author Name Unknown Organization [facility] Address [address] [place] [address] Phone [phone] Care Team Providers Care Pest Control Service Sales Agent Name Role Phone Campos Lange MD Primary Care Provider +1- [phone] Reason for Visit * Reason Comments Outpatient Testing Encounter Details Date Type Department Care Team (Late st Contact Info) Description 01/16/2024 10:10 AM EDT Laboratory Laboratory, [place] [address] [place] [address] [place] [address] [place] [address] History of pulmonary embolism Allergies No known active allergiesdocumented as of this encounter (statuses as of 01/16/2024) Medications Medication Sig Dispensed Refills Start Date End Date Status VITAMIN D 400 UNIT PO TABSIndications:Hyp ocalcemia 2 Tab Oral Daily qs 0 06/30/2009 Active Fluticasone Propionate 50 MCG/ACT Nasal Suspension (Flonase Allergy Relief) Administer 1 [place] into nostril in the morning. 15.8 mL [...] Oral Tablet (Cordarone)Indicati ons:PAF (paroxysmal atrial fibrillation) ([facility]),Atrial fibrillation with rapid ventricular response (HCC) Take [...] as of this encounter (statuses as of 01/16/2024) Active Problems Problem Noted Date Diagnosed Date [...] as of this encounter (statuses as of 01/16/2024) Resolved Problems Problem Noted Date Diagnosed Date [...] ROTATOR CUFF SYNDROME, RIGHT SHOULDER 04/05/2010 07/18/2019 nursing home current use of ant icoagulant therapy 04/05/2010 [...] as of this encounter (statuses as of 01/16/2024) Immunizations Name Administration Dates Next Due COVID-19 mRNA, LNP-s, No Pre serve, 2-Dose Series (Moderna) 11/18/2020,10/23/2020 COVID-19, mRNA, LNP-s, PF, B ooster, 100mcg/0.5mg (Moderna) 09/24/2021 Pneumococcal Conjugate Vacci ne, 20-valent ([email or web address]) 11/07/2023 Pneumococcal Polysaccharide PPV23 (Pneumovax) 11/04/2021 Seasonal [...] Care Team (Late st Contact Info) Description 01/17/2024 6:15 AM EDT Anticoagulation Pharmacy Call Center [address] [facility] [place] [address] [facility] 58 60 [facility] [place] [address] 01/24/2024 9:20 AM EDT Office Visit [facility] [address] [place] [address] Alicia Meyers CRNP [address] [place] [address] 02/06/2024 9:00 AM EDT Imaging Radiology [facility] 1st Floor, [place] [address] [place] [address] 02/06/2024 10:00 AM EDT Office Visit Family [facility] [address] [place] [address] Alicia Meyers, DEEPTHI [address] [place] [address] 11/10/2024 8:20 AM EST [facility] [address] [facility] [address] Campos Lange MD [address] [place], [place] [id number] Pending Results Name Type Priority Associated Diagnoses Date /Time PT INR Lab Routine History of pulmonary embolism 01/16/2024 10:23 AM EDT Scheduled Procedures Name Priority Associated [...] Cancer Screening 07/29/2023 CKD PHOS USE SMARTSET 66545 11/07/2023/09/2022, 07/23/2019, 03/25/2014 Mammogram 01/23/2024 01/22/2023, 0504/2023, 01/03/2022, Additional history exists CKD HGB USE SMARTSET 42632 04/30/202404/30, 04/30/2023, 11/07/2022, Additional history exists GFR [...] and were consensually agreed upon. Care Teams Pest Control Service Sales Agent Relationship Specialty Start Date End Date Campos Lange MD [address] [place] [address] PCP - General Family Medicine 10/07/15 documented as of this encounter
--- OUTSIDE RECORDS SUMMARY | 2024-04-11 00:08 | External Medical Summary | Summary of Care ---
Author Name Unknown Organization [facility] Address [address] [place] [address] Phone [phone] Care Team Providers Care Environmental Sciences Professor Name Role Phone Campos Lange MD Primary Care Provider +1- [phone] Reason for Visit * Reason Comments Outpatient Testing Encounter Details Date Type Department Care Team (Late st Contact Info) Description 01/30/2024 11:00 AM EDT Laboratory Laboratory, [place] [address] [place] [address] [place], [facility] [address] [place] [address] History of pulmonary embolism Allergies No known active allergiesdocumented as of this encounter (statuses as of 01/30/2024) Medications Medication Sig Dispensed Refills Start Date End Date Status VITAMIN D 400 UNIT PO TABSIndications:Hyp ocalcemia 2 Tab Oral Daily qs 0 06/30/2009 Active Fluticasone Propionate 50 MCG/ACT Nasal Suspension (Flonase Allergy Relief) Administer 1 [place] into nostril in the morning. 15.8 mL [...] Oral Tablet (Cordarone)Indicati ons:PAF (paroxysmal atrial fibrillation) ([facility]),Atrial fibrillation with rapid ventricular response (HCC) Take [...] as of this encounter (statuses as of 01/30/2024) Active Problems Problem Noted Date Diagnosed Date [...] as of this encounter (statuses as of 01/30/2024) Resolved Problems Problem Noted Date Diagnosed Date [...] ROTATOR CUFF SYNDROME, RIGHT SHOULDER 04/05/2010 07/18/2019 snf current use of ant icoagulant therapy 04/05/2010 [...] as of this encounter (statuses as of 01/30/2024) Immunizations Name Administration Dates Next Due COVID-19 mRNA, LNP-s, No Pre serve, 2-Dose Series (Moderna) 11/18/2020,10/23/2020 COVID-19, mRNA, LNP-s, PF, B ooster, 100mcg/0.5mg (Moderna) 09/24/2021 Pneumococcal Conjugate Vacci ne, 20-valent ([id number]) 11/07/2023 Pneumococcal Polysaccharide PPV23 (Pneumovax) 11/04/2021 Seasonal [...] Care Team (Late st Contact Info) Description 01/31/2024 6:15 AM EDT Anticoagulation Pharmacy Call Center [address] [facility] [place] [address] [facility] 58 60 [facility] [place] [address] 02/06/2024 9:00 AM EDT Imaging Radiology [facility] 1st [facility] 132 [facility] [place] [address] 02/06/2024 10:00 AM EDT Office Visit Family [facility] [address] [place] [address] Alicia Meyers CRNP 132 [facility] [place] [address] 11/10/2024 8:20 AM EST [address] [address] Campos Lange MD [address] [facility] [place] [address] Pending Results Name Type Priority Associated Diagnoses Date /Time PT INR Lab Routine History of pulmonary embolism 01/30/2024 11:04 AM EDT Scheduled Procedures Name Priority Associated [...] Cancer Screening 07/29/2023 CKD PHOS USE SMARTSET 72949 11/07/202310/19, 07/23/2019, 03/25/2014 Mammogram 01/23/2024 01/22/2023, 0504/2023, 01/03/2022, Additional history exists CKD HGB USE SMARTSET 96857 04/30/202404/30, 04/30/2023, 11/07/2022, Additional history exists GFR [...] and were consensually agreed upon. Care Teams Environmental Sciences Professor Relationship Specialty Start Date End Date Campos Lange MD [address] [place] [address] PCP - General Family Medicine 10/07/15 documented as of this encounter
--- OUTSIDE RECORDS SUMMARY | 2024-04-11 00:08 | External Medical Summary | Summary of Care ---
Author Name Unknown Organization [facility] Address [address] [place] [address] Phone [phone] Care Team Providers Care Solid Propellant Processor Name Role Phone Campos Lange MD Primary Care Provider +1- [phone] Reason for Visit * Reason Onset Date Comments Encounter Created in Error 02/04/2024 Encounter Details Date Type Department Care Team (Late st Contact Info) Description 02/04/2024 Telephone [facility] [address] [place] [address] Campos Lange MD [address] [place] [address] Encounter Created in Error Allergies No known active allergiesdocumented as of this encounter (statuses as of 02/04/2024) Medications Medication Sig Dispensed Refills Start Date End Date Status VITAMIN D 400 UNIT PO TABSIndications:Hyp ocalcemia 2 Tab Oral Daily qs 0 06/30/2009 Active Fluticasone Propionate 50 MCG/ACT Nasal Suspension (Flonase Allergy Relief) Administer 1 [place] into nostril in the morning. 15.8 mL [...] as of this encounter (statuses as of 02/04/2024) Active Problems Problem Noted Date Diagnosed Date [...] as of this encounter (statuses as of 02/04/2024) Resolved Problems Problem Noted Date Diagnosed Date [...] as of this encounter (statuses as of 02/04/2024) Immunizations Name Administration Dates Next Due COVID-19 mRNA, LNP-s, No Pre serve, 2-Dose Series (Moderna) 11/18/2020,10/23/2020 COVID-19, mRNA, LNP-s, PF, B ooster, 100mcg/0.5mg (Moderna) 09/24/2021 Pneumococcal Conjugate Vacci ne, 20-valent ([id number]) 11/07/2023 Pneumococcal Polysaccharide PPV23 (Pneumovax) 11/04/2021 Seasonal [...] Team (Late st Contact Info) Description 02/06/2024 9:00 AM EDT Imaging Radiology [facility] 1st [facility] [address] [place] [address] 02/06/2024 10:00 AM EDT Office Visit Family Practice [facility] [address] [place] [address] Alicia Meyers CRNP 132 [facility] [place] [address] 02/20/2024 10:10 AM EDT Laboratory Laboratory, [facility] [address] [place] [phone] [facility] [address] [place] [address] 02/21/2024 6:15 AM EDT Anticoagulation Pharmacy Call Center [address] [facility] [place] [address] [facility], [facility] 58 60 [facility] [place] [address] 11/10/2024 8:20 AM EST Office Visit [facility] [address] [place] [facility] [place] [address] Campos Lange MD [address] [place] [facility] [place] [address] Scheduled Procedures Name Priority Associated Diagnoses Date/Ti [...] Cancer Screening 07/29/2023 CKD PHOS USE SMARTSET 80717 11/07/202310/19, 07/23/2019, 03/25/2014 Mammogram 01/23/2024 01/22/2023, 05/04/2023, 01/03/2022, Additional history exists CKD HGB USE SMARTSET 13228 04/30/202404/30, 04/30/2023, 11/07/2022, Additional history exists GFR [...] and were consensually agreed upon. Care Teams Solid Propellant Processor Relationship Specialty Start Date End Date Campos Lange MD [address] [place] [facility] [place] [address] PCP - General Family Medicine 10/07/15 documented as of this encounter
--- OUTSIDE RECORDS SUMMARY | 2024-04-11 00:08 | External Medical Summary | Summary of Care ---
Author Name Unknown Organization [facility] Address [address] [place] [address] Phone [phone] Care Team Providers Care Twister Doffer Name Role Phone Campos Lange MD Primary Care Provider +1- [phone] Reason for Visit * Reason Comments Dosage Adjustment Via Phone (anticoag Cl inic) Encounter Details Date Type Department Care Team (Latest Contact Info) Description 01/31/2024 6:15 AM EDT Anticoagulation Pharmacy Call Center [address] [place] [address] [facility] [address] [place] [address] History of pulmonary embolism* Allergies No known active allergiesdocumented as of this encounter (statuses as of 01/31/2024) Medications Medication Sig Dispensed Refills Start Date End Date Status VITAMIN D 400 UNIT PO TABSIndications:Hyp ocalcemia 2 Tab Oral Daily qs 0 06/30/2009 Active Fluticasone Propionate 50 MCG/ACT Nasal Suspension (Flonase Allergy Relief) Administer 1 [place] into nostril in the morning. 15.8 mL [...] as of this encounter (statuses as of 01/31/2024) Active Problems Problem Noted Date Diagnosed Date [...] as of this encounter (statuses as of 01/31/2024) Resolved Problems Problem Noted Date Diagnosed Date [...] ROTATOR CUFF SYNDROME, RIGHT SHOULDER 04/05/2010 07/18/2019 [facility] current use of ant icoagulant therapy 04/05/2010 [...] as of this encounter (statuses as of 01/31/2024) Immunizations Name Administration Dates Next Due COVID-19 mRNA, LNP-s, No Pre serve, 2-Dose Series (Moderna) 11/18/2020,10/23/2020 COVID-19, mRNA, LNP-s, PF, B ooster, 100mcg/0.5mg (Moderna) 09/24/2021 Pneumococcal Conjugate Vacci ne, 20-valent ([email or web address]) 11/07/2023 Pneumococcal Polysaccharide PPV23 (Pneumovax) 11/04/2021 Seasonal [...] of this encounter Progress Notes * Ivania Hendrix CPhT - 01/31/2024 2:21 PM EDT Contacts Type Contact Phone/Fax 01/31/2024 02:19 PM EDT Phone (Outgoing) Taylor Kraft (Self) [phone] (M) Left Message Subjective Advised patient to contact Anticoagulation Clinic if any unusual bruising or bleeding, recent illness, changes in medication, or questions/concerns. PT/INR results, Coumadin dose instructions, and next PT/INR date communicated as noted by Pharmacist: Yes Ivania Hendrix CPhT 01/31/2024, 2:21 PM * Denae Hendrix [facility] - 01/31/2024 10:30 AM EDT Coumadin Clinic (region specific) Objective Current Warfarin Dose As of 01/31/2024 Warfarin maintenance plan: 5 mg (10 mg x 0.5) every Mon, Fri; 10 mg (10 mg x 1) all other days INR Result As of 01/31/2024 INR goal: 2.0-3.0 INR used for dosin.5 (01/30/2024) Assessment & Plan Warfarin Plan As of 01/31/2024 Full warfarin instructions: 5 mg every Mon, Fri; 10 mg all other days No change documented: Denae Hendrix RPh Next INR check: 02/20/2024 Repeat PT/INR in 3 week(s) Weekly dose: not changed Additional Dosing Information: Description [facility] Amio started 03/09/23 Tech to contact patient with dose instructions as noted. Denae Hendrix RPh 01/31/2024, 10:31 AM documented in this encounter Plan of Treatment Upcoming Encounters Date Type Department Care Team (Late st Contact Info) Description 02/06/2024 9:00 AM EDT Imaging Radiology [address] [facility] [address] 02/06/2024 10:00 AM EDT Office Visit [facility] 132 [facility] [place] [address] Alicia Meyers CRNP 132 [facility] [place] [address] 11/10/2024 8:20 AM EST Office Visit [facility] [address] [place] [address] Campos Lange MD [address] [place] [address] Scheduled Procedures Name Priority Associated Diagnoses Date/Ti [...] Cancer Screening 07/29/2023 CKD PHOS USE SMARTSET 64566 11/07/202310/19, 07/23/2019, 03/25/2014 Mammogram 01/23/2024 01/22/2023, 0504/2023, 01/03/2022, Additional history exists CKD HGB USE SMARTSET 01228 04/30/202404/30, 04/30/2023, 11/07/2022, Additional history exists GFR [...] and were consensually agreed upon. Care Teams Twister Doffer Relationship Specialty Start Date End Date Campos Lange MD [address] [place] [address] PCP - General Family Medicine 10/07/15 documented as of this encounter
--- OUTSIDE RECORDS SUMMARY | 2024-04-11 00:08 | External Medical Summary ---
Author Name Unknown Address Unknown Organization [id number][facility] [place] [facility] [address] [place] [address] Laboratory Report Ordering Provider Test Date Status MARLENE COVARRUBIAS 01/30/2024 11:04:52 Final Please draw PT/INR every 1-4 weeks or as requested by the [facility] Cou[facility]in [facility]

Warfarin Therapy
INR: 2.0-3.0 conventional anticoagulation
INR: 2.5-3.5 high intensity anticoagulation Observation Date Value Abnormality Reference (Units ) Status PT 01/30/2024 11:04:52 27.1 Above high normal 11 .6-15.2 (seconds) Final INR 01/30/2024 11:04:52 2.5 Above high normal 0. 8-1.2 Final Performing Location [facility] [place] [facility] [address] [place] [address]
--- OUTSIDE RECORDS SUMMARY | 2024-04-11 00:08 | External Medical Summary ---
Author Name Unknown Address Unknown Organization [id number]:[facility] [place] [facility] [address] [place] [address] Laboratory Report Ordering Provider Test Date Status MARLENE COVARRUBIAS 01/02/2024 09:58:42 Final Please draw PT/INR every 1-4 weeks or as requested by the [facility] Coumadin Clinic

Warfarin Therapy
INR: 2.0-3.0 conventional anticoagulation
INR: 2.5-3.5 high intensity anticoagulation Observation Date Value Abnormality Reference (Units ) Status PT 01/02/2024 09:58:42 21.4 Above high normal 11 .6-15.2 (seconds) Final INR 01/02/2024 09:58:42 1.8 Above high normal 0. 8-1.2 Final Performing Location [facility] [place] [facility] [address] [place] [address]
--- OUTSIDE RECORDS SUMMARY | 2024-04-11 00:08 | External Medical Summary | Summary of Care ---
Author Name Unknown Organization [facility] Address [address] [place] [address] Phone [phone] Care Team Providers Care Marketing Regional Consultant Name Role Phone Campos Lange MD Primary Care Provider +1- [phone] Reason for Visit * Reason Comments Dosage Adjustment Via Phone (anticoag Cl inic) Encounter Details Date Type Department Care Team (Latest Contact Info) Description 01/03/2024 6:15 AM EDT Anticoagulation Pharmacy Call Center [address] [place] [address] [facility] [address] [place] [address] History of pulmonary embolism* Allergies No known active allergiesdocumented as of this encounter (statuses as of 01/03/2024) Medications Medication Sig Dispensed Refills Start Date End Date Status VITAMIN D 400 UNIT PO TABSIndications:Hyp ocalcemia 2 Tab Oral Daily qs 0 06/30/2009 Active Fluticasone Propionate 50 MCG/ACT Nasal Suspension (Flonase Allergy Relief) Administer 1 [place] into nostril in the morning. 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 04/05/2010 [...] as of this encounter (statuses as of 01/03/2024) Immunizations Name Administration Dates Next Due COVID-19 mRNA, LNP-s, No Pre serve, 2-Dose Series (Moderna) 11/18/2020,10/23/2020 COVID-19, mRNA, LNP-s, PF, B ooster, 100mcg/0.5mg (Moderna) 09/24/2021 Pneumococcal Conjugate Vacci ne, 20-valent ([id number]) 11/07/2023 Pneumococcal Polysaccharide PPV23 (Pneumovax) 11/04/2021 Seasonal [...] Progress Notes * Ivania Hendrix CPhT - 01/03/2024 11:56 AM EDT Contacts Type Contact Phone/Fax 01/03/2024 11:53 AM EDT Phone (Outgoing) Taylor Kraft (Self) [phone] (M) Left Message Subjective Advised patient to contact Anticoagulation Clinic if any unusual bruising or bleeding, recent illness, changes in medication, or questions/concerns. PT/INR results, Coumadin dose instructions, and next PT/INR date communicated as noted by Pharmacist: Yes Ivania Hendrix CPhT 01/03/2024, 11:56 AM * Ivania Martino [facility] - 01/03/2024 9:07 AM EDT Images from the original note were not included. Coumadin Clinic (region specific) Objective Current Warfarin Dose As of 01/03/2024 Warfarin maintenance plan: 5 mg (10 mg x 0.5) every Mon, Wed, Fri; 10 mg (10 mg x 1) all other days INR Result As of 01/03/2024 INR goal: 2.0-3.0 INR used for dosin.8 (01/02/2024) Assessment & Plan Warfarin Plan As of 01/03/2024 Full warfarin instructions: 01/02: 15 mg; Otherwise 5 mg every Mon, Fri; 10 mg all other days Next INR check: 01/16/2024 Repeat PT/INR in 2 week(s) Weekly dose: increased Additional Dosing Information: Description Yasmin Mendezo started 03/09/23 Tech to contact patient with dose instructions as noted. Ivania Martino RPh 01/03/2024, 9:07 AM documented in this encounter Plan of Treatment Upcoming Encounters Date Type Department Care Team (Late st Contact Info) Description 01/16/2024 10:00 AM EDT Laboratory Laboratory, [facility] [address] [place] [address] [facility] [address] [place] [address] 01/17/2024 6:15 AM EDT Anticoagulation Pharmacy Call Center [address] [facility] [place] [address] [facility] [address] 60 [facility] [place] [address] 01/24/2024 9:20 AM EDT Office Visit Family Practice [facility] [address] [place] [address] Alicia Meyers CRNP [address] [place] [address] 02/06/2024 9:00 AM EDT Imaging Radiology [facility] 1st Floor, [place] [address] [place] [address] 02/06/2024 10:00 AM EDT Office Visit Family [facility] [address] [place] [address] Alicia Meyers CRNP [address] [place] [address] 11/10/2024 8:20 AM EST Office Visit [facility] [address] [place] [facility] [place] [address] Campos Lange MD [address] [place] [address] Scheduled Procedures Name Priority Associated Diagnoses Date/Ti me COLONOSCOPY FLEXIBLE PROXIMAL DIAGNOSTIC Recall History of colon polyps Health Maintenance Due Date Last Done Comments Zoster Vaccines (1 of 2) 2006 Depression Screening 07/19/2021 07/19/2020 COVID-19 Vaccine ( season) 2023 09/24/2021, 11/18/2020, 10/23/2020 COLONOSCOPY-EVERY 5 YRS AGES 18-100 07/29/2023 07/29/2018, 07/29/2018, 01/30/2007 CKD PHOS USE SMARTSET 20503 11/07/202310/19, 07/23/2019, 03/25/2014 Mammogram 01/23/2024 01/22/2023, 04/2023, 01/03/2022, Additional history exists CKD HGB USE SMARTSET 15047 04/30/202404/30, 04/30/2023, 11/07/2022, Additional history exists GFR [...] and were consensually agreed upon. Care Teams Marketing Regional Consultant Relationship Specialty Start Date End Date Campos Lange MD [address] [place] [address] PCP - General Family Medicine 10/07/15 documented as of this encounter
--- OUTSIDE RECORDS SUMMARY | 2024-04-11 00:09 | External Medical Summary | Summary of Care ---
Author Name Unknown Organization [facility] Address [address] [place] [address] Phone [phone] Care Team Providers Care Twisting Department End Finder Name Role Phone Campos Lange MD Primary Care Provider +1- [phone] Reason for Visit * Reason Onset Date Comments Appointment 11/07/2023 Encounter Details Date Type Department Care Team (Late st Contact Info) Description 11/07/2023 Telephone [facility] [address] [place] [address] Campos Lange MD [address] [place] [address] Appointment Allergies No known active allergiesdocumented as of this encounter (statuses as of 12/14/2023) Medications Medication Sig Dispensed Refills Start Date End Date Status VITAMIN D 400 UNIT PO TABSIndications:H ypocalcemia 2 Tab Oral Daily qs 0 06/30/2009 Active Fluticasone Propionate 50 MCG/ACT Nasal Suspension (Flonase Allergy Relief) Administer 1 [place] into nostril in the morning. 15.8 mL [...] at bedtime. 90 Tablet 3 09/07/2023 Active Omeprazole 20 MG Oral Capsule Delayed Release (PriLOSEC)Indicat ions:Gastroesopha geal reflux disease without esophagitis TAKE ONE CAPSULE EVERY DAY 1 HOUR BEFORE THE FIRST MEAL OF THE DAY 90 Capsule 3 12/03/2022 4 Discontinued Benzonatate 100 MG Oral Capsule Take 1 Capsule by mouth 3 times a day as needed for Cough. 30 Capsule 1 09/24/2023 4 Discontinued Fluticasone Propionate HFA 110 MCG/ACT Inhalation Aerosol (Flovent HFA) Inhale 2 Puffs by mouth in the morning and 2 Puffs before bedtime. 12 g 5 09/25/2023 4 Discontinued Hospital, Clinic, or Other Facility Administered Medication Ordered Dose Route Frequency Start Date End Date Status Albuterol Sulfate (Proventil) (2.5 MG/3ML) 0.083% inhalation solution 2.5 mgIndications:Chronic cough 2.5 mg NEBULIZER PRN 03/23/2023 03/22/2024 Active Albuterol Sulfate (Proventil) (5 MG/ML) 0.5% *conc* inhalation solution 2.5 mgIndications:Chronic cough 2.5 mg NEBULIZER PRN 03/23/2023 03/22/2024 Active documented as of this encounter (statuses as of 12/14/2023) Active Problems Problem Noted Date Diagnosed Date Mild persistent asthma without complication 11/15 Chronic cough 11/28/2023 Morbid obesity with BMI of 40.0-44.9, adult 11/15 Hypertensive heart and kidne y disease with [...] as of this encounter (statuses as of 12/14/2023) Resolved Problems Problem Noted Date Diagnosed Date Resolved Date Upper respiratory tract infection 09/24/2023 11/28/2023 Mild [...] ROTATOR CUFF SYNDROME, RIGHT SHOULDER 04/05/2010 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 04/05/2010 [...] as of this encounter (statuses as of 12/14/2023) Immunizations Name Administration Dates Next Due COVID-19 mRNA, LNP-s, No Pre serve, 2-Dose Series (Moderna) 11/18/2020,10/23/2020 COVID-19, mRNA, LNP-s, PF, B ooster, 100mcg/0.5mg (Moderna) 09/24/2021 Diptheria/Tetanus Adult (TD) 01/20/2002 Pneumococcal Conjugate Vacci ne, 20-valent ([id number]) 11/07/2023 Pneumococcal Polysaccharide PPV23 (Pneumovax) 11/04/2021 Seasonal [...] encounter Miscellaneous Notes * Telephone Encounter - Brooke Rob OSA - 12/14/2023 9:29 AM EDT Letter sent LAYNE Santana 12/14/2023 9:29 AM * Telephone Encounter - Ya Clarke OSA - 12/12/2023 4:28 PM EDT Lmm . * Telephone Encounter - Briana Greenberg OSA - 12/03/2023 12:00 PM EDT Lmm * Telephone Encounter - Hortensia Bryan OSA - 11/07/2023 9:22 AM EST 11/07/23 Pt needs an appt for a Colonoscopy. Answers to questions: Yes, takes Coumadin Mornings are best if possible. [phone] Please call pt and advise on date and time of procedure. documented in this encounter Plan of Treatment Upcoming Encounters Date Type Department Care Team (Late st Contact Info) Description 12/20/2023 6:15 AM EDT Anticoagulation Pharmacy Call Center [address] [facility] [place] [address] [facility], [facility] [address] [facility] [place] [address] 01/24/2024 8:00 AM EDT Imaging Radiology [facility] [address] [facility] [address] [place] [address] 01/24/2024 9:20 AM EDT Office Visit Family Practice [facility] 132 [place] [address] Alicia Meyers CRNP [address] [place] [address] 11/10/2024 8:20 AM EST Office Visit [facility] [address] [place] [phone] Campos Lange MD [address], [place] [phone] Scheduled Procedures Name Priority Associated Diagnoses Date/Ti me COLONOSCOPY FLEXIBLE PROXIMAL DIAGNOSTIC Recall History of colon polyps Health Maintenance Due Date Last Done Comments Zoster Vaccines (1 of 2) 2006 Depression Screening 07/19/2021 07/19/2020 COVID-19 Vaccine ( season) 2023 09/24/2021, 11/18/2020, 10/23/2020 COLONOSCOPY-EVERY 5 YRS AGES 18-100 07/29/2023 07/29/2018, 07/29/2018, 01/30/2007 CKD PHOS USE SMARTSET 73558 11/07/202310/19, 07/23/2019, 03/25/2014 Mammogram 01/23/2024 01/22/2023, 04/2023, 01/03/2022, Additional history exists CKD HGB USE SMARTSET 70492 04/30/202404/30, 04/30/2023, 11/07/2022, Additional history exists GFR [...] filedocumented as of this encounter Advance Directives Latest Code Status [...] and were consensually agreed upon. Care Teams Twisting Department End Finder Relationship Specialty Start Date End Date Campos Lange MD [address] [place] [address] PCP - General Family Medicine 10/07/15 documented as of this encounter
--- OUTSIDE RECORDS SUMMARY | 2024-04-11 00:09 | External Medical Summary | Summary of Care ---
Author Name Unknown Organization [facility] Address [address] [place] [address] Phone [phone] Care Team Providers Care Home Child Care Provider Name Role Phone Campos Lange MD Primary Care Provider +1- [phone] Encounter Details Date Type Department Care Team (Late st Contact Info) Description 11/07/2023 Telephone [facility] [address] [place] [address] Campos Lange MD [address] [place] [address] Allergies No known active allergiesdocumented as of this encounter (statuses as of 12/03/2023) Medications Medication Sig Dispensed Refills Start Date End Date Status VITAMIN D 400 UNIT PO TABSIndications:H ypocalcemia 2 Tab Oral Daily qs 0 06/30/2009 Active Omeprazole 20 MG Oral Capsule Delayed Release (PriLOSEC)Indicat ions:Gastroesopha geal reflux disease without esophagitis TAKE ONE CAPSULE EVERY DAY 1 HOUR BEFORE THE FIRST MEAL OF THE DAY 90 Capsule 3 12/03/2022 Active Fluticasone Propionate 50 MCG/ACT Nasal Suspension (Flonase Allergy Relief) Administer 1 [place] into nostril in the morning. 15.8 mL [...] at bedtime. 90 Tablet 3 09/07/2023 Active Benzonatate 100 MG Oral Capsule Take 1 [...] as of this encounter (statuses as of 12/03/2023) Active Problems Problem Noted Date Diagnosed Date [...] as of this encounter (statuses as of 12/03/2023) Resolved Problems Problem Noted Date Diagnosed Date [...] ROTATOR CUFF SYNDROME, RIGHT SHOULDER 04/05/2010 07/18/2019 halfway current use of ant icoagulant therapy 04/05/2010 [...] as of this encounter (statuses as of 12/03/2023) Immunizations Name Administration Dates Next Due COVID-19 mRNA, LNP-s, No Pre serve, 2-Dose Series (Moderna) 11/18/2020,10/23/2020 COVID-19, mRNA, LNP-s, PF, B ooster, 100mcg/0.5mg (Moderna) 09/24/2021 Diptheria/Tetanus Adult (TD) 01/20/2002 Pneumococcal Conjugate Vacci ne, 20-valent ([id number]) 11/07/2023 Pneumococcal Polysaccharide PPV23 (Pneumovax) 11/04/2021 Seasonal [...] encounter Miscellaneous Notes * Telephone Encounter - Briana Greenberg OSA - 12/03/2023 12:00 PM EDT Lmm * Telephone Encounter - Hortensia Bryan OSA - 11/07/2023 9:22 AM EST 11/07/23 Pt needs an appt for a Colonoscopy. Answers to questions: Yes, takes Coumadin Mornings are best if possible. [phone] Please call pt and advise on date and time of procedure. documented in this encounter Plan of Treatment Upcoming Encounters Date Type Department Care Team (Late st Contact Info) Description 12/12/2023 9:30 AM EDT Laboratory Laboratory, [facility] [address] [facility] [address] [facility] [address] 12/13/2023 6:15 AM EDT Anticoagulation Pharmacy Call Center [facility] [address] [facility] [place] [address] [facility], [facility] [address] 60 [facility] [place] [address] 01/24/2024 8:00 AM EDT Imaging Radiology [facility] [address] [facility] [address] [facility] [place] [address] 01/24/2024 9:20 AM EDT Office Visit Family [facility] [address] [place] [address] Alic[facility] Meyers CRNP [address] [facility] [address] 11/10/2024 8:20 AM EST Office Visit [facility] [address] [place] [phone] Campos Lange MD [address] [place] [address] Scheduled Procedures Name Priority Associated Diagnoses Date/Ti me COLONOSCOPY FLEXIBLE PROXIMAL DIAGNOSTIC Recall History of colon polyps Health Maintenance Due Date Last Done Comments Zoster Vaccines (1 of 2) 2006 Depression Screening 07/19/2021 07/19/2020 COVID-19 Vaccine ( season) 2023 09/24/2021, 11/18/2020, 10/23/2020 COLONOSCOPY-EVERY 5 YRS AGES 18-100 07/29/2023 07/29/2018, 07/29/2018, 01/30/2007 CKD PHOS USE SMARTSET 31371 11/07/2023/09/2022, 07/23/2019, 03/25/2014 Mammogram 01/23/2024 01/22/2023, 04/2023, 01/03/2022, Additional history exists CKD HGB USE SMARTSET 43495 04/30/202404/30, 04/30/2023, 11/07/2022, Additional history exists GFR [...] and were consensually agreed upon. Care Teams Home Child Care Provider Relationship Specialty Start Date End Date Campos Lange MD [address] [place] [address] PCP - General Family Medicine 10/07/15 documented as of this encounter
--- OUTSIDE RECORDS SUMMARY | 2024-04-11 00:09 | External Medical Summary | Summary of Care ---
Author Name Unknown Organization [facility] Address [address] [place] [address] Phone [phone] Care Team Providers Care Virologist Name Role Phone Campos Lange MD Primary Care Provider +1- [phone] Reason for Visit * Reason Comments Follow Up Encounter Details Date Type Department Care Team (Late st Contact Info) Description 10/30/2023 11:00 AM EST Office Visit Cardiology, [facility] [address] [facility] [place] [address] Anabel Covington CRNP [address] [place] [address] PAF (paroxysmal atrial fibrillation) (HCC)*; HTN, goal below 130/80; History of pulmonary embolism; Chronic heart failure with preserved ejection fraction (HCC); Encounter for monitoring amiodarone therapy Allergies No known active allergiesdocumented as of this encounter (statuses as of 11/13/2023) Medications Medication Sig Dispensed Refills Start Date End Date Status VITAMIN D 400 UNIT PO TABSIndications:Hypo calcemia 2 Tab Oral Daily qs 0 06/30/2009 Active Omeprazole 20 MG Oral Capsule Delayed Release (PriLOSEC)Indication s:Gastroesophageal reflux disease without esophagitis TAKE ONE CAPSULE EVERY DAY 1 HOUR BEFORE THE FIRST MEAL OF THE DAY 90 Capsule 3 12/03/2022 Active Fluticasone Propionate 50 MCG/ACT Nasal Suspension (Flonase Allergy Relief) Administer 1 [place] into nostril in the morning. 15.8 mL 3 12/11/2022 Active Warfarin Sodium 10 MG Oral Tablet (Coumadin)Indication s:History of pulmonary embolism TAKE 1 TAB BY [...] Active Amiodarone HCl 200 MG Oral Tablet (Cordarone)Indicatio ns:PAF (paroxysmal atrial fibrillation) (HCC),Atrial fibrillation with rapid ventricular response (HCC) Take 1 Tablet by mouth in the morning. 90 Tablet 3 04/27/2023 Active Cetirizine HCl 10 MG Oral Tablet (ZyrTEC Allergy) Take 1 Tablet by mouth in the morning. 0 Active Levothyroxine Sodium 175 MCG Oral Tablet (Levoxyl)Indications :Malignant neoplasm of thyroid gland (HCC) TAKE 1 TABLET BY MOUTH IN THE MORNING. (AT LEAST 30 MIN PRIOR TO BREAKFAST OR OTHER MEDS). 90 Tablet 3 08/30/2023 Active Montelukast Sodium 10 MG Oral Tablet (Singulair)Indicatio ns:Mild intermittent asthma with exacerbation Take 1 Tablet by mouth at bedtime. 90 Tablet 3 09/07/2023 Active Benzonatate 100 MG Oral Capsule Take 1 Capsule by mouth 3 times a day as needed for Cough. 30 Capsule 1 09/24/2023 Active Fluticasone Propionate HFA 110 MCG/ACT Inhalation Aerosol (Flovent HFA) Inhale 2 Puffs by mouth in the morning and 2 Puffs before bedtime. 12 g 5 09/25/2023 Active Hospital, Clinic, or Other Facility Administered Medication Ordered Dose Route Frequency Start Date End Date Status Albuterol Sulfate (Proventil) (2.5 MG/3ML) 0.083% inhalation solution 2.5 mgIndications:Chronic cough 2.5 mg NEBULIZER PRN 03/23/2023 03/22/2024 Active Albuterol Sulfate (Proventil) (5 MG/ML) 0.5% *conc* inhalation solution 2.5 mgIndications:Chronic cough 2.5 mg NEBULIZER PRN 03/23/2023 03/22/2024 Active documented as of this encounter (statuses as of 11/13/2023) Active Problems Problem Noted Date Diagnosed Date Upper respiratory tract infection 09/24/2023 Mild persistent asthma with acute exacerbation 0 09/24/2023 PAF (paroxysmal atrial fibrillation) 03/18/2023 Chronic heart [...] as of this encounter (statuses as of 11/13/2023) Resolved Problems Problem Noted Date Diagnosed Date Resolved Date Body mass index (BMI) of 45. 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 04/05/2010 [...] as of this encounter (statuses as of 11/13/2023) Immunizations Name Administration Dates Next Due COVID-19 mRNA, LNP-s, No Pre serve, 2-Dose Series (Moderna) 11/18/2020,10/23/2020 COVID-19, mRNA, LNP-s, PF, B ooster, 100mcg/0.5mg (Moderna) 09/24/2021 Pneumococcal Polysaccharide PPV23 (Pneumovax) 11/04/2021 Seasonal Influenza, PF, 6 M & above, IM , (FluLaval or Fluzone) 07/19/2020,07/18/2019,07/09/2018,06/18 Seasonal Influenza, Quadriva lent Hd (Fluzone Hd) 09/06/2021 Seasonal Influenza, Quadriva lent, No Preserve, IM [...] Sign Reading Time Taken Comments Blood Pressure 136/72 10/30/2023 10:48 AM EST Pulse 72 10/30/2023 10:48 AM EST Temperature - - Respiratory Rate 14 10/30/2023 10:48 AM EST Oxygen Saturation - - Inhaled Oxygen Concentration - - Weight 121.1 kg (267 lb) 10/30/2023 10:48 AM EST Height - - Body Mass Index 44.59 10/16/2023 7:54 AM EST documented in this encounter Functional Status Functional [...] No 12/03/2014 documented as of this encounter Patient Instructions * Patient Instructions* Anabel Covington CRNP - 10/30/2023 11:43 AM EST PACE/PACENET Prescription Assistance Program (Program of All-Inclusive Care for the Elderly) [facility] prescription assistance programs for older adults offer low-cost prescription medication to qualified residents, age 65 and older. This is a free program. There is no cost to apply. Call to apply. If you do not qualify, please reach out to our office so we can investigate other options for you. PACE Income Limits: Single: $33,500 : $41,500 documented in this encounter Progress Notes * Francie Bartholomew, DO - 11/13/2023 9:38 AM EST I have reviewed the advanced practitioner's documentation on the date of service referenced in note, and I agree with, and take responsibility for the plan of care. Pt seen in 5 month EP f/u due to pAF/flutter Pt possibly noticing slight increase in fatigue but is not sure if this is due to weather She is maintaining SR Continue amiodarone; TFT and LFT are good Continue other cardiac medications No indication for a ppm at this juncture or a PVI ablation EP f/u 9 months Francie Bartholomew DO Department of Cardiology [facility] [place] [address] documented in this encounter Nursing Notes * Christina Thorpe LPN - 10/30/2023 10:47 AM EST Examination Room: 11 Name: Taylor Kraft Date of : 1955 Reason for Visit: Follow upl Problems/Concerns: denies Interim Hosp(s): Some days very tired Chest Pain/SOB: denies MyChart Discussed: ALREADY ACTIVE Patient was instructed to not get up on the exam table until directed and assisted by their provider; patient is to remain seated in the chair/ wheelchair/ exam table for fall prevention and safety reasons. Patient is aware staff will assist stepping down off exam table with personnel. documented in this encounter Plan of Treatment Upcoming Encounters Date Type Department Care Team (Late st Contact Info) Description 11/20/2023 11:40 AM EST Laboratory Laboratory, [facility] [address] [facility] [place] [phone] LazoVidhi garcia [address] [facility] [place] [address] 11/21/2023 6:15 AM EST Anticoagulation Pharmacy Call Center WB [address] [place] [address] [facility], [facility] 58 60 [facility] [place] [address] 11/28/2023 7:00 AM EDT Office Visit Family Practice [facility] [address] [facility] [place] [address] Alicia Meyers CRNP [address] [place] [address] 11/28/2023 8:15 AM EDT Office Visit Orthopaedics [facility] [address] [facility] [place] [address] Jurgen Hare DO [address] [place] [address] 01/24/2024 8:00 AM EDT Imaging Radiology [facility] 1st [facility] [address] [facility] [place] [address] 11/10/2024 8:20 AM EST [facility] [address] [place] [phone] Campos Lange MD [address] [place] [address] Scheduled Procedures Name Priority Associated Diagnoses Date/Ti me COLONOSCOPY FLEXIBLE PROXIMAL DIAGNOSTIC Recall History of colon polyps Health Maintenance Due Date Last Done Comments Zoster Vaccines (1 of 2) 2006 Depression Screening 07/19/2021 07/19/2020 COVID-19 Vaccine ( season) 2023 09/24/2021, 11/18/2020, 10/23/2020 COLONOSCOPY-EVERY 5 YRS AGES 18-100 07/29/2023 07/29/2018, 07/29/2018, 01/30/2007 Albumin/Creatinine Ratio 11/07/2023 11/07/2022 CKD PHOS USE SMARTSET 28769 11/07/202310/19, 07/23/2019, 03/25/2014 Mammogram 01/23/2024 01/22/2023, 04/2023, 01/03/2022, Additional history exists CKD HGB USE SMARTSET 03035 04/30/202404/30, 04/30/2023, 11/07/2022, Additional history exists GFR 05/07/2024 11/07/2023, 04/17, 03/02/2023, Additional history exists TSH 11/07/2024 11/07/2023, 04/17, 03/02/2023, Additional history exists Diabetes Screening 11/07/2026 11/07/2023, [...] as of this encounter Visit Diagnoses Diagnosis PAF (paroxysmal atrial fibrillation) (HCC)- Primary Atrial fibrillation HTN, goal below 130/80 Unspecified essential hypertension History of pulmonary embolism Personal history of pulmonary embolism Chronic heart failure with preserved ejection fraction (HCC) Encounter for monitoring amiodarone therapy Encounter for therapeutic drug monitoring documented in this encounter Advance Directives Latest [...] and were consensually agreed upon. Care Teams Virologist Relationship Specialty Start Date End Date Campos Lange MD [address] [place] [address] PCP - General Family Medicine 10/07/15 documented as of this encounter
--- OUTSIDE RECORDS SUMMARY | 2024-04-11 00:09 | External Medical Summary | Summary of Care ---
Author Name Unknown Organization [facility] Address [address] [place] [address] Phone [phone] Care Team Providers Care Reactor Service Operator Name Role Phone Campos Lange MD Primary Care Provider +1- [phone] Reason for Visit * Reason Comments Dosage Adjustment Via Phone (anticoag Cl inic) Encounter Details Date Type Department Care Team (Latest Contact Info) Description 11/29/2023 6:15 AM EDT Anticoagulation Pharmacy Call Center [address] [place] [address] [facility] [address] [place] [address] History of pulmonary embolism* Allergies No known active allergiesdocumented as of this encounter (statuses as of 11/29/2023) Medications Medication Sig Dispensed Refills Start Date End Date Status VITAMIN D 400 UNIT PO TABSIndications:Hyp ocalcemia 2 Tab Oral Daily qs 0 06/30/2009 Active Omeprazole 20 MG Oral Capsule Delayed Release (PriLOSEC)Indicatio ns:Gastroesophageal reflux disease without esophagitis TAKE ONE CAPSULE EVERY DAY 1 HOUR BEFORE THE FIRST MEAL OF THE DAY 90 Capsule 3 12/03/2022 Active Fluticasone Propionate 50 MCG/ACT Nasal Suspension (Flonase Allergy Relief) Administer 1 [place] into nostril in the morning. 15.8 mL [...] 60 Blister Dosing Unit 3 11/28/2023 Active Hospital, Clinic, or Other Facility Administered Medication Ordered Dose Route Frequency Start Date End Date Status Albuterol Sulfate (Proventil) (2.5 MG/3ML) 0.083% inhalation solution 2.5 mgIndications:Chronic cough 2.5 mg NEBULIZER PRN 03/23/2023 03/22/2024 Active Albuterol Sulfate (Proventil) (5 MG/ML) 0.5% *conc* inhalation solution 2.5 mgIndications:Chronic cough 2.5 mg NEBULIZER PRN 03/23/2023 03/22/2024 Active documented as of this encounter (statuses as of 11/29/2023) Active Problems Problem Noted Date Diagnosed Date [...] as of this encounter (statuses as of 11/29/2023) Resolved Problems Problem Noted Date Diagnosed Date [...] ROTATOR CUFF SYNDROME, RIGHT SHOULDER 04/05/2010 07/18/2019 [facility] current use of ant icoagulant therapy 04/05/2010 [...] as of this encounter (statuses as of 11/29/2023) Immunizations Name Administration Dates Next Due COVID-19 mRNA, LNP-s, No Pre serve, 2-Dose Series (Moderna) 11/18/2020,10/23/2020 COVID-19, mRNA, LNP-s, PF, B ooster, 100mcg/0.5mg (Moderna) 09/24/2021 Pneumococcal Conjugate Vacci ne, 20-valent ([id number]) 11/07/2023 Pneumococcal Polysaccharide PPV23 (Pneumovax) 11/04/2021 Seasonal [...] as of this encounter Progress Notes * Violeta Walker PHARM Tech - 11/29/2023 11:44 AM EDT Contacts Type Contact Phone/Fax 11/29/2023 11:41 AM EDT Phone (Outgoing) Taylor Kraft (Self) [phone] (M) Left Message Subjective Advised patient to contact Anticoagulation Clinic if any unusual bruising or bleeding, recent illness, changes in medication, or questions/concerns. PT/INR results, Coumadin dose instructions, and next PT/INR date communicated as noted by Pharmacist: Yes ALLYSON Neri 11/29/2023, 11:44 AM * Ivania Martino [facility] - 11/29/2023 9:04 AM EDT Images from the original note were not included. Coumadin Clinic (region specific) Objective Current Warfarin Dose As of 11/29/2023 Warfarin maintenance plan: 10 mg (10 mg x 1) every Tue, Kaur, Sat; 5 mg (10 mg x 0.5) all other days INR Result As of 11/29/2023 INR goal: 2.0-3.0 INR used for dosin.8 (11/28/2023) Assessment & Plan Warfarin Plan As of 11/29/2023 Full warfarin instructions: 11/28: 15 mg; Otherwise 5 mg every Mon, Wed, Fri; 10 mg all other days Next INR check: 12/12/2023 Repeat PT/INR in 2 week(s) Weekly dose: not changed Additional Dosing Information: Description Yasmin Ma Amio started 03/09/23 Tech to contact patient with dose instructions as noted. Ivania Martino RPh 11/29/2023, 9:04 AM documented in this encounter Plan of Treatment Upcoming Encounters Date Type Department Care Team (Late st Contact Info) Description 12/12/2023 9:30 AM EDT Laboratory [facility], [facility] [address] [place] [address] [facility] [address] [place] [address] 12/13/2023 6:15 AM EDT Anticoagulation Pharmacy Call Center [address] [facility] [place] [address] [facility] [address] 60 [facility] [place] [address] 01/24/2024 8:00 AM EDT Imaging Radiology [facility] 1st [facility] [address] [place] [address] 01/24/2024 9:20 AM EDT Office Visit Family Practice [facility] [address] [place] [address] Alicia Meyers CRNP [address] [place] [address] 11/10/2024 8:20 AM EST Office Visit [facility] [address] [place] [facility] [place] [address] Campos Lange MD [address] [facility] [place] [address] Scheduled Procedures Name Priority Associated Diagnoses Date/Ti me COLONOSCOPY FLEXIBLE PROXIMAL DIAGNOSTIC Recall History of colon polyps Health Maintenance Due Date Last Done Comments Zoster Vaccines (1 of 2) 2006 Depression Screening 07/19/2021 07/19/2020 COVID-19 Vaccine ( season) 2023 09/24/2021, 11/18/2020, 10/23/2020 COLONOSCOPY-EVERY 5 YRS AGES 18-100 07/29/2023 07/29/2018, 07/29/2018, 01/30/2007 CKD PHOS USE SMARTSET 53446 11/07/202310/19, 07/23/2019, 03/25/2014 Mammogram 01/23/2024 01/22/2023, 05/0 04/2023, 01/03/2022, Additional history exists CKD HGB USE SMARTSET 32427 04/30/202404/30, 04/30/2023, 11/07/2022, Additional history exists GFR [...] Discontinued 08/19/2014, 1211/2013, 04/03/2013, Additional history exists Influenza Vaccine (FLU [...] and were consensually agreed upon. Care Teams Reactor Service Operator Relationship Specialty Start Date End Date Campos Lange MD [address] [place] [address] PCP - General Family Medicine 10/07/15 documented as of this encounter
--- OUTSIDE RECORDS SUMMARY | 2024-04-11 00:09 | External Medical Summary | Summary of Care ---
Author Name Unknown Organization [facility] Address [address] [place] [address] Phone [phone] Care Team Providers Care Museum Educator Name Role Phone Campos Lange MD Primary Care Provider +1- [phone] Reason for Visit * Reason Comments Outpatient Testing Encounter Details Date Type Department Care Team (Late st Contact Info) Description 11/28/2023 9:30 AM EDT Laboratory Laboratory, [place] [address] [place] [address] [place] [address] [place] [address] History of pulmonary embolism Allergies No known active allergiesdocumented as of this encounter (statuses as of 11/28/2023) Medications Medication Sig Dispensed Refills Start Date [...] Nasal Suspension (Flonase Allergy Relief) Administer 1 [place] into nostril in the morning. 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 04/05/2010 [...] as of this encounter (statuses as of 11/28/2023) Immunizations Name Administration Dates Next Due COVID-19 mRNA, LNP-s, No Pre serve, 2-Dose Series (Moderna) 11/18/2020,10/23/2020 COVID-19, mRNA, LNP-s, PF, B ooster, 100mcg/0.5mg (Moderna) 09/24/2021 Pneumococcal Conjugate Vacci ne, 20-valent ([id number]) 11/07/2023 Pneumococcal Polysaccharide PPV23 (Pneumovax) 11/04/2021 Seasonal [...] Care Team (Late st Contact Info) Description 11/29/2023 6:15 AM EDT Anticoagulation Pharmacy Call Center WB [address] [facility] [place] [address] [facility] [address] 60 [facility] [place] [address] 01/24/2024 8:00 AM EDT Imaging Radiology [facility] [address] [place] [address] 01/24/2024 9:20 AM EDT Office Visit Family Practice [facility] [address] [address] Alicia Meyers CRNP [address] [place] [place] [address] 11/10/2024 8:20 AM EST [address] [phone] Campos Lange MD [address] [place] [address] Pending Results Name Type Priority Associated Diagnoses Date /Time PT INR Lab Routine History of pulmonary embolism 11/28/2023 9:23 AM EDT Scheduled Procedures Name Priority Associated Diagnoses Date/Ti me COLONOSCOPY FLEXIBLE PROXIMAL DIAGNOSTIC Recall History of colon polyps Health Maintenance Due Date Last Done Comments Zoster Vaccines (1 of 2) 2006 Depression Screening 07/19/2021 07/19/2020 COVID-19 Vaccine ( season) 2023 09/24/2021, 11/18/2020, 10/23/2020 COLONOSCOPY-EVERY 5 YRS AGES 18-100 07/29/2023 07/29/2018, 07/29/2018, 01/30/2007 CKD PHOS USE SMARTSET 40170 11/07/202310/19, 07/23/2019, 03/25/2014 Mammogram 01/23/2024 01/22/2023, 0504/2023, 01/03/2022, Additional history exists CKD HGB USE SMARTSET 70893 04/30/202404/30, 04/30/2023, 11/07/2022, Additional history exists GFR [...] and were consensually agreed upon. Care Teams Museum Educator Relationship Specialty Start Date End Date Campos Lange MD [address] [place] [address] PCP - General Family Medicine 10/07/15 documented as of this encounter
--- OUTSIDE RECORDS SUMMARY | 2024-04-11 00:09 | External Medical Summary | Summary of Care ---
Author Name Unknown Organization [facility] Address [address] [place] [address] Phone [phone] Care Team Providers Care Branch Administrator Name Role Phone Campos Lange MD Primary Care Provider +1- [phone] Reason for Referral * Ancillary Services (Within 30 days (routine)) - Authorized Specialty Diagnoses / Procedures Referred By Daniele t Referred To Contact Gastroenterology Diagnoses Screen for colon cancer Campos Lange MD [address] [place] [address] Referral ID Status Reason Start Date Expiration Date Visits Requested Visits Authorized [id number] Authorized Ancillary Services Required 11/07/2023 999 999 Question Answer Referral Priority Within 30 days (routine) Where should this appointment be scheduled? Rachel Comments ALERT: Do not order for pediatric patients (18 years or younger). Cancel off screen and order PEDS GASTROENTEROLOGY CONSULT (Type: 1 visit only-Evaluate and Treat) The following Pt. Instructions are available: - Gastro Colonoscopy Prep Instructions [53488] - Gastro Colonoscopy Prep Instructions (Malay Version) [69798] Go to the Pt. Instructions section within the Visit Navigator to access. Colonoscopy ASGE Guidelines: Postadenoma resection: 1-2 tubular adenomas of less than 1 cm (5 yr intervals) ADDITIONAL INFORMATION 1. Is the patient on Coumadin? Yes--Coumadin can be stopped for 5 days 2. Is the patient on Pradaxa? No Reason for Visit * Reason Comments Follow Up Yearly return Encounter Details Date Type Department Care Team ([facility] st Contact Info) Description 11/07/2023 8:00 AM EST Office Visit [facility] [address] [place] [address] Campos Lange MD [address] [place] [address] Stage 3a chronic kidney disease (HCC)*; Screen for colon cancer; HTN, goal below 140/90; Hypothyroidism, unspecified type; Need for pneumococcal vaccination Allergies No known active allergiesdocumented as of [...] Nasal Suspension (Flonase Allergy Relief) Administer 1 [place] into nostril in the morning. 15.8 [...] (Moderna) 09/24/2021 Pneumococcal Conjugate Vacci ne, 20-valent ([id number]) 11/07/2023 Pneumococcal Polysaccharide PPV23 (Pneumovax) 11/04/2021 Seasonal [...] Date Smoking Tobacco: Never Smokeless Tobacco: Never Tobacco Cessation:Counseling Given: Not Answered Alcohol Use Standard Drinks/Week Comments No 0 [...] Sign Reading Time Taken Comments Blood Pressure 134/82 11/07/2023 7:53 AM EST Pulse 72 11/07/2023 7:53 AM EST Temperature - - Respiratory Rate 17 11/07/2023 7:53 AM EST Oxygen Saturation 92% 11/07/2023 7:53 AM EST Inhaled Oxygen Concentration - - Weight 122.3 kg (269 lb 9.6 oz) 11/07/2023 7:53 AM EST Height - - Body Mass Index 45.03 10/16/2023 7:54 AM EST documented in this [...] as of this encounter Progress Notes * Campos Lange MD - 11/07/2023 8:56 AM EST Flu, pneumo Check Terr documented in this encounter Nursing Notes * Janel Madrigal LPN - 11/07/2023 7:58 AM EST The patient has been properly identified by confirmation of name and date of . Chief Complaint Patient presents with Follow Up Yearly return documented in this encounter Plan of Treatment Upcoming Encounters Date Type Department Care Team (Late st Contact Info) Description 11/20/2023 11:40 AM EST Laboratory Laboratory, [address] [place] [address] Vidhi Lazo [facility] [address] [facility] [place] [address] 11/21/2023 6:15 AM EST On License Of [facility] Pharm[facility] Call Center [address] [facility] [place] [address] [facility] [address] [facility] [place] [address] 11/28/2023 7:00 AM EDT Office Visit Family Practice [facility] [address] [facility] [place] [address] Alicia Meyers CRNP [address] [place] [address] 11/28/2023 8:15 AM EDT Office Visit Orthopaedics [facility] [address] [place] [address] Jurgen Hare, [address] [facility] [address] 01/24/2024 8:00 AM EDT Imaging Radiology [facility] 1st [facility] [address] [facility] [place] [address] 11/10/2024 8:20 AM EST Office Visit [facility] [address] [place] [address] Campos Lange MD [address] [place] [address] Pending Results Name Type Priority Associated Diagnoses Date /Time ALBUMIN / CREATININE RATIO, URINE Lab Routine Stage 3a chronic kidney disease (HCC) HTN, goal below 140/90 11/13/2023 2:16 PM EST Scheduled Orders Name Type Priority Associated Diagnoses Orde r Schedule ALBUMIN / CREATININE RATIO, URINE Lab Routine Stage 3a chronic kidney disease (HCC) HTN, goal below 140/90 Expected: 11/13/2023 (Approximate), Expires: 11/12/2024 Scheduled Procedures Name Priority Associated Diagnoses Date/Ti me COLONOSCOPY FLEXIBLE PROXIMAL DIAGNOSTIC Recall History of colon polyps Scheduled Referrals Name Type Priority Associated Diagnoses Orde r Schedule COLONOSCOPY, GI REFERRAL OP Referral Within 30 days (routine) Screen for colon cancer Ordered: 11/07/2023 Health Maintenance Due Date Last Done Comments Zoster Vaccines (1 of 2) 2006 Depression Screening 07/19/2021 07/19/2020 COVID-19 Vaccine ( season) 2023 09/24/2021, 11/18/2020, 10/23/2020 COLONOSCOPY-EVERY 5 YRS AGES 18-100 07/29/2023 07/29/2018, 07/29/2018, 01/30/2007 Albumin/Creatinine Ratio 11/07/2023 11/07/2022 CKD PHOS USE SMARTSET 71056 11/07/2023 0209/2022, 07/23/2019, 03/25/2014 Mammogram 01/23/2024 01/22/2023, 04/2023, 01/03/2022, Additional history exists CKD HGB USE SMARTSET 90957 04/30/202404/30, 04/30/2023, 11/07/2022, Additional history exists GFR [...] Not on filedocumented as of this encounter Results * (ABNORMAL) TSH WITH FREE T4 IF INDICATED (11/07/2023 9:21 AM EST) TSH 5.54(H) 0.27 - 4.20 uIU/mL 11/07/2023 3:46 PM EST LABORATORY GM Blood Venous blood specimen / Unknown Venipuncture / Unknown 11/07/2023 9:21 AM EST 11/07/2023 9:21 AM EST Campos Lange MD LAB BLOOD ORDERABL ES LABORATORY [facility] [address] [place] [address] * (ABNORMAL) COMPREHENSIVE METABOLIC PANEL (11/07/2023 9:21 AM EST) BUN 17 6 - 20 mg/dL 11/07/2023 3:04 PM EST LABORATORY [facility] Creatinine 1.1(H) 0.5 - 1.0 mg/dL 11/07/2023 3:04 PM EST LABORATORY [facility] Estimated Glomerular Filtration Rate 53(L) >=60 mL/min 11/07/2023 3:04 PM EST LABORATORY [facility] Comment:eGFR is calculated b ased on the CKD-EPI 2020 equation Sodium 143 135 - 146 mmol/L 11/07/2023 3:04 PM EST LABORATORY [facility] Potassium 4.1 3.5 - 5.1 mmol/L 11/07/2023 3:04 PM EST LABORATORY [facility] Chloride 102 98 - 107 mmol/L 11/07/2023 3:04 PM EST LABORATORY [facility] CO2 29 22 - 32 mmol/L 11/07/2023 3:04 PM EST LABORATORY [facility] Anion Gap 12 7 - 15 mmol/L 11/07/2023 3:04 PM EST LABORATORY [facility] Glucose 95 70 - 120 mg/dL 11/07/2023 3:04 PM EST LABORATORY [facility] Albumin 4.5 3.8 - 5.0 g/dL 11/07/2023 3:04 PM EST LABORATORY [facility] AST 55(H) 10 - 35 U/L 11/07/2023 3:04 PM EST LABORATORY [facility] Alkaline Phosphatase 129 35 - 130 U/L 11/07/2023 3:04 PM EST LAB[facility]ATORY [facility] Bilirubin, Total 0.7 <=1.2 mg/dL 11/07/2023 3:04 PM EST LAB[facility]ATORY [facility] Calcium 9.1 8.4 - 10.2 mg/dL 11/07/2023 3:04 PM EST LAB[facility]ATORY [facility] Protein 6.9 6.0 - 8.3 g/dL 11/07/2023 3:04 PM EST LAB[facility]ATORY [facility] ALT 39(H) 10 - 35 U/L 11/07/2023 3:04 PM EST LABORATORY [facility] Blood Venous blood specimen / Unknown Venipuncture / Unknown 11/07/2023 9:21 AM EST 11/07/2023 9:21 AM EST Campos Lange MD LAB BLOOD ORDERABL ES LABORATORY [facility] [address] [place] [address] documented in this encounter Visit Diagnoses Diagnosis Stage 3a chronic kidney disease (HCC)- Primary Screen for colon cancer Special screening for malignant neoplasms, colon HTN, goal below 140/90 Unspecified essential hypertension Hypothyroidism, unspecified type Need for pneumococcal vaccination Need for prophylactic vaccination against streptococcus pneumoniae (pneumococcus) documented in this encounter Advance Directives Latest [...] and were consensually agreed upon. Care Teams Branch Administrator Relationship Specialty Start Date End Date Campos Lange MD [address] [place] [facility] [place] [address] PCP - General Family Medicine 10/07/15 documented as of this encounter
--- OUTSIDE RECORDS SUMMARY | 2024-04-11 00:09 | External Medical Summary | Summary of Care ---
Author Name Unknown Organization [facility] Address [address] [place] [address] Phone [phone] Care Team Providers Care Emergency Man Name Role Phone Campos Lange MD Primary Care Provider +1- [phone] Encounter Details Date Type Department Care Team (Late st Contact Info) Description 11/07/2023 Telephone [facility] [address] [place] [address] Campos Lange MD [address] [place] [address] Allergies No known active allergiesdocumented as of this encounter (statuses as of 11/21/2023) Medications Medication Sig Dispensed Refills Start Date [...] Nasal Suspension (Flonase Allergy Relief) Administer 1 [place] into nostril in the morning. 15.8 mL [...] as of this encounter (statuses as of 11/21/2023) Active Problems Problem Noted Date Diagnosed Date [...] as of this encounter (statuses as of 11/21/2023) Resolved Problems Problem Noted Date Diagnosed Date [...] ROTATOR CUFF SYNDROME, RIGHT SHOULDER 04/05/2010 07/18/2019 alf current use of ant icoagulant therapy 04/05/2010 [...] as of this encounter (statuses as of 11/21/2023) Immunizations Name Administration Dates Next Due COVID-19 mRNA, LNP-s, No Pre serve, 2-Dose Series (Moderna) 11/18/2020,10/23/2020 COVID-19, mRNA, LNP-s, PF, B ooster, 100mcg/0.5mg (Moderna) 09/24/2021 Pneumococcal Conjugate Vacci ne, 20-valent ([id number]) 11/07/2023 Pneumococcal Polysaccharide PPV23 (Pneumovax) 11/04/2021 Seasonal [...] encounter Miscellaneous Notes * Telephone Encounter - Hortensia Bryan OSA - 11/07/2023 9:22 AM EST 11/07/23 Pt needs an appt for a Colonoscopy. Answers to questions: Yes, takes Coumadin Mornings are best if possible. [phone] Please call pt and advise on date and time of procedure. documented in this encounter Plan of Treatment Upcoming Encounters Date Type Department Care Team (Late st Contact Info) Description 11/28/2023 6:15 AM EDT Anticoagulation Pharmacy Call Center [address] [facility] [place] [address] [facility] [address] 60 [facility] [place] [address] 11/28/2023 7:00 AM EDT Office Visit Family Practice [facility] [address] [place] [address] Alicia Meyers CRNP [address] [place] [address] 11/28/2023 8:15 AM EDT Office Visit Orthopaedics [facility] [address] [place] [address] Jurgen Hare, DO [address] [place] [address] 01/24/2024 8:00 AM EDT Imaging Radiology [address] [place] [address] 11/10/2024 8:20 AM EST Office Visit [facility] [address] [place] [phone] Campos Lange MD [address] [place], [place] [phone] Scheduled Procedures Name Priority Associated Diagnoses Date/Ti me COLONOSCOPY FLEXIBLE PROXIMAL DIAGNOSTIC Recall History of colon polyps Health Maintenance Due Date Last Done Comments Zoster Vaccines (1 of 2) 2006 Depression Screening 07/19/2021 07/19/2020 COVID-19 Vaccine ( season) 2023 09/24/2021, 11/18/2020, 10/23/2020 COLONOSCOPY-EVERY 5 YRS AGES 18-100 07/29/2023 07/29/2018, 07/29/2018, 01/30/2007 CKD PHOS USE SMARTSET 06342 11/07/202310/19, 07/23/2019, 03/25/2014 Mammogram 01/23/2024 01/22/2023, 0504/2023, 01/03/2022, Additional history exists CKD HGB USE SMARTSET 03400 04/30/202404/30, 04/30/2023, 11/07/2022, Additional history exists GFR [...] and were consensually agreed upon. Care Teams Emergency Man Relationship Specialty Start Date End Date Campos Lange MD [address] [place] [facility] [place] [address] PCP - General Family Medicine 10/07/15 documented as of this encounter
--- OUTSIDE RECORDS SUMMARY | 2024-04-11 00:09 | External Medical Summary | Summary of Care ---
Author Name Unknown Organization [facility] Address [address] [place] [address] Phone [phone] Care Team Providers Care Lining Ironer Name Role Phone Campos Lange MD Primary Care Provider +1- [phone] Reason for Visit * Reason Comments Outpatient Testing Encounter Details Date Type Department Care Team (Late st Contact Info) Description 11/13/2023 2:20 PM EST Laboratory Laboratory, [address] [address] St, Specimen Drop Off [address] [address] Stage 3a chronic kidney disease (HCC); HTN, goal below 140/90 Allergies No known active allergiesdocumented as of [...] Nasal Suspension (Flonase Allergy Relief) Administer 1 [place] into nostril in the morning. 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 [...] (Moderna) 09/24/2021 Pneumococcal Conjugate Vacci ne, 20-valent ([id number]) 11/07/2023 Pneumococcal Polysaccharide PPV23 (Pneumovax) 11/04/2021 Seasonal [...] Description 11/20/2023 11:40 AM EST Laboratory Laboratory, [facility] [address] [place] [address] [facility] [address] [place] [address] 11/21/2023 6:15 AM EST Anticoagulation Pharmacy Call Center WB [address] [facility] [place] [address] [facility] 58 60 [facility] [place] [address] 11/28/2023 7:00 AM EDT Office Visit Family Practice [facility] [address] [place] [address] Alicia Meyers CRNP [address] [place] [address] 11/28/2023 8:15 AM EDT Office Visit Orthopaedics [facility] [address] [place] [address] Jurgen Hare, DO [address] [place] [address] 01/24/2024 8:00 AM EDT Imaging Radiology [address] [place] [address] 11/10/2024 8:20 AM EST Office Visit [facility] [address] [place] [phone] Campos Lange MD [address] [facility] [place] [phone] Pending Results Name Type Priority Associated Diagnoses Date /Time ALBUMIN / CREATININE RATIO, URINE Lab Routine Stage 3a chronic kidney disease (HCC) HTN, goal below 140/90 11/13/2023 2:16 PM EST Scheduled Procedures Name Priority Associated Diagnoses Date/Ti me COLONOSCOPY FLEXIBLE PROXIMAL DIAGNOSTIC Recall History of colon polyps Health Maintenance Due Date Last Done Comments Zoster Vaccines (1 of 2) 2006 Depression Screening 07/19/2021 07/19/2020 COVID-19 Vaccine ( season) 2023 09/24/2021, 11/18/2020, 10/23/2020 COLONOSCOPY-EVERY 5 YRS AGES 18-100 07/29/2023 07/29/2018, 07/29/2018, 01/30/2007 Albumin/Creatinine Ratio 11/07/2023 11/07/2022 CKD PHOS USE SMARTSET 68310 11/07/202310/19, 07/23/2019, 03/25/2014 Mammogram 01/23/2024 01/22/2023, 0504/2023, 01/03/2022, Additional history exists CKD HGB USE SMARTSET 69921 04/30/202404/30, 04/30/2023, 11/07/2022, Additional history exists GFR [...] as of this encounter Visit Diagnoses Diagnosis Stage 3a chronic kidney disease (HCC) HTN, goal below 140/90 Unspecified essential hypertension documented in this encounter Advance Directives Latest [...] and were consensually agreed upon. Care Teams Lining Ironer Relationship Specialty Start Date End Date Campos Lange MD [address] [place] [address] PCP - General Family Medicine 10/07/15 documented as of this encounter
--- OUTSIDE RECORDS SUMMARY | 2024-04-11 00:09 | External Medical Summary | Summary of Care ---
Author Name Unknown Organization [facility] Address [address] [place] [address] Phone [phone] Care Team Providers Care Mig Welder Name Role Phone Campos Lange MD Primary Care Provider +1- [phone] Reason for Visit * Reason Comments Follow Up Patient presents in office today for an 8 week follow-up visit. Encounter Details Date Type Department Care Team (Late st Contact Info) Description 11/28/2023 7:00 AM EDT Office Visit Family Practice [facility] [address] [place] [address] Alicia Meyers CRNP [address] [facility] [place] [address] Chronic cough*; Mild persistent asthma without complication; Chronic heart failure with preserved ejection fraction (HCC); Stage 3a chronic kidney disease (HCC); Morbid obesity with BMI of 40.0-44.9, adult (HCC); Hypothyroidism, postablative; Hypertensive heart and kidney disease with chronic diastolic congestive heart failure and stage 3a chronic kidney disease (HCC) Allergies No known active allergiesdocumented as [...] Nasal Suspension (Flonase Allergy Relief) Administer 1 [place] into nostril in the morning. 15.8 mL [...] 60 Blister Dosing Unit 3 11/28/2023 Active Benzonatate 100 MG Oral Capsule Take 1 Capsule by mouth 3 times a day as needed for Cough. 30 Capsule 1 09/24/2023 11/28/19 24 Discontinued Fluticasone Propionate HFA 110 MCG/ACT Inhalation Aerosol (Flovent HFA) Inhale 2 Puffs by mouth in the morning and 2 Puffs before bedtime. 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 Path report describes a [...] (Moderna) 09/24/2021 Pneumococcal Conjugate Vacci ne, 20-valent ([id number]) 11/07/2023 Pneumococcal Polysaccharide PPV23 (Pneumovax) 11/04/2021 Seasonal [...] Sign Reading Time Taken Comments Blood Pressure 132/78 11/28/2023 7:05 AM EDT Pulse 68 11/28/2023 7:05 AM EDT Temperature - - Respiratory Rate 18 11/28/2023 7:05 AM EDT Oxygen Saturation 96% 11/28/2023 7:05 AM EDT Inhaled Oxygen Concentration - - Weight 122.9 kg (271 lb) 11/28/2023 7:05 AM EDT Height 165.1 cm (5' 5") 11/28/2023 7:05 AM EDT Body Mass Index 45.1 11/28/2023 7:05 AM EDT documented in this [...] as of this encounter Progress Notes * Mira AliciaDEEPTHI Ramirez - 11/28/2023 7:05 AM EDT FOLLOW UP History of Present Illness: Taylor Kraft is a 68 year old female presenting for follow up. PFT completed and showing restriction. She has been on flovent since September. Interim History: Still coughing all night Unknown triggger Compared to initial visit- cough is improved. Using albuterol 2 puffs 3-4 times Respiratory Symptoms: Cough: at night mostly, every now and then during the day. Sputum: productive of thicker mucous Dyspnea:denies Hemoptysis: denies Wheeze: occ Triggers: unknown Orthopnea: DENIES Oxygen: DENIES CPAP/BIPAP use:DENIES GERD symptomsCONTROLLED WITH OMEPRAZOLE Sinus Symptoms controlled with singulair and zyrtec. Tobacco use: Social History Tobacco Use Smoking Status Never Smokeless Tobacco Never PMH: Patient Active Problem List Diagnosis Code Morbidly obese ([facility]) E66.01 History of pulmonary embolism Z86.711 Hypothyroidism, postablative E89.0 Stage 3a chronic kidney disease N18.31 History of thyroid cancer Z85.850 Oropharyngeal dysphagia R13.12 Hilar adenopathy R59.0 PAF (paroxysmal atrial fibrillation) ([facility]) I48.0 Chronic heart failure with preserved ejection fraction ([facility]) I50.32 HTN, goal below 130/80 I10 Upper respiratory tract infection J06.9 Mild persistent asthma with acute exacerbation J45.31 Current Outpatient Medications Medication Sig Dispense Refill VITAMIN D 400 UNIT PO TABS 2 Tab Oral Daily qs 0 Omeprazole 20 MG Oral Capsule Delayed Release (PriLOSEC) TAKE ONE CAPSULE EVERY DAY 1 HOUR BEFORE THE FIRST MEAL OF THE DAY 90 Capsule 3 Fluticasone Propionate 50 MCG/ACT Nasal Suspension (Flonase Allergy Relief) Administer 1 [place] intonostril in the morning. 15.8 mL 3 [...] by mouth at bedtime. 90 Tablet 3 Benzonatate 100 MG Oral Capsule Take 1 Capsule by mouth 3 times a day as needed for Cough. 30 Capsule 1 Fluticasone Propionate HFA 110 MCG/ACT Inhalation Aerosol (Flovent HFA) Inhale 2 Puffs by mouth in the morning and 2 Puffs before bedtime. 12 g 5 Current Facility-Administered Medications Medication Dose Route Frequency Provider Last Rate Last Admin Albuterol Sulfate (Proventil) (2.5 MG/3ML) 0.083% inhalation solution 2.5 mg 2.5 mg Nebulizer PRN RhedAlicia CRNP Albuterol Sulfate (Proventil) (5 MG/ML) 0.5% *conc* inhalation solution 2.5 mg 2.5 mg Nebulizer PRNRAlicia bautista CRNP 2.5 mg at 10/16/23 1053 Review of patient's allergies indicates: No Known Allergies Past Surgical History: Procedure Laterality Date COLONOSCOPY W/ BIOPSY (RECTUM) 01/30/07 path-normal, repeat 2017 COLONOSCOPY, DIAGNOSTIC (RECTUM) 07/29/2018 adenomatous polyp, diverticulosis, repeat 5 yrs/COLONOSCOPY FLEXIBLE PROXIMAL DIAGNOSTIC performed by Anali James MD at [facility] FOLLOWUP THYROID SURGERY Left 12/03/2014 THYROIDECTOMY FOLLOWING PREVIOUS REMOVAL PORTION THYROID performed by Gurmeet Sood MD at [facility] INFORMATION labor and del x2 LIGATE/CUT OVIDUCT(S) PARATHYROID AUTOTRANSPLANTATION 06/25/09 PARATHYROID AUTOTRANSPLANTATION performed by DIAZ BOX at [facility] REMOVAL OF NECK LYMPH NODES Left 11/10/2015 lymph node dissection for thyroid cancer REMOVAL OF THYROID FOR TUMOR 06/25/09 THYROIDECTOMY WITH LIMITED NECK DISSECTION performed by DIAZ BOX at [facility] TREATMENT OF INCOMPLETE x6 including tubl preg post tubal lig Review of Systems: Review of Systems Constitutional: Negative for fatigue. Respiratory: Positive for cough and wheezing. Negative for chest tightness and shortness of breath. Cardiovascular: Negative for chest pain, palpitations and leg swelling. Gastrointestinal: Negative for abdominal pain. Neurological: Negative for dizziness and syncope. Psychiatric/Behavioral: Positive for sleep disturbance. Physical Exam: LMP 12/12/2006 Physical Exam HENT: Head: Normocephalic. Eyes: Pupils: Pupils are equal, round, and reactive to light. Cardiovascular: Rate and Rhythm: Normal rate and regular rhythm. Pulmonary: Effort: Pulmonary effort is normal. Breath sounds: Decreased breath sounds present. Musculoskeletal: General: Normal range of motion. Cervical back: Normal range of motion. Skin: General: Skin is warm and dry. Nails: There is no clubbing. Neurological: General: No focal deficit present. Mental Status: She is alert and oriented to person, place, and time. Psychiatric: Mood and Affect: Mood normal. Behavior: Behavior normal. Thought Content: Thought content normal. Judgment: Judgment normal. Assessment and Plan: 1. Chronic cough Ongoing cough at night Overall improved from baseline Stop flovent Start breo 200 Failed asthmanex, q ramone, flovent Continue albuterol 2. Mild persistent asthma without complication NOT CONTROLLED WITH DAILY COUGH 3. Chronic heart failure with preserved ejection fraction (HCC) Stable No increased swelling or sob 4. Stage 3a chronic kidney disease (HCC) stable 5. Morbid obesity with BMI of 40.0-44.9, adult ([facility]) Contributing to restriction on PFT 6. Hypothyroidism, postablative TSH is mildly elevated On levothyroxine She will email endocrine at [facility] 7. Hypertensive heart and kidney disease with chronic diastolic congestive heart failure and stage 3a chronic kidney disease (HCC) I have advised the patient to call our office incase of any worsening or new symptoms. I spent a total of 40-54 minutes (exact time 40 mins) on the date of service in preparation, delivery, and documentation of the care provided to Taylor Kraft excluding any time spent in the performance of separately billed services. Janet, RUDY, DEEPTHI [facility] Pulmonary and Sleep Medicine documented in this encounter Nursing Notes * Kelley Barrera MED ASSIST - 11/28/2023 7:04 AM EDT The patient has been properly identified by confirmation of name and date of . Chief Complaint Patient presents with Follow Up Patient presents in office today for an 8 week follow-up visit. documented in this encounter Plan of Treatment Upcoming Encounters Date Type Department Care Team (Late st Contact Info) Description 11/28/2023 9:30 AM EDT Laboratory Laboratory, [place] [address] [place] [phone] [place] [address] [place] [address] 11/29/2023 6:15 AM EDT Anticoagulation Pharmacy Call Center [address] [place] [address] [facility] [address] 60 [facility] [place] [address] 01/24/2024 8:00 AM EDT Imaging Radiology [facility] 1st [facility] [address] [facility] [place] [address] 01/24/2024 9:20 AM EDT Office Visit Family Practice [facility] [address] [facility] [place] [address] Alicia Meyers CRNP [address] [place] [address] 11/10/2024 8:20 AM EST Office Visit [facility] [address] [facility] [address] Campos Lange MD [address] [place] [address] Scheduled Procedures Name Priority Associated Diagnoses Date/Ti me COLONOSCOPY FLEXIBLE PROXIMAL DIAGNOSTIC Recall History of colon polyps Health Maintenance Due Date Last Done Comments Zoster Vaccines (1 of 2) 2006 Depression Screening 07/19/2021 07/19/2020 COVID-19 Vaccine ( season) 2023 09/24/2021, 11/18/2020, 10/23/2020 COLONOSCOPY-EVERY 5 YRS AGES 18-100 07/29/2023 07/29/2018, 07/29/2018, 01/30/2007 CKD PHOS USE SMARTSET 50234 11/07/202310/19, 07/23/2019, 03/25/2014 Mammogram 01/23/2024 01/22/2023, 0504/2023, 01/03/2022, Additional history exists CKD HGB USE SMARTSET 23987 04/30/202404/30, 04/30/2023, 11/07/2022, Additional history exists GFR [...] of this encounter Visit Diagnoses Diagnosis Chronic cough- Primary Cough Mild persistent asthma without complication Unspecified asthma Chronic heart failure with preserved ejection fraction (HCC) Stage 3a chronic kidney disease (HCC) Morbid obesity with BMI of 40.0-44.9, adult (HCC) Morbid obesity Hypothyroidism, postablative Other postablative hypothyroidism Hypertensive heart and kidney disease with chronic diastolic congestive heart failure and stage 3a chronic kidney disease (HCC) documented in this encounter Advance Directives Latest [...] and were consensually agreed upon. Care Teams Mig Welder Relationship Specialty Start Date End Date Campos Lange MD [address] [place] [address] PCP - General Family Medicine 10/07/15 documented as of this encounter
--- OUTSIDE RECORDS SUMMARY | 2024-04-11 00:09 | External Medical Summary ---
Author Name Unknown Address Unknown Organization K01[place] [place] [facility] [address] [place] [address] Laboratory Report Ordering Provider Test Date Status MARLENE COVARRUBIAS 11/28/2023 09:23:28 Final Please draw PT/INR every 1-4 weeks or as requested by the [facility]

Warfarin Therapy
INR: 2.0-3.0 conventional anticoagulation
INR: 2.5-3.5 high intensity anticoagulation Observation Date Value Abnormality Reference (Units ) Status PT 11/28/2023 09:23:28 21.4 Above high normal 11 .6-15.2 (seconds) Final INR 11/28/2023 09:23:28 1.8 Above high normal 0. 8-1.2 Final Performing Location [facility] [place] [facility] [place] [address]
--- OUTSIDE RECORDS SUMMARY | 2024-04-11 00:09 | External Medical Summary | Summary of Care ---
Author Name Unknown Organization [facility] Address [address] [place] [address] Phone [phone] Care Team Providers Care Gravity Prospecting Observer Helper Name Role Phone Campos Lange MD Primary Care Provider +1- [phone] Reason for Visit * Reason Onset Date Comments Appointment 11/07/2023 Encounter Details Date Type Department Care Team (Late st Contact Info) Description 11/07/2023 Telephone [facility] [address] [place] [address] Campos Lange MD [address] [place] [address] Appointment Allergies No known active allergiesdocumented as of this encounter (statuses as of 12/12/2023) Medications Medication Sig Dispensed Refills Start Date End Date Status VITAMIN D 400 UNIT PO TABSIndications:H ypocalcemia 2 Tab Oral Daily qs 0 06/30/2009 Active Fluticasone Propionate 50 MCG/ACT Nasal Suspension (Flonase Allergy Relief) Administer 1 [place] into nostril in the morning. 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 * Telephone Encounter - Briana Greenberg OSA - 12/03/2023 12:00 PM EDT Lmm * Telephone Encounter - Hortensia Bryan OSA - 11/07/2023 9:22 AM EST 11/07/23 Pt needs an appt for a Colonoscopy. Answers to questions: Yes, takes Coumadin Mornings are best if possible. [phone] Please call pt and advise on date and time of procedure. documented in this encounter Plan of Treatment Upcoming Encounters Date Type Department Care Team (Late st Contact Info) Description 12/13/2023 6:15 AM EDT [facility]tico[facility] Call [facility] [address] [facility] [place] [address] [facility], [facility] 58 60 [facility] [place] [address] 01/24/2024 8:00 AM EDT Imaging Radiology [address] 132 [facility] [place] [address] 01/24/2024 9:20 AM EDT Office Visit Family Practice [facility] 132 [place] [address] Alicia Meyers CRNP [address] [facility] [address] 11/10/2024 8:20 AM EST Office Visit [facility] [address] [place] [address] Campos Lange MD [address] [place], [place] [phone] Scheduled Procedures Name Priority Associated Diagnoses Date/Ti me COLONOSCOPY FLEXIBLE PROXIMAL DIAGNOSTIC Recall History of colon polyps Health Maintenance Due Date Last Done Comments Zoster Vaccines (1 of 2) 2006 Depression Screening 07/19/2021 07/19/2020 COVID-19 Vaccine ( season) 2023 09/24/2021, 11/18/2020, 10/23/2020 COLONOSCOPY-EVERY 5 YRS AGES 18-100 07/29/2023 07/29/2018, 07/29/2018, 01/30/2007 CKD PHOS USE SMARTSET 78668 11/07/202310/19, 07/23/2019, 03/25/2014 Mammogram 01/23/2024 01/22/2023, 04/2023, 01/03/2022, Additional history exists CKD HGB USE SMARTSET 34676 04/30/202404/30, 04/30/2023, 11/07/2022, Additional history exists GFR [...] and were consensually agreed upon. Care Teams Gravity Prospecting Observer Helper Relationship Specialty Start Date End Date aCmpos Lange MD [address] [place] [address] PCP - General Family Medicine 10/07/15 documented as of this encounter
--- OUTSIDE RECORDS SUMMARY | 2024-04-11 00:09 | External Medical Summary | Summary of Care ---
Author Name Unknown Organization [facility] Address [address] [place] [address] Phone [phone] Care Team Providers Care Rigger Supervisor Name Role Phone Cyn Gore MD Primary Care Provider +1- [phone] Reason for Visit * Reason Comments eRx-Medication Refill Encounter Details Date Type Department Care Team (Late st Contact Info) Description 12/04/2023 Refill [facility] [address] [place] [address] Cyn Gore MD [address] [place] [address] Gastroesophageal reflux disease without esophagitis Allergies No known active allergiesdocumented as of this encounter (statuses as of 12/05/2023) Medications Medication Sig Dispensed Refills Start Date End Date Status VITAMIN D 400 UNIT PO TABSIndications:H ypocalcemia 2 Tab Oral Daily qs 0 06/30/2009 Active Fluticasone Propionate 50 MCG/ACT Nasal Suspension (Flonase Allergy Relief) Administer 1 [place] into nostril in the morning. 15.8 mL [...] THE DAY 90 Capsule 3 12/05/2023 Active Omeprazole 20 MG Oral Capsule Delayed Release (PriLOSEC)Indicat ions:Gastroesopha geal reflux disease without esophagitis TAKE ONE CAPSULE EVERY DAY 1 HOUR BEFORE THE FIRST MEAL OF THE DAY 90 Capsule 3 12/03/2022 12/05/19 24 Discontinued Hospital, Clinic, or Other Facility Administered Medication Ordered Dose Route Frequency Start Date End Date Status Albuterol Sulfate (Proventil) (2.5 MG/3ML) 0.083% inhalation solution 2.5 mgIndications:Chronic cough 2.5 mg NEBULIZER PRN 03/23/2023 03/22/2024 Active Albuterol Sulfate (Proventil) (5 MG/ML) 0.5% *conc* inhalation solution 2.5 mgIndications:Chronic cough 2.5 mg NEBULIZER PRN 03/23/2023 03/22/2024 Active documented as of this encounter (statuses as of 12/05/2023) Active Problems Problem Noted Date Diagnosed Date [...] as of this encounter (statuses as of 12/05/2023) Resolved Problems Problem Noted Date Diagnosed Date [...] as of this encounter (statuses as of 12/05/2023) Immunizations Name Administration Dates Next Due COVID-19 mRNA, LNP-s, No Pre serve, 2-Dose Series (Moderna) 11/18/2020,10/23/2020 COVID-19, mRNA, LNP-s, PF, B ooster, 100mcg/0.5mg (Moderna) 09/24/2021 Pneumococcal Conjugate Vacci ne, 20-valent ([id number]) 11/07/2023 Pneumococcal Polysaccharide PPV23 (Pneumovax) 11/04/2021 Seasonal [...] encounter Miscellaneous Notes * Telephone Encounter - Raven Sainz RPh - 12/05/2023 2:47 PM EDTSigned Prescriptions: Disp Refills Omeprazole 20 MG Oral Capsule Delayed Rele*90 Cap*3 Sig: TAKE 1 CAPSULE EVERY DAY 1 HOUR BEFORE THE FIRST MEAL OF THE DAYAuthorizing Provider: CYN GORE User: RAVEN SIANZ documented in this encounter Plan of Treatment Upcoming Encounters Date Type Department Care Team (Late st Contact Info) Description 12/12/2023 9:30 AM EDT Laboratory Laboratory, [facility] 132 [facility] [place] [phone] LazoVidhi g[address] [facility] 132 [facility] [place] [address] 12/13/2023 6:15 AM EDT Anticoagulation Pharmacy Call Center [address] [place] [address] [facility], [facility] 58 60 [facility] [place] [address] 01/24/2024 8:00 AM EDT Imaging Radiology [facility] 1st [facility] 132 [facility] [place] [address] 01/24/2024 9:20 AM EDT Office Visit Family [facility] 132 [place] [address] Alicia Meyers CRNP [address] [facility] [address] 11/10/2024 8:20 AM EST Office Visit [facility] [address] [place] [phone] Cyn Gore MD [address] [place] [address] Scheduled Procedures Name Priority Associated Diagnoses Date/Ti me COLONOSCOPY FLEXIBLE PROXIMAL DIAGNOSTIC Recall History of colon polyps Health Maintenance Due Date Last Done Comments Zoster Vaccines (1 of 2) 2006 Depression Screening 07/19/2021 07/19/2020 COVID-19 Vaccine ( season) 2023 09/24/2021, 11/18/2020, 10/23/2020 COLONOSCOPY-EVERY 5 YRS AGES 18-100 07/29/2023 07/29/2018, 07/29/2018, 01/30/2007 CKD PHOS USE SMARTSET 58076 11/07/202310/19, 07/23/2019, 03/25/2014 Mammogram 01/23/2024 01/22/2023, 04/2023, 01/03/2022, Additional history exists CKD HGB USE SMARTSET 77489 04/30/202404/30, 04/30/2023, 11/07/2022, Additional history exists GFR [...] as of this encounter Visit Diagnoses Diagnosis Gastroesophageal reflux disease without esophagitis Esophageal reflux documented in this encounter Advance Directives Latest [...] and were consensually agreed upon. Care Teams Rigger Supervisor Relationship Specialty Start Date End Date Cyn Gore MD [address] [place] [address] PCP - General Family Medicine 10/07/15 documented as of this encounter
--- OUTSIDE RECORDS SUMMARY | 2024-04-11 00:10 | External Medical Summary | Summary of Care ---
Author Name Unknown Organization [facility] Address [address] [place] [address] Phone [phone] Care Team Providers Care Pay Clerk Name Role Phone Campos Lange MD Primary Care Provider +1- [phone] Encounter Details Date Type Department Care Team (Late st Contact Info) Description 10/30/2023 Patient Reported Data Patient Survey Ortho OBERD Allergies No known active allergiesdocumented as of this encounter (statuses as of 10/30/2023) Medications Medication Sig Dispensed Refills Start Date [...] Nasal Suspension (Flonase Allergy Relief) Administer 1 [place] into nostril in the morning. 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 [place] [address] 10/31/2023 6:15 AM EST [facility] Call Center 58[address] [facility] [address] [facility] 58 60 [facility] [address] 11/07/2023 8:00 AM EST Office Visit [place] [address] [place] [phone] Campos Lange MD [address] [place] [address] 11/28/2023 7:00 AM EDT Office Visit Family [facility] [address] [facility] [place] [address] Alicia Meyers CRNP 132 [facility] [place] [address] 11/28/2023 8:15 AM EDT Office Visit Orthopaedics [facility] [address] [place] [address] Jurgen Hare, [address] [place] [address] 01/24/2024 8:00 AM EDT Imaging Radiology [facility] 1st Floor, [place] [address] [place] [address] Scheduled Procedures Name Priority Associated Diagnoses Date/Ti me COLONOSCOPY FLEXIBLE PROXIMAL DIAGNOSTIC Recall History of colon polyps Health Maintenance Due Date Last Done Comments Zoster Vaccines (1 of 2) 2006 Depression Screening 07/19/2021 07/19/2020 Pneumococcal Vaccine: 65+ Years (2 - PCV) 11/04/2022 11/04/2021 COVID-19 Vaccine (4 - 2022-24 season) 2023 09/24/2021, 11/18/2020, 10/23/2020 Influenza Vaccine (FLU shot) (#1) 2023 09/06/2021, 07/19/2020, 07/18/2019, Additional history exists COLONOSCOPY-EVERY 5 YRS AGES 18-100 07/29/2023 07/29/2018, 07/29/2018, 01/30/2007 GFR 10/28/2023 04/27/2023, 02/15, 11/07/2022, Additional history exists Albumin/Creatinine Ratio 11/07/2023 11/07/2022 CKD PHOS USE SMARTSET 49631 11/07/2023 02/2 09/2022, 07/23/2019, 03/25/2014 Mammogram 01/23/2024 01/22/2023, 04/2023, 01/03/2022, Additional history exists TSH 04/27/2024 04/27/2023, 02/15, 11/07/2022, Additional history exists CKD HGB USE SMARTSET 24936 04/30/202404/30, 04/30/2023, 11/07/2022, Additional history exists Diabetes Screening 04/27/2026 04/27/2023, 0 03/02/2023, 11/07/2022, Additional history exists Lipid Panel 11/07/2027 11/07/2022, 02/15, 09/27/2020, Additional history exists DXA Scan 12/06/2029 12/06/2022, 11/16, 04/16/2013 DTaP,Tdap,and Td Vaccines (3 - Td or Tdap) 11/04/2031 11/04/2021, 04/20/2011, 01/20/2002 Pap Smear Discontinued 08/19/2014, 11/2013, 04/03/2013, Additional history exists GARDASIL-HPV IMMUNIZATION SERIES Aged Out No longer [...] and were consensually agreed upon. Care Teams Pay Clerk Relationship Specialty Start Date End Date Campos Lange MD [address] [facility] [address] PCP - General Family Medicine 10/07/15 documented as of this encounter
--- OUTSIDE RECORDS SUMMARY | 2024-04-11 00:10 | External Medical Summary ---
Author Name Unknown Address Unknown Organization [id number]:[facility] [place] - [address] [facility] [address] Laboratory Report Ordering Provider Test Date Status CANELO ADDISONEDUARDO 11/07/2023 09:21:27 Final Observation Date Value Abnormality Reference (Units ) Status BUN 11/07/2023 09:21:27 17 6-20 (mg/dL) Final Creatinine 11/07/2023 09:21:27 1.1 Above high normal 0.5-1.0 (mg/dL) Final Glomerular filtration rate/1.73 sq M.predicted [Volume Rate/Area] in Serum, Plasma or Blood by Creatinine-based formula (CKD-EPI) 11/07/2023 09:21:27 53 Below low normal >=60 (mL/min) Final eGFR is calculated based on the CKD-EPI 2020 equation SODIUM 11/07/2023 09:21:27 143 135-146 (m mol/L) Final Potassium 11/07/2023 09:21:27 4.1 3.5-5.1 (m mol/L) Final Cl 11/07/2023 09:21:27 102 98-107 (mm ol/L) Final CO2 11/07/2023 09:21:27 29 22-32 (mmo l/L) Final Anion gap 11/07/2023 09:21:27 12 7-15 (mmol /L) Final Glucose 11/07/2023 09:21:27 95 70-120 (mg /dL) Final Albumin 11/07/2023 09:21:27 4.5 3.8-5.0 (g /dL) Final AST (Aspartate aminotransferase) 11/07/2023 09:21:27 55 Above high normal 10-35 (U/L) Final Alk Phos 11/07/2023 09:21:27 129 35-130 (U/ L) Final Bilirubin, Total 11/07/2023 09:21:27 0.7 <=1 .2 (mg/dL) Final Calcium 11/07/2023 09:21:27 9.1 8.4-10.2 ( mg/dL) Final Protein 11/07/2023 09:21:27 6.9 6.0-8.3 (g /dL) Final ALT (Alanine aminotransferase) 11/07/2023 09:21:27 39 Above high normal 10-35 (U/L) Final Performing Location [facility]ORY [facility] [place] - [address] [facility] [address]
--- OUTSIDE RECORDS SUMMARY | 2024-04-11 00:10 | External Medical Summary ---
Author Name Unknown Address Unknown Organization [id number]:[facility] [place] - [address] [address] Laboratory Report Ordering Provider Test Date Status BAO ADDISON 11/07/2023 09:21:27 Final Observation Date Value Abnormality Reference (Units ) Status TSH 11/07/2023 09:21:27 5.54 Above high normal 0. 27-4.20 (uIU/mL) Final Performing Location LABORATORY [facility] - [address] [place] [address]
--- OUTSIDE RECORDS SUMMARY | 2024-04-11 00:10 | External Medical Summary | Summary of Care ---
Author Name Unknown Organization [facility] Address [address] [place] [address] Phone [phone] Care Team Providers Care Acting Section Chief Name Role Phone Campos Lange MD Primary Care Provider +1- [phone] Reason for Visit * Reason Comments Dosage Adjustment Via Phone (anticoag Cl inic) Encounter Details Date Type Department Care Team (Latest Contact Info) Description 10/31/2023 6:15 AM [facility] Anticoagulation Pharmacy Call Center [address] [place] [address] [facility] [address] [place] [address] History of pulmonary embolism* Allergies No known active allergiesdocumented as of this encounter (statuses as of 10/31/2023) Medications Medication Sig Dispensed Refills Start Date [...] Nasal Suspension (Flonase Allergy Relief) Administer 1 [place] into nostril in the morning. 15.8 mL [...] as of this encounter (statuses as of 10/31/2023) Active Problems Problem Noted Date Diagnosed Date [...] as of this encounter (statuses as of 10/31/2023) Resolved Problems Problem Noted Date Diagnosed Date [...] as of this encounter (statuses as of 10/31/2023) Immunizations Name Administration Dates Next Due COVID-19 [...] as of this encounter Progress Notes * Jeff Williamson RPh - 10/31/2023 3:16 PM EST Will retry tomorrow. * Luiza Connolly PHARM Tech - 10/31/2023 3:01 PM EST Contacts Type Contact Phone/Fax 10/31/2023 08:47 AM EST Phone (Outgoing) Taylor Kraft (Self) [phone] (M) No Answer/Busy - VM is full 10/31/2023 10:16 AM EST Phone (Outgoing) Taylor Kraft (Self) [phone] (M) No Answer/Busy - VM is full 10/31/2023 01:02 PM EST Phone (Outgoing) Taylor Kraft (Self) [phone] (M) No Answer/Busy - VM is full 10/31/2023 02:57 PM EST Phone (Outgoing) Taylor Kraft (Self) [phone] (M) No Answer/Busy - vm full Subjective LUIZA CONNOLLY director public policy 10/31/2023, 3:01 PM * Jeff Williamson RPh - 10/30/2023 10:15 PM EST Images from the original note were not included. Coumadin Clinic (region specific) Objective Current Warfarin Dose As of 10/31/2023 Warfarin maintenance plan: 10 mg (10 mg x 1) every Tue, Kaur, Sat; 5 mg (10 mg x 0.5) all other days INR Result As of 10/31/2023 INR goal: 2.0-3.0 INR used for dosin.8 (10/30/2023) Assessment & Plan Warfarin Plan As of 10/31/2023 Full warfarin instructions: 10/31: 10 mg; Otherwise 10 mg every Tue, Kaur, Sat; 5 mg all other days Next INR check: 11/20/2023 Repeat PT/INR in 3 week(s) Weekly dose: not changed Additional Dosing Information: Description Yasmin Mendezo started 03/09/23 Tech to contact patient with dose instructions as noted. Jeff Williamson RPh 10/30/2023, 10:15 PM documented in this encounter Plan of Treatment Upcoming Encounters Date Type Department Care Team (Late st Contact Info) Description 11/01/2023 6:15 AM EST Anticoagulation Pharmacy Call Center [address] [place] [address] [facility] 58 60 [place] [address] 11/07/2023 8:00 AM EST Office Visit [facility] [address] [place] [address] Campos Lange MD [address] [place], [place] [id number] 11/20/2023 11:40 AM EST [facility] 132 [facility] [place] [address] Vidhi Lazo 132 [facility] [place] [address] 11/21/2023 6:15 AM EST Anticoagulation Pharmacy Call Center WB [address]60 [facility] [place] [address] [facility], [facility] 58 60 [facility] [place] [address] 11/28/2023 7:00 AM EDT Office Visit Family Practice [facility] [place] [address] Alicia Meyers CRNP [address] [place] [address] 11/28/2023 8:15 AM EDT Office Visit Orthopaedics [facility] 132 [facility] [place] [address] Jurgen Hare, [address] [place] [address] 01/24/2024 8:00 AM EDT Imaging Radiology [facility] 132 [facility] [place] [address] Scheduled Procedures Name Priority Associated Diagnoses Date/Ti me COLONOSCOPY FLEXIBLE PROXIMAL DIAGNOSTIC Recall History of colon polyps Health Maintenance Due Date Last Done Comments Zoster Vaccines (1 of 2) 2006 Depression Screening 07/19/2021 07/19/2020 Pneumococcal Vaccine: 65+ Years (2 - PCV) 11/04/2022 11/04/2021 COVID-19 Vaccine ( - 2022-24 season) 2023 09/24/2021, 11/18/2020, 10/23/2020 Influenza Vaccine (FLU shot) (#1) 2023 09/06/2021, 07/19/2020, 07/18/2019, Additional history exists COLONOSCOPY-EVERY 5 YRS AGES 18-100 07/29/2023 07/29/2018, 07/29/2018, 01/30/2007 GFR 10/28/2023 04/27/2023, 02/15, 11/07/2022, Additional history exists Albumin/Creatinine Ratio 11/07/2023 11/07/2022 CKD PHOS USE SMARTSET 22831 11/07/2023 0209/2022, 07/23/2019, 03/25/2014 Mammogram 01/23/2024 01/22/2023, 050 04/2023, 01/03/2022, Additional history exists TSH 04/27/2024 04/27/2023, 02/15, 11/07/2022, Additional history exists CKD HGB USE SMARTSET 65313 04/30/202404/30, 04/30/2023, 11/07/2022, Additional history exists Diabetes Screening 04/27/2026 04/27/2023, 0 03/02/2023, 11/07/2022, Additional history exists Lipid Panel 11/07/2027 11/07/2022, 02/15, 09/27/2020, Additional history exists DXA Scan 12/06/2029 12/06/2022, 11/16, 04/16/2013 DTaP,Tdap,and Td Vaccines (3 - Td or Tdap) 11/04/2031 11/04/2021, 04/20/2011, 01/20/2002 Pap Smear Discontinued 08/19/2014, 1211/2013, 04/03/2013, Additional history exists GARDASIL-HPV IMMUNIZATION SERIES [...] and were consensually agreed upon. Care Teams Acting Section Chief Relationship Specialty Start Date End Date Campos Lange MD [address] [place] [address] PCP - General Family Medicine 10/07/15 documented as of this encounter
--- OUTSIDE RECORDS SUMMARY | 2024-04-11 00:10 | External Medical Summary | Summary of Care ---
Author Name Unknown Organization [facility] Address [address] [place] [address] Phone [phone] Care Team Providers Care Recreation Superintendent Name Role Phone Campos Lange MD Primary Care Provider +1- [phone] Encounter Details Date Type Department Care Team (Late st Contact Info) Description 10/30/2023 Orders Only Pharmacy Call Center [address] [place] [address] [facility] [address] [facility] [address] History of pulmonary embolism* Allergies No known [...] Nasal Suspension (Flonase Allergy Relief) Administer 1 [place] into nostril in the morning. 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/2010 07/18/2019 [facility] current use of ant icoagulant therapy 04/05/2010 [...] Care Team (Late st Contact Info) Description 10/31/2023 6:15 AM EST Anticoagulation Pharmacy Call Center [address] [facility] [place] [address] [facility] 58 60 [facility] [place] [address] 11/07/2023 8:00 AM EST Office Visit [facility] [address] [place] [address] Campos Lange MD [address] [place] [address] 11/28/2023 7:00 AM EDT Office Visit Family Practice [facility] [address] [facility] [place] [address] Alicia Meyers CRNP [address] [place] [address] 11/28/2023 8:15 AM EDT Office Visit Orthopaedics [facility] [address] [place] [address] Jurgen Hare, [address] [place] [address] 01/24/2024 8:00 AM EDT Imaging Radiology [address] 132 [facility] [place] [address] Pending Results Name Type Priority Associated Diagnoses Date /Time PT INR Lab Routine History of pulmonary embolism 10/30/2023 11:55 AM EST Scheduled Orders Name Type Priority Associated Diagnoses Orde r Schedule PT INR Lab Routine History of pulmonary embolism Other, Please specify in Comments field for 26 Occurrences starting 10/30/2023 until 10/30/2024 Scheduled Procedures Name Priority Associated Diagnoses Date/Ti me COLONOSCOPY FLEXIBLE PROXIMAL DIAGNOSTIC Recall History of colon polyps Health Maintenance Due Date Last Done Comments Zoster Vaccines (1 of 2) 2006 Depression Screening 07/19/2021 07/19/2020 Pneumococcal Vaccine: 65+ Years (2 - PCV) 11/04/2022 11/04/2021 COVID-19 Vaccine (4 - 2022- season) 2023 09/24/2021, 11/18/2020, 10/23/2020 Influenza Vaccine (FLU shot) (#1) 2023 09/06/2021, 07/19/2020, 07/18/2019, Additional history exists COLONOSCOPY-EVERY 5 YRS AGES 18-100 07/29/2023 07/29/2018, 07/29/2018, 01/30/2007 GFR 10/28/2023 04/27/2023, 02/15, 11/07/2022, Additional history exists Albumin/Creatinine Ratio 11/07/2023 11/07/2022 CKD PHOS USE SMARTSET 87724 11/07/2023 02/2 09/2022, 07/23/2019, 03/25/2014 Mammogram 01/23/2024 01/22/2023, 05/0 04/2023, 01/03/2022, Additional history exists TSH 04/27/2024 04/27/2023, 02/15, 11/07/2022, Additional history exists CKD HGB USE SMARTSET 12997 04/30/202404/30, 04/30/2023, 11/07/2022, Additional history exists Diabetes [...] and were consensually agreed upon. Care Teams Recreation Superintendent Relationship Specialty Start Date End Date Campos Lange MD [address] [place] [address] PCP - General Family Medicine 10/07/15 documented as of this encounter
--- OUTSIDE RECORDS SUMMARY | 2024-04-11 00:10 | External Medical Summary | Summary of Care ---
Author Name Unknown Organization [facility] Address [address] [place] [address] Phone [phone] Care Team Providers Care Honing Machine Try Out Setter Name Role Phone Campos Lange MD Primary Care Provider +1- [phone] Reason for Visit * Reason Comments Dosage Adjustment Via Phone (anticoag Cl inic) Encounter Details Date Type Department Care Team (Latest Contact Info) Description 11/01/2023 6:15 AM [facility] Anticoagulation Pharmacy Call Center [address] [place] [address] [facility] [address] [place] [address] History of pulmonary embolism* Allergies No known active allergiesdocumented as of this encounter (statuses as of 11/01/2023) Medications Medication Sig Dispensed Refills Start Date [...] Nasal Suspension (Flonase Allergy Relief) Administer 1 [place] into nostril in the morning. 15.8 [...] as of this encounter (statuses as of 11/01/2023) Active Problems Problem Noted Date Diagnosed Date [...] as of this encounter (statuses as of 11/01/2023) Resolved Problems Problem Noted Date Diagnosed Date [...] as of this encounter (statuses as of 11/01/2023) Immunizations Name Administration Dates Next Due COVID-19 [...] as of this encounter Progress Notes * Elin Hill PHARM Tech - 11/01/2023 1:54 PM EST Contacts Type Contact Phone/Fax 11/01/2023 01:52 PM EST Phone (Outgoing) Taylor Kraft (Self) [phone] (M) Left Message Subjective Advised patient to contact Anticoagulation Clinic if any unusual bruising or bleeding, recent illness, changes in medication, or questions/concerns. PT/INR results, Coumadin dose instructions, and next PT/INR date communicated as noted by Pharmacist: Yes ALLYSON JUDGE 11/01/2023, 1:54 PM * Ivania Martino [facility] - 11/01/2023 10:31 AM EST Images from the original note were not included. Unable to reach previously. Please call again today. Coumadin Clinic (region specific) Objective Current Warfarin Dose As of 11/01/2023 Warfarin maintenance plan: 10 mg (10 mg x 1) every Tue, Kaur, Sat; 5 mg (10 mg x 0.5) all other days INR Result As of 11/01/2023 INR goal: 2.0-3.0 INR used for dosin.8 (10/30/2023) Assessment & Plan Warfarin Plan As of 11/01/2023 Full warfarin instructions: 11/01: 15 mg; Otherwise 10 mg every Tue, Kaur, Sat; 5 mg all other days Next INR check: 11/20/2023 Repeat PT/INR in 3 week(s) Weekly dose: not changed Additional Dosing Information: Description Yasmin Andrews started 03/09/23 Tech to contact patient with dose instructions as noted. Ivania Martino RPh 11/01/2023, 10:33 AM documented in this encounter Plan of Treatment Upcoming Encounters Date Type Department Care Team (Late st Contact Info) Description 11/07/2023 8:00 AM EST Office Visit [facility] [address] [place] [address] Campos Lange MD [address] [place] [address] 11/20/2023 11:40 AM EST Laboratory Laboratory, [facility] [place] [address] LazoVidhi garcia [facility] [place] [address] 11/21/2023 6:15 AM EST Anticoagulation Pharmacy Call Center WB [address]60 [facility] [place] [address] [facility] 58 60 [facility] [place] [address] 11/28/2023 7:00 AM EDT Office Visit [facility] [place] [address] Alicia Meyers CRNP 132 [facility] [place] [address] 11/28/2023 8:15 AM EDT Office Visit Orthopaedics [facility] [address] [place] [address] Jurgen Hare S, DO [address] [place] [address] 01/24/2024 8:00 AM EDT Imaging Radiology [address] [place] [address] Scheduled Procedures Name Priority Associated Diagnoses Date/Ti [...] Ratio 11/07/2023 11/07/2022 CKD PHOS USE SMARTSET 23705 11/07/2023 02/2 09/2022, 07/23/2019, 03/25/2014 Mammogram 01/23/2024 01/22/2023, 05/0 04/2023, 01/03/2022, Additional history exists TSH 04/27/2024 04/27/2023, 02/15, 11/07/2022, Additional history exists CKD HGB USE SMARTSET 47530 04/30/202404/30, 04/30/2023, 11/07/2022, Additional history exists Diabetes [...] and were consensually agreed upon. Care Teams Honing Machine Try Out Setter Relationship Specialty Start Date End Date Campos Lange MD [address] [place] [facility] [place] [address] PCP - General Family Medicine 10/07/15 documented as of this encounter
--- OUTSIDE RECORDS SUMMARY | 2024-04-11 00:10 | External Medical Summary | Summary of Care ---
Author Name Unknown Organization [facility] Address [address] [place] [address] Phone [phone] Care Team Providers Care Four Corner Former Machine Operator Name Role Phone Campos Lange MD Primary Care Provider +1- [phone] Reason for Visit * Reason Comments Outpatient Testing Encounter Details Date Type Department Care Team (Late st Contact Info) Description 11/07/2023 9:30 AM EST Laboratory Laboratory, [place] [address] [place] [address] [place], Laboratory [address] [place] [address] HTN, goal below 140/90; Hypothyroidism, unspecified type; Stage 3a chronic kidney disease (HCC) Allergies No known active allergiesdocumented as of this encounter (statuses as of 11/07/2023) Medications Medication Sig Dispensed Refills Start Date [...] Nasal Suspension (Flonase Allergy Relief) Administer 1 [place] into nostril in the morning. 15.8 mL [...] as of this encounter (statuses as of 11/07/2023) Active Problems Problem Noted Date Diagnosed Date [...] as of this encounter (statuses as of 11/07/2023) Resolved Problems Problem Noted Date Diagnosed Date [...] CUFF SYNDROME, RIGHT SHOULDER 04/05/2010 07/18/2019 terminal carman current use of ant icoagulant therapy 04/05/2010 [...] as of this encounter (statuses as of 11/07/2023) Immunizations Name Administration Dates Next Due COVID-19 mRNA, LNP-s, No Pre serve, 2-Dose Series (Moderna) 11/18/2020,10/23/2020 COVID-19, mRNA, LNP-s, PF, B ooster, 100mcg/0.5mg (Moderna) 09/24/2021 Diptheria/Tetanus Adult (TD) 01/20/2002 Pneumococcal Conjugate Vacci ne, 20-valent ([id number]) 11/07/2023 Pneumococcal Polysaccharide PPV23 (Pneumovax) 11/04/2021 Seasonal [...] Description 11/20/2023 11:40 AM EST Laboratory Laboratory, [facility] [address] [place] [address] LazoVidhi garcia [facility] [address] [place] [address] 11/21/2023 6:15 AM EST Anticoagulation Pharmacy Call Center WB [address] [facility] [place] [address] [facility] 58 60 [facility] [place] [address] 11/28/2023 7:00 AM EDT Office Visit Family Practice [facility] [address] [address] Alicia Meyers CRNP [address] [place] [address] 11/28/2023 8:15 AM EDT Office Visit Orthopaedics [facility] [address] [place] [address] Jurgen Hare, [address] [place] [address] 01/24/2024 8:00 AM EDT Imaging Radiology [address] [place] [address] 11/10/2024 8:20 AM EST Office Visit [facility] [address] [place] [address] Campos Lange MD [address] [place] [address] Pending Results Name Type Priority Associated Diagnoses Date /Time COMPREHENSIVE METABOLIC PANEL Lab Routine HTN, goal below 140/90 11/07/2023 9:21 AM EST TSH WITH FREE T4 IF INDICATED Lab Routine Hypothyroidism, unspecified type 11/07/2023 9:21 AM EST ALBUMIN / CREATININE RATIO, URINE Lab Routine Stage 3a chronic kidney disease (HCC) HTN, goal below 140/90 11/07/2023 9:25 AM EST Scheduled Procedures Name Priority Associated Diagnoses [...] Ratio 11/07/2023 11/07/2022 CKD PHOS USE SMARTSET 05891 11/07/202310/19, 07/23/2019, 03/25/2014 Mammogram 01/23/2024 01/22/2023, 04/2023, 01/03/2022, Additional history exists TSH 04/27/2024 04/27/2023, 02/15, 11/07/2022, Additional history exists CKD HGB USE SMARTSET 59818 04/30/202404/30, 04/30/2023, 11/07/2022, Additional history exists Diabetes [...] encounter Visit Diagnoses Diagnosis HTN, goal below 140/90 Unspecified essential hypertension Hypothyroidism, unspecified type Stage 3a chronic kidney disease (HCC) documented in [...] and were consensually agreed upon. Care Teams Four Corner Former Machine Operator Relationship Specialty Start Date End Date Campos Lange MD [address] [place] [id number] PCP - General Family Medicine 10/07/15 documented as of this encounter
--- OUTSIDE RECORDS SUMMARY | 2024-04-11 00:10 | External Medical Summary | Summary of Care ---
Author Name Unknown Organization [facility] Address [address] [place] [address] Phone [phone] Care Team Providers Care Mechanical Commissioning Engineer Name Role Phone Campos Lange MD Primary Care Provider +1- [phone] Encounter Details Date Type Department Care Team [...] Nasal Suspension (Flonase Allergy Relief) Administer 1 [place] into nostril in the morning. 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 current use of ant icoagulant therapy [...] 10/30/2023 11:00 AM EST Office Visit Cardiology, [facility] 132 [facility] [place] [address] Anabel Covington CRNP [address] [place] [address] [place] [phone] 10/30/2023 11:40 AM EST Laboratory Laboratory, [facility] 132 [facility] [place] [phone] [facility] 132 [facility] [place] [address] 10/31/2023 6:15 AM EST [facility] [address] [facility] 58 60 [facility] [address] 11/07/2023 8:00 AM EST Office Visit [place] [address] [place] [phone] Campos Lange MD [address] [place] [address] 11/28/2023 7:00 AM EDT Office Visit Family [facility] 132 [facility] [place] [address] Alicia Meyers CRNP 132 [facility] [place] [address] 11/28/2023 8:15 AM EDT Office Visit Orthopaedics [facility] [address] [place] [address] Jurgen Hare, [address] [place] [address] 01/24/2024 8:00 AM EDT Imaging Radiology [facility] 1st Floor, [place] [address] [place] [address] Scheduled Procedures Name Priority Associated Diagnoses Date/Ti [...] Ratio 11/07/2023 11/07/2022 CKD PHOS USE SMARTSET 34502 11/07/2023 02/2 09/2022, 07/23/2019, 03/25/2014 Mammogram 01/23/2024 01/22/2023, 04/2023, 01/03/2022, Additional history exists TSH 04/27/2024 04/27/2023, 02/15, 11/07/2022, Additional history exists CKD HGB USE SMARTSET 35061 04/30/202404/30, 04/30/2023, 11/07/2022, Additional history exists Diabetes [...] and were consensually agreed upon. Care Teams Mechanical Commissioning Engineer Relationship Specialty Start Date End Date Campos Lange MD [address] [facility] [address] PCP - General Family Medicine 10/07/15 documented as of this encounter
--- OUTSIDE RECORDS SUMMARY | 2024-04-11 00:10 | External Medical Summary | Summary of Care ---
Author Name Unknown Organization [facility] Address [address] [place] [address] Phone [phone] Care Team Providers Care Metalsmith Helper Name Role Phone Campos Lange MD Primary Care Provider +1- [phone] Encounter Details Date Type Department Care Team [...] Nasal Suspension (Flonase Allergy Relief) Administer 1 [place] into nostril in the morning. 15.8 mL [...] Tablet (Levoxyl)Indications :Malignant neoplasm of thyroid gland ([facility]) TAKE 1 TABLET BY MOUTH IN THE [...] CUFF SYNDROME, RIGHT SHOULDER 04/05/2010 07/18/2019 terminal clerk current use of ant icoagulant therapy 04/05/2010 [...] 10/30/2023 11:00 AM EST Office Visit Cardiology, [facility] 132 [facility] [place] [address] Anabel Covington CRNP [address] [place] [address] [place] [phone] 10/30/2023 11:40 AM EST Laboratory Laboratory, [facility] 132 [facility] [place] [address] [facility] 132 [facility] [place] [address] 10/31/2023 6:15 AM EST [facility] Call [facility] [address] [facility] 58 60 [facility] [address] 11/07/2023 8:00 AM EST Office Visit [place] [address] [place] [facility] [place] [phone] Campos Lange MD [address] [place] [address] 11/28/2023 7:00 AM EDT Office Visit Family [facility] 132 [facility] [place] [address] Alicia Meyers CRNP 132 [facility] [place] [address] 11/28/2023 8:15 AM EDT Office Visit Orthopaedics [facility] [address] [place] [address] Jurgen Hare, [address] [place] [address] 01/24/2024 8:00 AM EDT Imaging Radiology [facility] 1st Floor, [place] [address] [place] [address] Scheduled Procedures Name Priority Associated Diagnoses Date/Ti [...] Ratio 11/07/2023 11/07/2022 CKD PHOS USE SMARTSET 10074 11/07/2023 02/2 09/2022, 07/23/2019, 03/25/2014 Mammogram 01/23/2024 01/22/2023, 04/2023, 01/03/2022, Additional history exists TSH 04/27/2024 04/27/2023, 02/15, 11/07/2022, Additional history exists CKD HGB USE SMARTSET 01814 04/30/202404/30, 04/30/2023, 11/07/2022, Additional history exists Diabetes [...] and were consensually agreed upon. Care Teams Metalsmith Helper Relationship Specialty Start Date End Date Campos Lange MD [address] [facility] [address] PCP - General Family Medicine 10/07/15 documented as of this encounter
--- OUTSIDE RECORDS SUMMARY | 2024-04-11 00:10 | External Medical Summary | Summary of Care ---
Author Name Unknown Organization [facility] Address [address] [place] [address] Phone [phone] Care Team Providers Care Package Sealer Name Role Phone Campos Lange MD Primary Care Provider +1- [phone] Reason for Visit * Reason Comments Outpatient Testing Encounter Details Date Type Department Care Team (Late st Contact Info) Description 10/30/2023 11:40 AM EST Laboratory Laboratory, [facility] [address] [place] [phone] [facility] [address] [place] [address] History of pulmonary embolism Allergies No known [...] Nasal Suspension (Flonase Allergy Relief) Administer 1 [place] into nostril in the morning. 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 04/05/2010 [...] AM EST Anticoagulation Pharmacy Call Center [address] [facility] [place] [address] [facility] [address] [facility] [place] [address] 11/07/2023 8:00 AM EST Office Visit [facility] [address] [place] [phone] Campos Lange MD [address] [place] [address] 11/28/2023 7:00 AM EDT Office Visit Family Practice [facility] [address] [place] [address] Alicia Meyers CRNP [address] [place] [address] 11/28/2023 8:15 AM EDT Office Visit Orthopaedics [facility] [address] [place] [address] Jurgen Hare, [address] [place] [address] 01/24/2024 8:00 AM EDT Imaging Radiology [address], [place] [address] [place] Pending Results Name Type Priority Associated Diagnoses Date /Time PT INR Lab Routine History of pulmonary embolism 10/30/2023 11:55 AM EST Scheduled Procedures Name Priority Associated [...] Ratio 11/07/2023 11/07/2022 CKD PHOS USE SMARTSET 81292 11/07/2023 02/2 09/2022, 07/23/2019, 03/25/2014 Mammogram 01/23/2024 01/22/2023, 05/0 04/2023, 01/03/2022, Additional history exists TSH 04/27/2024 04/27/2023, 02/15, 11/07/2022, Additional history exists CKD HGB USE SMARTSET 20127 04/30/202404/30, 04/30/2023, 11/07/2022, Additional history exists Diabetes [...] and were consensually agreed upon. Care Teams Package Sealer Relationship Specialty Start Date End Date Campos Lange MD [address] [place] [address] PCP - General Family Medicine 10/07/15 documented as of this encounter
--- OUTSIDE RECORDS SUMMARY | 2024-04-11 00:10 | External Medical Summary ---
Author Name Unknown Address Unknown Organization K01:LABORATORY [facility] - [address] [place] [address] Laboratory Report Ordering Provider Test Date Status CANELO ADDISONEDUARDO 11/13/2023 14:16:55 Final Normal: <30 mg/g creatinine< br/>High: 30-300 mg/g creatinine
Very High: >300 mg/g creatinine
Nephrotic: >2200 mg/g creatinine Observation Date Value Abnormality Reference (Units ) Status Albumin, Urine 11/13/2023 14:16:55 <1.20 (mg/dL) Final Creatinine, Urine 11/13/2023 14:16:55 62 (mg/dL) Final Albumin/Creatinine [Mass Ratio] in Urine 11/13/2023 14:16:55 <19 <30 (mg/g Creat) Final Performing Location LABORATORY [facility] - [address] [place] [address]
--- OUTSIDE RECORDS SUMMARY | 2024-04-11 00:10 | External Medical Summary ---
Author Name Unknown Address Unknown Organization [id number]:[facility] [place] [address] [place] [address] Laboratory Report Ordering Provider Test Date Status BAO ADDISON 11/07/2023 09:21:27 Final Observation Date Value Abnormality Reference (Units ) Status T4, Free 11/07/2023 09:21:27 1.7 0.9-1.7 (n g/dL) Final Performing Location LABORATORY [facility] - [address] [place] [address]
--- OUTSIDE RECORDS SUMMARY | 2024-04-11 00:10 | External Medical Summary | Summary of Care ---
Author Name Unknown Organization [facility] Address [address] [place] [address] Phone [phone] Care Team Providers Care Roof Shingler Name Role Phone Campos Lange MD Primary Care Provider +1- [phone] Reason for Visit * Reason Comments Outpatient Testing Encounter Details Date Type Department Care Team (Late st Contact Info) Description 11/07/2023 9:30 AM EST Laboratory Laboratory, [facility] [address] [place] [address] [facility] [address] [place] [address] HTN, goal below 140/90; Hypothyroidism, [...] Nasal Suspension (Flonase Allergy Relief) Administer 1 [place] into nostril in the morning. 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 04/05/2010 [...] (TD) 01/20/2002 Pneumococcal Conjugate Vacci ne, 20-valent ([place]uyarga02) 11/07/2023 Pneumococcal Polysaccharide PPV23 (Pneumovax) 11/04/2021 Seasonal [...] Description 11/20/2023 11:40 AM EST Laboratory Laboratory, [facility] [address] [place] [address] [facility]azo[facility]idhi garcia [facility] [address] [place] [address] 11/21/2023 6:15 AM EST Anticoagulation Pharmacy Call Center [place] 58[address]60 [facility] [place] [address] [facility] 58 60 [facility] [place] [address] 11/28/2023 7:00 AM EDT Office Visit Family Practice [facility] [address] [place] [address] Alicia Meyers CRNP [address] [place] [address] 11/28/2023 8:15 AM EDT Office Visit Orthopaedics [facility] [address] [place] [address] Jurgen Hare, DO [address] [place] [address] 01/24/2024 8:00 AM EDT Imaging Radiology [address] [place] [address] 11/10/2024 8:20 AM EST Office Visit [facility] [address] [place] [phone] Campos Lange MD [address] [place] [address] Pending Results Name Type Priority Associated Diagnoses Date /Time COMPREHENSIVE METABOLIC PANEL Lab Routine HTN, goal below 140/90 11/07/2023 9:21 AM EST TSH WITH FREE T4 IF INDICATED Lab Routine Hypothyroidism, unspecified type 11/07/2023 9:21 AM EST Scheduled Procedures Name Priority Associated [...] Ratio 11/07/2023 11/07/2022 CKD PHOS USE SMARTSET 20282 11/07/2023 0209/2022, 07/23/2019, 03/25/2014 Mammogram 01/23/2024 01/22/2023, 04/2023, 01/03/2022, Additional history exists TSH 04/27/2024 04/27/2023, 02/15, 11/07/2022, Additional history exists CKD HGB USE SMARTSET 02903 04/30/202404/30, 04/30/2023, 11/07/2022, Additional history exists Diabetes [...] and were consensually agreed upon. Care Teams Roof Shingler Relationship Specialty Start Date End Date Campos Lange MD [address] [place] [address] PCP - General Family Medicine 10/07/15 documented as of this encounter
--- OUTSIDE RECORDS SUMMARY | 2024-04-11 00:11 | External Medical Summary | Summary of Care ---
Author Name Unknown Organization [facility] Address [address] [place] [address] Phone [phone] Care Team Providers Care Flare Breaker Name Role Phone Campos Lange MD Primary Care Provider +1- [phone] Encounter Details Date Type Department Care Team [...] Nasal Suspension (Flonase Allergy Relief) Administer 1 [place] into nostril in the morning. 15.8 mL [...] Tablet (Levoxyl)Indications :Malignant neoplasm of thyroid gland (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 04/05/2010 [...] 10/30/2023 11:00 AM EST Office Visit Cardiology, [facility] 132 [facility] [place] [address] Anabel Covington CRNP [address] [place] [address] [place] [phone] 10/30/2023 11:40 AM EST Laboratory Laboratory, [facility] 132 [facility] [place] [phone] [facility] 132 [facility] [place] [address] 10/31/2023 6:15 AM EST [facility] Call Center 58-60 [facility] [address] [facility] 58 60 [facility] [address] 11/07/2023 8:00 AM EST Office Visit [place] [address] [place] [phone] Campos Lange MD [address] [place] [address] 11/28/2023 7:00 AM EDT Office Visit Family [facility] 132 [facility] [place] [address] Alicia Meyers CRNP 132 [facility] [place] [address] 11/28/2023 8:15 AM EDT Office Visit Orthopaedics [facility] [address] [place] [address] Jurgen Hare, [address] [place] [address] 01/24/2024 8:00 AM EDT Imaging Radiology [facility] 1st Floor, [place] [address] [place] [address] Scheduled Procedures Name Priority Associated Diagnoses Date/Ti [...] Ratio 11/07/2023 11/07/2022 CKD PHOS USE SMARTSET 55143 11/07/2023 02/2 09/2022, 07/23/2019, 03/25/2014 Mammogram 01/23/2024 01/22/2023, 04/2023, 01/03/2022, Additional history exists TSH 04/27/2024 04/27/2023, 02/15, 11/07/2022, Additional history exists CKD HGB USE SMARTSET 15236 04/30/202404/30, 04/30/2023, 11/07/2022, Additional history exists Diabetes [...] and were consensually agreed upon. Care Teams Flare Breaker Relationship Specialty Start Date End Date Campos Lange MD [address] [facility] [address] PCP - General Family Medicine 10/07/15 documented as of this encounter
--- OUTSIDE RECORDS SUMMARY | 2024-04-11 00:11 | External Medical Summary | Summary of Care ---
Author Name Unknown Organization [facility] Address [address] [place] [address] Phone [phone] Care Team Providers Care Residential Care Officer Name Role Phone Campos Lange MD Primary Care Provider +1- [phone] Reason for Visit * Reason Comments Pulmonary Function Test PFT with broncho dilator Encounter Details Date Type Department Care Team (Latest Contact Info) Description 10/16/2023 8:00 AM EST PulmDiagnostic Pulmonary Function Lab, [facility] 132 [facility] [place] [address] [place] 132 [facility] [place] [address] Chronic cough*; Upper airway cough syndrome Allergies No known active allergiesdocumented as of this encounter (statuses as of 10/16/2023) Medications Medication Sig Dispensed Refills Start Date [...] Nasal Suspension (Flonase Allergy Relief) Administer 1 [place] into nostril in the morning. 15.8 mL [...] as of this encounter (statuses as of 10/16/2023) Active Problems Problem Noted Date Diagnosed Date [...] as of this encounter (statuses as of 10/16/2023) Resolved Problems Problem Noted Date Diagnosed Date [...] ROTATOR CUFF SYNDROME, RIGHT SHOULDER 04/05/2010 07/18/2019 long-term current use of ant icoagulant therapy 04/05/2010 [...] as of this encounter (statuses as of 10/16/2023) Immunizations Name Administration Dates Next Due COVID-19 [...] Sign Reading Time Taken Comments Blood Pressure - - Pulse - - Temperature - - Respiratory Rate - - Oxygen Saturation - - Inhaled Oxygen Concentration - - Weight 122.5 kg (270 lb 1 oz) 10/16/2023 7:54 AM EST Height 164.8 cm (5' 4.88") 10/16/2023 7:54 AM ES T Body Mass Index 45.1 10/16/2023 7:54 AM EST documented in this [...] No 12/03/2014 documented as of this encounter Nursing Notes * Sofia Samayoa, SOPHY - 10/16/2023 8:16 AM EST Taylor Kraft was identified by name, Date of : (1955), and . Vitals were obtained for testing. Body mass index is 45.1 kg/m. Pt does not have a smoking history. 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 Pt is on AMIODARONE. Spirometry, DLCO, RAW, and TGV performed. A slow volume nebulizer treatment of 0.5ml of albuterol in 3 ml of NSS was given. The proper method of use, as well as anticipated side effects, of this svn are discussed and demonstrated to the patient. Patient demonstrates adequate delivery. Administrations This Visit Albuterol Sulfate (Proventil) (5 MG/ML) 0.5% *conc* inhalation solution 2.5 mg Admin Date 10/16/2023 Action Given Dose 2.5 mg Route Nebulizer Documented By Sofia Samayoa RRT documented in this encounter Plan of Treatment Upcoming Encounters Date Type Department Care Team (Late st Contact Info) Description 10/25/2023 3:30 PM EST Laboratory Laboratory, [address] [place] [address] [facility] 132 [facility] [place] [address] 10/26/2023 6:15 AM EST Anticoagulation Pharmacy Call Center 58[address] [facility] [place] [address] [facility] 58 60 [facility] [place] [address] 10/30/2023 11:00 AM EST Office Visit Cardiology, [facility] 132 [facility] [place] [address] Anabel Covington CRNP [address] [place] [address] [place] [phone] 11/07/2023 8:00 AM EST Office Visit [facility] [address] [place] [address] Campos Lange MD [address] [place] [address] 11/28/2023 7:00 AM EDT Office Visit Family Practice [facility] 132 [facility] [place] [address] Alicia Meyers CRNP 132 [facility] [place] [address] 01/24/2024 8:00 AM EDT Imaging Radiology [address], [address] [place] [address] Pending Results Name Type Priority Associated Diagnoses Date /Time LUNG VOLUMES (PLETHYSMOGRAPHY) Procedures Routine Chronic cough Upper airway cough syndrome 10/16/2023 7:55 AM EST SPIROMETRY B/A BRONCHODILATOR Procedures Routine Chronic cough Upper airway cough syndrome 10/16/2023 7:55 AM EST Scheduled Procedures Name Priority Associated [...] Ratio 11/07/2023 11/07/2022 CKD PHOS USE SMARTSET 43176 11/07/202310/19, 07/23/2019, 03/25/2014 Mammogram 01/23/2024 01/22/2023, 050 04/2023, 01/03/2022, Additional history exists TSH 04/27/2024 04/27/2023, 02/15, 11/07/2022, Additional history exists CKD HGB USE SMARTSET 18561 04/30/202404/30, 04/30/2023, 11/07/2022, Additional history exists Diabetes [...] Not on filedocumented as of this encounter Procedures Procedure Name Priority Date/Time Associated Diagnosis Comments LUNG VOLUMES (PLETHYSMOGRAPHY) Routine 10/16/2023 7:55 AM EST Chronic cough Upper airway cough syndrome SPIROMETRY B/A BRONCHODILATOR Routine 10/16/2023 7:55 AM EST Chronic cough Upper airway cough syndrome documented in this encounter Visit Diagnoses Diagnosis Chronic cough- Primary Cough Upper airway cough syndrome Cough documented in this encounter Administered Medications Active Administered Medications - up to 3 most recent administrations Medication Order MAR Action Action Date Dose Rate Site Albuterol Sulfate (Proventil) (5 MG/ML) 0.5% *conc* inhalation solution 2.5 mg 2.5 mg, Nebulizer, PRN PFT once, Starting on Sun03/23/23 at 1219, Until 03/22/24 at 1218, For 365 days, Only one type of albuterol product should be administered (Nebulizer or Inhaler). Please select and document on the appropriate albuterol product order. *Dilute with 0.9% saline IF needed Given 10/16/2023 7:53 AM EST 2.5 mg Given 03/28/2023 6:35 AM EDT 2.5 mg documented in this encounter Advance Directives Latest [...] and were consensually agreed upon. Care Teams Residential Care Officer Relationship Specialty Start Date End Date Campos Lange MD [address] [place] [address] PCP - General Family Medicine 10/07/15 documented as of this encounter
--- OUTSIDE RECORDS SUMMARY | 2024-04-11 00:11 | External Medical Summary | Summary of Care ---
Author Name Unknown Organization [facility] Address [address] [place] [address] Phone [phone] Care Team Providers Care Steam Press Tender Name Role Phone Campos Lange MD Primary Care Provider [phone]- [phone] Reason for Referral * Evaluate & Treat - Unlimited Visits (Within 30 days (routine)) - Authorized Specialty Diagnoses / Procedures Referred By Daniele kang Referred To Contact Physical Therapy / Physical Medicine And Rehab Diagnoses Primary osteoarthritis of right knee Eneida Pimentel PA-C [address] [place] [address] Referral ID Status Reason Start Date Expiration Date Visits Requested Visits Authorized [id number] Authorized Specialty Services Required 10/17/2023 999 999 Question Answer Referral Priority Within 30 days (routine) Where should this appointment be scheduled? External Reason for Visit * Reason Comments NEW PATIENT Knee Encounter Details Date Type Department Care Team (Latest Contact Info) Description 10/17/2023 11:45 AM EST Office Visit Orthopaedics [facility] [address] [place] [address] Eneida Pimentel PA-C [address] [place] [address] Primary osteoarthritis of right knee*; Knee injury, right, initial encounter Allergies No known active allergiesdocumented as of this encounter (statuses as of 10/17/2023) Medications Medication Sig Dispensed Refills Start Date [...] Nasal Suspension (Flonase Allergy Relief) Administer 1 [place] into nostril in the morning. 15.8 mL [...] as of this encounter (statuses as of 10/17/2023) Active Problems Problem Noted Date Diagnosed Date [...] as of this encounter (statuses as of 10/17/2023) Resolved Problems Problem Noted Date Diagnosed Date [...] ROTATOR CUFF SYNDROME, RIGHT SHOULDER 04/05/2010 07/18/2019 FDC current use of ant icoagulant therapy 04/05/2010 [...] as of this encounter (statuses as of 10/17/2023) Immunizations Name Administration Dates Next Due COVID-19 [...] this encounter Patient Instructions * Patient Instructions* Eneida Pimentel PA-C - 10/17/2023 12:08 PM EST Try over the counter topical Voltaren gel (Diclofenac Sodium) up to 4 times per day documented in this encounter Progress Notes * Eneida Pimentel PA-C - 10/17/2023 1:39 PM EST Taylor Kraft is a 68 year old female who presents for consultation to [facility] for right knee injury/pain. Consult requested by Self. Taylor Kraft is here unaccompanied History: Taylor Kraft reports that right knee pain started yesterday. Patient states she tripped over an uneven sidewalk. Notes pain throughout the right knee. Reports difficulty with ambulation and is requiring use of a cane. She denies any locking or knee giving way. No numbness, tingling, burning, weakness. No previous knee injuries or surgeries Review of systems: All others negative except those noted above in HPI. Review of patient's allergies indicates: No Known Allergies Current Outpatient Medications Medication Sig Dispense Refill VITAMIN D 400 UNIT PO TABS 2 Tab Oral Daily qs 0 Omeprazole 20 MG Oral Capsule Delayed Release (PriLOSEC) TAKE ONE CAPSULE EVERY DAY 1 HOUR BEFORE THE FIRST MEAL OF THE DAY 90 Capsule 3 Fluticasone Propionate 50 MCG/ACT Nasal Suspension (Flonase Allergy Relief) Administer 1 [place] intonostril in the morning. 15.8 mL 3 [...] solution 2.5 mg 2.5 mg Nebulizer PRN Rhed, Alicia Nicci, CERTIFIED MASTER SAFECRACKER Albuterol Sulfate (Proventil) (5 MG/ML) 0.5% *conc* inhalation solution 2.5 mg 2.5 mg Nebulizer PRNRhed, Alicia Nicci, CERTIFIED MASTER SAFECRACKER 2.5 mg at 10/16/23 0753 Past Medical History: Diagnosis Date Depressive disorder, not elsewhere classified HTN, goal below 140/90 Malignant neoplasm of thyroid gland (HCC) 06/25/2009 53 year old female s/p total thyroidectomy Diaz Box DO Jun 25, 2009 Mitral valve regurgitation Obstetrical blood-clot embolism, antepartum 1980 very early , loss Other postablative hypothyroidism 08/18/2009 149 mCi I-131 August 04, 2009 under thyrogen with possible mediastinal lymph node on scan and a large thyroid remnant. Pulmonary embolus (HCC) 04/25 Patient Active Problem List Diagnosis Code Morbidly obese ([facility]) E66.01 History of pulmonary embolism Z86.711 Hypothyroidism, postablative E89.0 Stage 3a chronic kidney disease N18.31 History of thyroid cancer Z85.850 Oropharyngeal dysphagia R13.12 Hilar adenopathy R59.0 PAF (paroxysmal atrial fibrillation) ([facility]) I48.0 Chronic heart failure with preserved ejection fraction ([facility]) I50.32 HTN, goal below 130/80 I10 Upper respiratory tract infection J06.9 Mild persistent asthma with acute exacerbation J45.31 Past Surgical History: Procedure Laterality Date COLONOSCOPY W/ BIOPSY (RECTUM) 01/30/07 path-normal, repeat 2017 COLONOSCOPY, DIAGNOSTIC (RECTUM) 07/29/2018 adenomatous polyp, diverticulosis, repeat 5 yrs/COLONOSCOPY FLEXIBLE PROXIMAL DIAGNOSTIC performed by Anali James MD at ENDOSCOPY [facility] FOLLOWUP THYROID SURGERY Left 12/03/2014 THYROIDECTOMY FOLLOWING PREVIOUS REMOVAL PORTION THYROID performed by Gurmeet Sood MD [place] [facility] [place] labor and del x2 LIGATE/CUT OVIDUCT(S) PARATHYROID AUTOTRANSPLANTATION 06/25/09 PARATHYROID AUTOTRANSPLANTATION performed by DIAZ BOX at [facility] REMOVAL OF NECK LYMPH NODES Left 11/10/2015 lymph node dissection for thyroid cancer REMOVAL OF THYROID FOR TUMOR 06/25/09 THYROIDECTOMY WITH LIMITED NECK DISSECTION performed by DIAZ BOX at [facility] TREATMENT OF INCOMPLETE x6 including tubl preg post tubal lig Social History Socioeconomic History Marital status: Spouse name: Osvaldo Number of children: 2 Years of education: Not on file Highest education level: Not on file Occupational History 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 Estimated body mass index is 45.1 kg/m as calculated from the following: Height as of 10/16/23: 1.648 m (5' 4.88"). Weight as of 10/16/23: 122.5 kg (270 lb 1 oz). General: generally well-nourished and in no acute distress HEENT: normocephalic, atraumatic, sclera anicteric. Psych: mood and affect normal , cooperative Card: Peripheral pulses: normal in affected extremity (s) Resp: equal chest rise, non-tachypneic, non-labored breathing Skin: no rash, normal Neuro: Sensation: normal on affected extremity (s) MSK: Gait/station/stance: antalgic gait without an assistive device on smooth flat indoor surface. Knee Exam, Bilateral Inspection: No obvious deformity, no redness, swelling, warmth, bruising, abrasion. Palpation: tenderness to palpation medial and lateral patellar facet on the right ROM: Flexion/Neutral/Extension: L - 120/0/0, R - 120/0/0 Popliteal Angle (Hamstring Flexibility): 30 Bilateral Strength: R- Strength: Extension - 5/5 Flexion - 5/5 L - Strength: Extension - 5/5 Flexion - 5/5 Special Tests: ACL: Issac - negative Bilateral Ant Drawer - negative Bilateral PCL: Sag - negative Bilateral Post Drawer - negative Bilateral MCL: Medial Opening @ 30: negative Bilateral LCL: Lateral Opening @ 30: negative Bilateral Meniscus Tests: Sima - negative Bilateral Radiology (I have personally reviewed the following films):X-ray of the right knee was reviewed with patient. Those x-rays reveal marginal osteophytes and joint space narrowing most notable in the medial femoral and patella femoral compartment Assessment and Plan: Primary osteoarthritis of right knee (Primary) - PHYSICAL THERAPY REFERRAL OP Knee injury, right, initial encounter - XR KNEE 4 OR MORE VIEWS Advised trial of PT and Voltaren gel. Discussed benefits of regular low impact exercise and weight loss. Recommend follow up 6 -8 weeks. If symptoms persist may consider injections. Follow Up: Return for Follow up with Doroteo Stanley, or [facility] in 6-8 weeks. | For: Follow up with Doroteo Stanley or [facility] in 6-8 weeks Eneida Pimentel PA-C [facility] [address] [address] documented in this encounter Nursing Notes * Amber Baker LPN - 10/17/2023 11:43 AM EST Pt presents for new ortho urgent care visit, injury to R knee. Pt fell last evening, tripped over an uneven sidewalk. Using a cane since, pain is 8-9/10 with walking. documented in this encounter Plan of Treatment Upcoming Encounters Date Type Department Care Team (Late st Contact Info) Description 10/25/2023 3:30 PM EST Laboratory Laboratory, [facility] [address] [place] [phone] Vidhi Lazos [address] [place] [address] 10/26/2023 6:15 AM EST Anticoagulation Pharmacy Call Center [address] [facility] [place] [address] [facility], [facility] [place] 58 60 [facility] [place] [address] 10/30/2023 11:00 AM EST Office Visit Cardiology, [facility] 132 [facility] [place] [address] Anabel Covington CRNP [address] [place], [place] [address] [phone] 11/07/2023 8:00 AM EST Office Visit [facility] [address] [place] [phone] Campos Lange MD [address] [place] [address] 11/28/2023 7:00 AM EDT Office Visit Family Practice [facility] [address] [facility] [place] [address] Alicia Meyers CRNP [address] [place] [address] 11/28/2023 8:15 AM EDT Office Visit Orthopaedics [facility] [address] [place] [address] Jurgen Hare, [address] [place] [address] 01/24/2024 8:00 AM EDT Imaging Radiology [address], [place] 132 [facility] [place] [address] Pending Results Name Type Priority Associated Diagnoses Date /Time XR KNEE 4 OR MORE VIEWS Medical Imaging Routine Knee injury, right, initial encounter 10/17/2023 12:00 PM EST Scheduled Procedures Name Priority Associated Diagnoses Date/Ti me COLONOSCOPY FLEXIBLE PROXIMAL DIAGNOSTIC Recall History of colon polyps Scheduled Referrals Name Type Priority Associated Diagnoses Orde r Schedule PHYSICAL THERAPY REFERRAL OP Referral Within 30 days (routine) Primary osteoarthritis of right knee Ordered: 10/17/2023 Health Maintenance Due Date Last Done Comments [...] Ratio 11/07/2023 11/07/2022 CKD PHOS USE SMARTSET 68527 11/07/2023 02/09/2022, 07/23/2019, 03/25/2014 Mammogram 01/23/2024 01/22/2023, 04/2023, 01/03/2022, Additional history exists TSH 04/27/2024 04/27/2023, 02/15, 11/07/2022, Additional history exists CKD HGB USE SMARTSET 25191 04/30/202404/30, 04/30/2023, 11/07/2022, Additional history exists Diabetes [...] as of this encounter Visit Diagnoses Diagnosis Primary osteoarthritis of right knee- Primary Primary localized osteoarthrosis, lower leg Knee injury, right, initial encounter documented in this encounter Advance Directives Latest [...] and were consensually agreed upon. Care Teams Steam Press Tender Relationship Specialty Start Date End Date Campos Lange MD [address] [place] [address] PCP - General Family Medicine 10/07/15 documented as of this encounter
--- OUTSIDE RECORDS SUMMARY | 2024-04-11 00:11 | External Medical Summary ---
Author Name Unknown Address Unknown Organization [facility] [address] [place] [address] Laboratory Report Ordering Provider Test Date Status MARLENE COVARRUBIAS 10/30/2023 11:55:35 Final Please draw PT/INR every 1-4 weeks or as requested by the [facility]

Warfarin Therapy
INR: 2.0-3.0 conventional anticoagulation
INR: 2.5-3.5 high intensity anticoagulation Observation Date Value Abnormality Reference (Units ) Status PT 10/30/2023 11:55:35 20.7 Above high normal 11 .6-15.2 (seconds) Final INR 10/30/2023 11:55:35 1.8 Above high normal 0. 8-1.2 Final Performing Location [facility] [address] [place] [address]
--- OUTSIDE RECORDS SUMMARY | 2024-04-11 00:11 | External Medical Summary | Summary of Care ---
Author Name Unknown Organization [facility] Address [address] [place] [address] Phone [phone] Care Team Providers Care Aquatic Facility Manager Name Role Phone Campos Lange MD Primary Care Provider +1- [phone] Encounter Details Date Type Department Care Team [...] Nasal Suspension (Flonase Allergy Relief) Administer 1 [place] into nostril in the morning. 15.8 mL [...] Tablet (Levoxyl)Indications :Malignant neoplasm of thyroid gland ([facility]) TAKE 1 TABLET BY MOUTH IN THE [...] CUFF SYNDROME, RIGHT SHOULDER 04/05/2010 07/18/2019 intermediate project manager current use of ant icoagulant therapy [...] 10/30/2023 11:00 AM EST Office Visit Cardiology, [facility] 132 [facility] [place] [address] Anabel Covington CRNP [address] [place] [address] [place] [phone] 10/30/2023 11:40 AM EST Laboratory Laboratory, [facility] 132 [facility] [place] [phone] [facility] 132 [facility] [place] [address] 10/31/2023 6:15 AM EST [facility] [address] [facility] [address] [facility] [address] 11/07/2023 8:00 AM EST Office Visit [place] [address] [place] [phone] Campos Lange MD [address] [place] [address] 11/28/2023 7:00 AM EDT Office Visit [facility] 132 [facility] [place] [address] Alicia Meyers CRNP 132 [facility] [place] [address] 11/28/2023 8:15 AM EDT Office Visit Orthopaedics [facility] [address] [place] [address] Jurgen Hare, [address] [place] [address] 01/24/2024 8:00 AM EDT Imaging Radiology [facility] 1st Floor, [place] [address] [place] [address] Scheduled Procedures Name Priority Associated Diagnoses Date/Ti [...] Ratio 11/07/2023 11/07/2022 CKD PHOS USE SMARTSET 81378 11/07/2023 02/2 09/2022, 07/23/2019, 03/25/2014 Mammogram 01/23/2024 01/22/2023, 04/2023, 01/03/2022, Additional history exists TSH 04/27/2024 04/27/2023, 02/15, 11/07/2022, Additional history exists CKD HGB USE SMARTSET 45014 04/30/202404/30, 04/30/2023, 11/07/2022, Additional history exists Diabetes [...] and were consensually agreed upon. Care Teams Aquatic Facility Manager Relationship Specialty Start Date End Date Campos Lange MD [address] [facility] [address] PCP - General Family Medicine 10/07/15 documented as of this encounter
--- OUTSIDE RECORDS SUMMARY | 2024-04-11 00:11 | External Medical Summary | Summary of Care ---
Author Name Unknown Organization [facility] Address [address] [place] [address] Phone [phone] Care Team Providers Care Bottle Washing Machine Operator Name Role Phone Campos Lange MD Primary Care Provider +1- [phone] Encounter Details Date Type Department Care Team [...] Nasal Suspension (Flonase Allergy Relief) Administer 1 [place] into nostril in the morning. 15.8 mL [...] Tablet (Levoxyl)Indications :Malignant neoplasm of thyroid gland ([facility]) TAKE 1 TABLET BY MOUTH [...] CUFF SYNDROME, RIGHT SHOULDER 04/05/2010 07/18/2019 terminal makeup operator current use of ant icoagulant therapy [...] 10/30/2023 11:00 AM EST Office Visit Cardiology, [facility] 132 [facility] [place] [address] Anabel Covington CRNP [address] [place] [address] [place] [phone] 10/30/2023 11:40 AM EST Laboratory Laboratory, [facility] [address] [facility] [place] [phone] [facility] 132 [facility] [place] [address] 10/31/2023 6:15 AM EST [facility] Call [facility] [facility] [address] [facility] [address] [facility] [address] 11/07/2023 8:00 AM EST Office Visit [place] [address] [place] [phone] Campos Lange MD [address] [place] [address] 11/28/2023 7:00 AM EDT Office Visit Family [facility] 132 [facility] [place] [address] Alicia Meyers CRNP 132 [facility] [place] [address] 11/28/2023 8:15 AM EDT Office Visit Orthopaedics [facility] [address] [place] [address] Jurgen Hare, [address] [place] [address] 01/24/2024 8:00 AM EDT Imaging Radiology [facility] 1st Floor, [place] [address] [place] [address] Scheduled Procedures Name Priority Associated Diagnoses Date/Ti [...] Ratio 11/07/2023 11/07/2022 CKD PHOS USE SMARTSET 15386 11/07/2023 02/2 09/2022, 07/23/2019, 03/25/2014 Mammogram 01/23/2024 01/22/2023, 04/2023, 01/03/2022, Additional history exists TSH 04/27/2024 04/27/2023, 02/15, 11/07/2022, Additional history exists CKD HGB USE SMARTSET 68482 04/30/202404/30, 04/30/2023, 11/07/2022, Additional history exists Diabetes [...] and were consensually agreed upon. Care Teams Bottle Washing Machine Operator Relationship Specialty Start Date End Date Campos Lange MD [address] [facility] [address] PCP - General Family Medicine 10/07/15 documented as of this encounter
[2024-04-11 00:20] LABS: Hematocrit (blood only) 39.3 % (37.0-47.0); Hemoglobin 12.8 g/dl (12.0-16.0)
[2024-04-11 00:42] LABS: Appearance Urine Clear (Clear); Bilirubin Urine Negative (Negative); Blood Urine Negative (Negative); Color Urine Yellow; Glucose Urine UA Negative (Negative); Ketones Urine Negative (Negative); Leukocyte Esterase Urine Negative (Negative); Nitrite Urine Negative (Negative); Protein Urine Negative (Negative); Specific Gravity Urine 1.014 (1.000-1.030); Urobilinogen Urine Negative (Negative)
[2024-04-11] MEDS: SODIUM CHLORIDE 0.45 % 1,000 ML IV STA (00:44)
[2024-04-11] MEDS: LEVOTHYROXINE SODIUM 175 MCG TABLET PO SCH (05:56)
[2024-04-11 07:43] LABS: Basophils # (auto) 0.01 K/uL (0.00-0.20); Basophils % (auto) 0.2 %; Eosinophils # (auto) 0.12 K/uL (0.00-0.50); Hemoglobin 12.3 g/dl (12.0-16.0); Immature Granulocytes # (auto) 0.02 K/uL (0.01-0.20); Immature Granulocytes % (auto) 0.3 %; Lymphocytes # (auto) 1.18 K/uL (1.20-3.40); Lymphocytes % (auto) 19.7 %; Mean Corpuscular Hemoglobin 27.8 pg (25.0-34.0); Mean Corpuscular Hgb Conc 32.4 g/dL (32.0-36.0); Mean Corpuscular Volume 85.8 fL (80.0-100.0); Mean Platelet Volume 10.7 fL (9.4-12.4); Monocytes # (auto) 0.33 K/uL (0.11-0.59); Monocytes % (auto) 5.5 %; Neutrophils # (auto) 4.33 K/uL (1.40-6.50); Neutrophils % (auto) 72.3 %; Platelet Count 148 K/uL (130-400); RDW Standard Deviation 47.4 fL (36.4-46.3); Red Blood Count 4.43 M/uL (4.20-5.40); White Blood Count 5.99 K/ul (4.8-10.8)
[2024-04-11 08:05] LABS: BUN Creatinine Ratio 16.7 (10-20); Calcium 8.8 mg/dl (8.6-10.3); Creatinine Clr Calc Pharmacy 73.6 ml/min; Est GFR (African American) 65.9 ml/min; Est GFR (Non-African American) 56.9 ml/min; Potassium 3.8 mmol/L (3.5-5.1); Prothrombin Time 86.4 Seconds (9.0-12.0)
[2024-04-11] MEDS: PANTOprazole 40 MG TAB PO SCH (08:12)
[2024-04-11] MEDS: FLUTICASONE PROPIONATE NA SPR 16 GM BTL SCH (08:12)
[2024-04-11] MEDS: amLODIPine BESYLATE 5 MG TAB PO SCH (08:12)
[2024-04-11] MEDS: AMIODARONE 200 MG TAB PO SCH (08:12)
[2024-04-11 08:18] LABS: INR > 9.5 (0.9-1.1)
[2024-04-11] MEDS: PHYTONADIONE 2.5 MG in DEXTROSE 5% 50 ML IV ONE (09:18)
[2024-04-11 13:38] LABS: Prothrombin Time 74.8 Seconds (9.0-12.0)
--- NOTE | 2024-04-11 14:10 | Hospitalist Progress Note ---
Date of Service April 11, 2024 Assessment & Plan (1) Coagulopathy: Plan: 68-year-old lady with PMH of chronic diastolic heart failure [55% TTE 2023], PE/A-fib on Coumadin, valvular heart disease [mild MR/TR], HTN, thyroid cancer status post surgery, postsurgical hypothyroidism, GERD came in with complaint of nonpainful right ankle bleeding since the morning of the arrival today, patient denies any trauma or recent changes in Coumadin dosing or recent medication changes or drastic changes in her appetite habits. Right ankle laceration was noted and was sutured in the ED. She is being managed for the following: Hemorrhagic disorder due to extrinsic circulation anticoagulant ISO Coumadin therapy, coagulopathy, and bleeding wound Supratherapeutic INR Right ankle laceration: sutured at ED. Admitting PT/INR of greater than 9.5 02/26/2024 Pharmacy note: 5mg MoFr, 10 mg daily all other days. 02/25/24 INR 2.6. Patient denies any recent medication changes/febrile illness/drastic appetite changes/overdosing on Coumadin at home. Patient received 5 mg vitamin K p.o. at ED on 04/10, INR still elevated today greater than 9.5, will give additional 2.5 mg IV vitamin K and follow-up PT/INR in the afternoon and in the morning. Fall precaution, right ankle dressing clean/dry/intact. Patient is hemodynamically stable, monitor H&H. Coumadin on hold, will likely need to resume at low-dose, patient made aware to closely follow-up with Coumadin clinic on discharge. Acute kidney injury: Admitting creatinine of 1.29, baseline creatinine around 0.9. Status post IV fluid. Resolved. Other chronic medical conditions: Continue with/resume home meds as and when able. PE/pA-fib : coumadin as above. chronic diastolic heart failure (55 %, TTE 2023), patient euvolemic to dry valvular heart disease (mild MR/TR) hypertension, stable thyroid cancer status post surgery postsurgical hypothyroidism, TSH slightly elevated. Repeat TFT in 6 weeks, c/w home levothyroxine dose. DVT prophylaxis. SCDs while Coumadin on hold if INR less than 2 Full code Text document was generated using [employer] voice recognition software. It may contain grammatical or spelling errors. Kindly contact undersigned for clarification of any documentation item in question. Admission and Anticipated Discharge Date Admission Date: April 10, 2024 Subjective Patient was seen and examined at bedside. Patient was lying in bed, on room air, NAD, resting comfortably. Patient reports bleeding from the right ankle had to stop. Patient denies any other review of symptoms. Patient reports eating okay and moving bowels okay. Patient denies any changes in her medication in the last 1 to 2 months, patient denies overdosing on Coumadin at home, patient denies any drastic changes in her appetite. Patient denies any recent febrile illness. Physical Exam Physical Exam: GENERAL: Comfortable, morbidly obese, pleasant, no respiratory distress SKIN: Normal color, warm HEENT: [place] palpebral conjunctivae, no ptosis, dry buccal mucosa NECK : Supple, short neck, no tenderness CHEST : CTA, no tenderness HEART : RRR, no obvious murmurs ABDOMEN: Marked distention, nontender EXTREMITIES : Bilateral LE venous stasis without tenderness, RLE dressing NEUROLOGIC : Coherent, no facial asymmetry, no other gross focality Results & Data Results & Data Vital Signs (Past 12 Hours) Vital Signs Temp Pulse Pulse Resp BP Pulse Ox O2 Del Method 04/11/24 13:00 85 04/11/24 11:50 36.5 C 71 18 129/77 91 Room Air 04/11/24 08:28 Room Air 04/11/24 07:20 36.8 C 75 18 159/98 H 92 Room Air 04/11/24 07:00 62 04/11/24 03:29 68 04/11/24 02:40 36.7 C 71 12 90 Room Air
[2024-04-11 14:32] LABS: INR 8.3 (0.9-1.1)
[2024-04-11] MEDS: MONTELUKAST SODIUM 10 MG TABLET PO SCH (21:20)
[2024-04-12 07:46] LABS: Hematocrit (blood only) 37.4 % (37.0-47.0); Hemoglobin 11.9 g/dl (12.0-16.0); Mean Corpuscular Hemoglobin 27.6 pg (25.0-34.0); Mean Corpuscular Hgb Conc 31.8 g/dL (32.0-36.0); Mean Corpuscular Volume 86.8 fL (80.0-100.0); Mean Platelet Volume 10.9 fL (9.4-12.4); Platelet Count 140 K/uL (130-400); RDW Standard Deviation 48.2 fL (36.4-46.3); Red Blood Count 4.31 M/uL (4.20-5.40); White Blood Count 5.63 K/ul (4.8-10.8)
[2024-04-12 08:09] LABS: BUN Creatinine Ratio 14.9 (10-20); Calcium 8.8 mg/dl (8.6-10.3); Creatinine Clr Calc Pharmacy 55.7 ml/min; Est GFR (African American) 47.4 ml/min; Est GFR (Non-African American) 40.9 ml/min; Magnesium 2.2 mg/dl (1.7-2.4); Phosphorus 4.6 mg/dl (2.5-4.9); Potassium 4.3 mmol/L (3.5-5.1)
[2024-04-12 08:10] LABS: INR 3.6 (0.9-1.1); Prothrombin Time 34.8 Seconds (9.0-12.0)
[2024-04-12] MEDS: SODIUM CHLORIDE 0.9% 1,000 ML IV SCH (09:19)
--- NOTE | 2024-04-12 15:56 | Hospitalist Progress Note ---
Date of Service April 12, 2024 Assessment & Plan (1) Coagulopathy: Plan: 68-year-old lady with PMH of chronic diastolic heart failure [55% TTE 2023], PE/A-fib on Coumadin, valvular heart disease [mild MR/TR], HTN, thyroid cancer status post surgery, postsurgical hypothyroidism, GERD came in with complaint of nonpainful right ankle bleeding since the morning of the arrival today, patient denies any trauma or recent changes in Coumadin dosing or recent medication changes or drastic changes in her appetite habits. Right ankle laceration was noted and was sutured in the ED. She is being managed for the following: Hemorrhagic disorder due to extrinsic circulation anticoagulant ISO Coumadin therapy, coagulopathy, and bleeding wound Supratherapeutic INR Right ankle laceration: sutured at ED. Admitting PT/INR of greater than 9.5 02/26/2024 Pharmacy note: 5mg MoFr, 10 mg daily all other days. 02/25/24 INR 2.6. Patient denies any recent medication changes/febrile illness/drastic appetite changes/overdosing on Coumadin at home. Patient received 5 mg vitamin K p.o. at ED on 04/10, INR still elevated on 04/11 greater than 9.5, received additional 2.5 mg IV vitamin K on 04/11. Fall precaution, right ankle dressing clean/dry/intact. Patient is hemodynamically stable, monitor H&H. Coumadin on hold, will likely need to resume at low-dose, patient made aware to closely follow-up with Coumadin clinic on discharge. Inr 3.6 today, f/u in AM. Acute kidney injury: Admitting creatinine of 1.29, baseline creatinine around 0.9. Cr again up today, c/w ivf, labs in AM. Other chronic medical conditions: Continue with/resume home meds as and when able. PE/pA-fib : coumadin as above. chronic diastolic heart failure (55 %, TTE 2023), patient euvolemic to dry valvular heart disease (mild MR/TR) hypertension, stable thyroid cancer status post surgery postsurgical hypothyroidism, TSH slightly elevated. Repeat TFT in 6 weeks, c/w home levothyroxine dose. DVT prophylaxis. SCDs while Coumadin on hold if INR less than 2 Full code Text document was generated using [employer] voice recognition software. It may contain grammatical or spelling errors. Kindly contact undersigned for clarification of any documentation item in question. Admission and Anticipated Discharge Date Admission Date: April 10, 2024 Subjective Patient was seen and examined at bedside. Patient was lying in bed, on room air, NAD, resting comfortably. Patient reports rt ankel bleeding stopped. Patient denies any other review of symptoms. Patient reports eating okay and moving bowels okay. no interval changes. Physical Exam Physical Exam: GENERAL: Comfortable, morbidly obese, pleasant, no respiratory distress SKIN: Normal color, warm HEENT: [place] palpebral conjunctivae, no ptosis, dry buccal mucosa NECK : Supple, short neck, no tenderness CHEST : CTA, no tenderness HEART : RRR, no obvious murmurs ABDOMEN: Marked distention, nontender EXTREMITIES : Bilateral LE venous stasis without tenderness, RLE dressing NEUROLOGIC : Coherent, no facial asymmetry, no other gross focality Results & Data Results & Data Vital Signs (Past 12 Hours) Vital Signs Temp Pulse Pulse Resp BP Pulse Ox O2 Del Method 04/12/24 15:46 36.9 C 68 18 121/75 89 L Room Air 04/12/24 11:53 36.4 C L 76 16 128/74 90 Room Air 04/12/24 08:25 36.6 C 75 16 126/76 94 Room Air 04/12/24 07:42 62 04/12/24 04:05 36.6 C 68 16 117/71 92 Room Air
[2024-04-13 05:50] LABS: Hematocrit (blood only) 39.4 % (37.0-47.0); Hemoglobin 12.7 g/dl (12.0-16.0); Mean Corpuscular Hemoglobin 27.8 pg (25.0-34.0); Mean Corpuscular Hgb Conc 32.2 g/dL (32.0-36.0); Mean Corpuscular Volume 86.2 fL (80.0-100.0); Mean Platelet Volume 10.7 fL (9.4-12.4); Platelet Count 155 K/uL (130-400); RDW Coefficient of Variation 14.9 % (11.5-14.5); RDW Standard Deviation 47.3 fL (36.4-46.3); Red Blood Count 4.57 M/uL (4.20-5.40); White Blood Count 6.63 K/ul (4.8-10.8)
[2024-04-13 06:02] LABS: Creatinine Clr Calc Pharmacy 61.7 ml/min; Est GFR (African American) 53.6 ml/min; Est GFR (Non-African American) 46.3 ml/min; Potassium 4.5 mmol/L (3.5-5.1)
[2024-04-13 06:11] LABS: INR 2.5 (0.9-1.1); Prothrombin Time 25.3 Seconds (9.0-12.0)
--- NOTE | 2024-04-13 12:26 | Discharge Summary ---
Date of Service April 13, 2024 Admission HPI Per Admitting Provider History obtained from patient, family, and records. Medical history significant for chronic diastolic heart failure (55 %, TTE 2023), PE/A-fib on Coumadin, valvular heart disease (mild MR/TR), hypertension, thyroid cancer status post surgery, postsurgical hypothyroidism, GERD. Last confinement last month for rapid A-fib status post cardioversion. Patient woke up this morning at home with nonpainful right ankle bleeding. Not sure about trauma. No recent changes in Coumadin dosing. Spontaneous cessation of bleeding at home. Patient took granddaughter for swimming this afternoon. Upon coming out of the pool, patient noted recurrent bleeding on right ankle from a small wound. No headache, no dizziness, no chest pain, no SOB. Patient consulted ER for evaluation. Right ankle laceration sutured at the ER. Oral Vitamin K administered at the ER. 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 Admission Exam Per Admitting Provider GENERAL: Comfortable, morbidly obese, pleasant, no respiratory distress SKIN: Normal color, warm HEENT: [place] palpebral conjunctivae, no ptosis, dry buccal mucosa NECK : Supple, short neck, no tenderness CHEST : CTA, no tenderness HEART : RRR, no obvious murmurs ABDOMEN: Marked distention, nontender EXTREMITIES : Bilateral LE venous stasis without tenderness, RLE dressing NEUROLOGIC : Coherent, no facial asymmetry, no other gross focality Principal Diagnosis Supratherapeutic INR Acute kidney injury Right ankle laceration Discharge Exam GENERAL: Comfortable, morbidly obese, pleasant, no respiratory distress SKIN: Normal color, warm HEENT: [place] palpebral conjunctivae, no ptosis, moist buccal mucosa NECK : Supple, short neck, no tenderness CHEST : CTA, no tenderness HEART : RRR, no obvious murmurs ABDOMEN: Marked distention, nontender EXTREMITIES : Bilateral LE venous stasis without tenderness, RLE dressing NEUROLOGIC : Coherent, no facial asymmetry, no other gross focality Discharge Data Allergies Allergy/AdvReac Type Severity Reaction Status Date / Time No Known Allergies Allergy Unknown 0 Verified 04/10/24 21:01 Consultations 04/10/24 21:24 ED Decision to Admit Stat Hospital Course (1) Coagulopathy: 68-year-old lady with PMH of chronic diastolic heart failure [55% TTE 2023], PE/A-fib on Coumadin, valvular heart disease [mild MR/TR], HTN, thyroid cancer status post surgery, postsurgical hypothyroidism, GERD came in with complaint of nonpainful right ankle bleeding since the morning of the arrival today, patient denies any trauma or recent changes in Coumadin dosing or recent medication changes or drastic changes in her appetite habits. Right ankle laceration was noted and was sutured in the ED. She was managed for the following: Hemorrhagic disorder due to extrinsic circulation anticoagulant ISO Coumadin therapy, coagulopathy, and bleeding wound Supratherapeutic INR Right ankle laceration: sutured at ED. Admitting PT/INR of greater than 9.5 02/26/2024 Pharmacy note: 5mg MoFr, 10 mg daily all other days. 02/25/24 INR 2.6. Patient denies any recent medication changes/febrile illness/drastic appetite changes/overdosing on Coumadin at home. Patient received 5 mg vitamin K p.o. at ED on 04/10, INR still elevated on 04/11 greater than 9.5, received additional 2.5 mg IV vitamin K on 04/11. Fall precaution, right ankle dressing clean/dry/intact. Patient is hemodynamically stable, HnH stable. INR 2.5 today. d/w our coumadin pharmacist. Will dc her on 5mg daily and pt has been made aware to f/u w/ coumadin clinic in 2 days of discharge. Acute kidney injury: Admitting creatinine of 1.29, baseline creatinine around 0.9. Cr trending down, hold lasix for few days on discharge. Other chronic medical conditions: Continue with/resume home meds as and when able. PE/pA-fib : coumadin as above. chronic diastolic heart failure (55 %, TTE 2023), patient euvolemic to dry valvular heart disease (mild MR/TR) hypertension, stable thyroid cancer status post surgery postsurgical hypothyroidism, TSH slightly elevated. Repeat TFT in 6 weeks, c/w home levothyroxine dose. DVT prophylaxis. SCDs while Coumadin on hold if INR less than 2 Full code Patient is being discharged to home with following instruction at the point of discharge: Follow-up with your primary care physician within a week time and likely you will need labs CBC/CMP/magnesium/phosphorus. You were admitted with supratherapeutic INR and right ankle laceration. Your Coumadin dose has been decreased to 5 mg daily. As discussed at the bedside, it is very important that you follow-up with Coumadin clinic in 2 days time upon discharge and further recommendation will come from your Coumadin clinic regarding your anticoagulation. Regarding your right ankle laceration suture, have yourself evaluated with your PCP office in a week time for possible removal of suture. Your thyroid hormone was slightly elevated while in the hospital, you will need repeat thyroid function test in 6 weeks time, coordinate with your PCP office to set up the test. Take your medications as prescribed. Please make sure that you are able to get your medications today by calling your pharmacy before you leave the hospital so that your treatment continuity is not broken. Text document was generated using [employer] voice recognition software. It may contain grammatical or spelling errors. Kindly contact undersigned for clarification of any documentation item in question. Home Health Attestation I certify that this patient is under my care and that I, or a physicians ophthalmic assistant working with me, had a face to-face encounter that meets the home health [id number] encounter requirements with this patient. The encounter with the patient was in whole, or in part, for the following medical condition, which is the primary reason for home health care (list medical condition): I certify that, based on my findings, the following services are medically necessary home health services: My clinical findings support the need for the above services because: Further, I certify that my clinical findings support that this patient is homebound (i.e. absences from home require considerable and taxing effort and are for medical reasons or sikh services or infrequently or of short duration when for other reasons) because: Certification for Home Health Services: Based on the above findings, I certify that this patient is confined to the home and needs intermittent snf care, physical therapy and/or speech therapy or continues to need occupational therapy. The patient is under my care, and I have initiated the establishment of the plan of care. This patient will be followed by a physician who will periodically review the plan of care. Total Time Total Time Spent Total Time Spent (In Minutes): 45 Discharge Plan Discharge Items Patient Disposition: Home - Self-Care Reason For Visit: COAGULOPATHY Discharge Diagnosis: Supratherapeutic INR Acute kidney injury Right ankle laceration Activity: Resume your previous activity Non-emergency contact: Primary Care Provider Call non-emergency contact if: you have any medication questions Follow-up/Referrals: Campos Lange MD [Primary Care Provider] - Diet: Heart Healthy Addtl Attending Provider Instructions: Follow-up with your primary care physician within a week time and likely you will need labs CBC/CMP/magnesium/phosphorus. You were admitted with supratherapeutic INR and right ankle laceration. Your Coumadin dose has been decreased to 5 mg daily. As discussed at the bedside, it is very important that you follow-up with Coumadin clinic in 2 days time upon discharge and further recommendation will come from your Coumadin clinic regarding your anticoagulation. Regarding your right ankle laceration suture, have yourself evaluated with your PCP office in a week time for possible removal of suture. Your thyroid hormone was slightly elevated while in the hospital, you will need repeat thyroid function test in 6 weeks time, coordinate with your PCP office to set up the test. Take your medications as prescribed. Please make sure that you are able to get your medications today by calling your pharmacy before you leave the hospital so that your treatment continuity is not broken. Pending Studies at Discharge: No Stand-Alone Forms: My [facility] [employer], Smoking Cessation Medications and DC Order Prescriptions: New warfarin 5 mg tablet 5 mg PO DAILY Qty: 30 0RF Continued levothyroxine 175 mcg tablet 175 mcg PO DAILYBB omeprazole 20 mg capsule,delayed release(DR/EC) 20 mg PO DAILY fluticasone propionate 50 mcg/actuation spray,suspension 50 mcg INTRANASAL BID cholecalciferol (vitamin D3) [Vitamin D3] 10 mcg (400 unit) Tablet 10 mcg PO QAM cetirizine [Zyrtec] 10 mg Tablet 10 mg PO DAILY PRN (Reason: Cough) amiodarone 200 mg Tablet 200 mg PO QAM amlodipine 5 mg tablet 5 mg PO QAM montelukast 10 mg tablet 10 mg PO HS Held furosemide 40 mg Tablet 40 mg PO BID PRN (Reason: SWELLING) Hold Instructions: Resume on 04/16/24. Rx Instructions: TAKES 1 TO 2 TIMES PER DAY FOR SWELLING Discontinued warfarin 10 mg tablet See Rx Instructions .ROUTE .COMPLEX Rx Instructions: TAKES 10 MG SUN, MON, WED, THUR, & SAT, THEN 5 MG ON & SUN. Discharge Orders: Discharge Order (Routine); Ordered 04/13/24 Ordered By: Samson Glynn Admission Data Admit Date/Time: 04/10/24 23:09 Attending Provider: Samson Glynn Admit Provider: Tej Pelaez Primary Care Provider: Campos Lange Other Providers: Tej Pelaez
== END 2024-04-13 13:36 | disposition home or self-care (01) | DRG 813 ==
LOC: ED 18:19 → 2W 23:09